=== PATIENT | female | born 1975 | race Caucasian/White ===

== ENCOUNTER → 2016-03-10 | Outpatient (CLI) | payer BC, OTHER ==
[2016-03-10 09:24] VITALS: BP 123/66; PULSE 75; RESP 20; TEMP 98.2; BMI 33.7
--- NOTE | 2016-03-10 10:08 | P.PN ---
Progress Note - Text The patient was seen in the bariatric clinic. She is doing well. Her MARY drain output is approximately 100 mL per day. Her skin incision site is healing. On exam her lesser she'll. Her abdomen soft. Her incision is clean dry intact. A staple had rotated this is removed today. The patient is status post cholecystectomy. She'll follow-up in one week for MARY drain removal. She was instructed to stop smoking again.
== END | disposition home or self-care (01) ==
LOC: BARWHC3 09:09
PROVIDERS: ATTEND Surgery
DX: Z48.815 Encounter for surgical aftercare following surgery on the digestive system (principal); Z98.84 Bariatric surgery status; F17.200 Nicotine dependence, unspecified, uncomplicated
CPT/HCPCS: 99212

== ENCOUNTER → 2016-03-16 | Outpatient (CLI) | payer BC, OTHER ==
[2016-03-16 14:30] VITALS: BP 130/83; PULSE 75; RESP 16; TEMP 97.2; BMI 33.5
--- NOTE | 2016-03-16 16:11 | P.HPBAR ---
Bariatric H&P - History & Physicial H&P Date: 03/16/16 History & Physicial: Visit/CC: Immanuel follow-up Patient initial contact: Initial weight: 191.416 kg Initial weight in pounds: 422.00 Height: 5 ft 3.5 in Initial BMI: 73.5 Last weight: Current weight: 87.09 kg Current weight in pounds: 192.00 Current BMI: 33.5 [place] body weight (based on NIH guidelines): 53.297 kg Excess body weight loss: 75.5% The patient is a 40 year-old F who presents for Bariatric Assessment. Patient presents today for panniculus fall. She is doing quite well. Her incision is well-healed. Past Medical History Past Medical History: Asthma, Diabetes Mellitus Additional Past Medical History / Comment(s): PAST HX OF HTN, DIABETES -NO PROBLEM NOW-CHECKS SELF DAILY BUT TAKES NO MEDS., VARICOSE VEINS, SLEEP APNEA- DOES NOT USE MACHINE, CHRONIC BACK PAIN, RIGHT ROTATOR CUFF TEAR WITH LIMITED R.O.M., RIGGS ON RIGHT ARM, HX OF MULTIPLE KIDNEY INFECTIONS.INTERMITENT PROBLEM SWALLOWING FOODS History of Any Multi-Drug Resistant Organisms: None Reported Past Surgical History: Bariatric Surgery, Section, Tubal Ligation Additional Past Surgical History / Comment(s): X3, GASTRIC SLEEVE ( 2011), OVARY REMOVED., URETERAL STENT.PANNICULECTOMY with 2 kurtis drains Past Psychological History: No Psychological Hx Reported, Anxiety, Panic Disorder Smoking Status: Current every day smoker Past Alcohol Use History: Occasional Past Drug Use History: None Reported Surgical - Exam Vital Signs Temp Pulse Resp BP 97.2 F L 75 16 130/83 03/16/16 14:28 03/16/16 14:28 03/16/16 14:28 03/16/16 14:28 - General well developed, no distress - Eyes PERRL - ENT normal pinna - Neck no masses - Respiratory normal expansion - Cardiovascular Rhythm: regular - Abdomen Abdomen: soft, non tender Bariatric Assessment & Plan Plan: Status post pinning colectomy. Patient chelsy removed in the office today. She'll follow-up in one month for recheck. Bariatric Checklist Checklist: Plan: Checklist: EGD: 1. Hiatal hernia: 2. H. Pylori: HgbA1c: Vitamin D: Smoking: Current every day smoker Primary care physician referral: dr miranda Psychiatry clearance: Cardiology clearance: Sleep study: Diet journal: VTE risk score: VTE risk level: Rehab needs at discharge:
== END | disposition home or self-care (01) ==
LOC: BARWHC3 13:51
PROVIDERS: ATTEND Surgery
DX: Z48.815 Encounter for surgical aftercare following surgery on the digestive system (principal); Z98.84 Bariatric surgery status; Z68.33 Body mass index [BMI] 33.0-33.9, adult; F17.200 Nicotine dependence, unspecified, uncomplicated
CPT/HCPCS: 99211

== ENCOUNTER → 2016-04-06 | Outpatient (CLI) | payer BC, OTHER ==
--- NOTE | 2016-04-06 14:44 | P.HPBAR ---
Bariatric H&P - History & Physicial H&P Date: 04/06/16 History & Physicial: Visit/CC: follow up panni visit Patient initial contact: Initial weight: 191.416 kg Initial weight in pounds: 422.00 Height: 5 ft 3.5 in Initial BMI: 73.5 Last weight: Current weight: 90.129 kg Current weight in pounds: 198.70 Current BMI: 34.6 [place] body weight (based on NIH guidelines): 53.297 kg Excess body weight loss: 73.3% The patient is a 41 year-old F who presents for Bariatric Assessment. The patient presents today for sleeve follow-up. She had a panniculectomy performed approximately 8 weeks ago. The patient states that she is also swelling in her left groin. She saw her family doctor who is concerned she may seroma. She is also recent started Chantix. She is continuing to smoke. Review of Systems Constitutional: Reports as per HPI Past Medical History Past Medical History: Asthma, Diabetes Mellitus Additional Past Medical History / Comment(s): PAST HX OF HTN, DIABETES -NO PROBLEM NOW-CHECKS SELF DAILY BUT TAKES NO MEDS., VARICOSE VEINS, SLEEP APNEA- DOES NOT USE MACHINE, CHRONIC BACK PAIN, RIGHT ROTATOR CUFF TEAR WITH LIMITED R.O.M., RIGGS ON RIGHT ARM, HX OF MULTIPLE KIDNEY INFECTIONS.INTERMITENT PROBLEM SWALLOWING FOODS History of Any Multi-Drug Resistant Organisms: None Reported Past Surgical History: Bariatric Surgery, Section, Tubal Ligation Additional Past Surgical History / Comment(s): X3, GASTRIC SLEEVE ( 2011), OVARY REMOVED., URETERAL STENT.PANNICULECTOMY with 2 kurtis drains Past Psychological History: No Psychological Hx Reported, Anxiety, Panic Disorder Smoking Status: Current every day smoker Past Alcohol Use History: Occasional Past Drug Use History: None Reported Surgical - Exam Vital Signs Temp Pulse BP 98.0 F 78 131/69 04/06/16 14:18 04/06/16 14:18 04/06/16 14:18 - General well developed, no distress - Eyes PERRL - ENT normal pinna - Neck no masses - Respiratory normal expansion - Cardiovascular Rhythm: regular - Abdomen 10 cm fluctuant mass consistent with seroma in the left groin. Abdomen: soft, non tender Bariatric Assessment & Plan Plan: Seroma of left abdominal wall/groin. Patient will undergo ultrasound-guided seroma drainage with catheter placement. She'll follow-up next week. Bariatric Checklist Checklist: Plan: Checklist: EGD: 1. Hiatal hernia: 2. H. Pylori: HgbA1c: Vitamin D: Smoking: Current every day smoker Primary care physician referral: Dr Alfaro Psychiatry clearance: Cardiology clearance: Sleep study: Diet journal: VTE risk score: VTE risk level: Rehab needs at discharge:
[2016-04-06 14:53] VITALS: BP 131/69; PULSE 78; TEMP 98; BMI 34.6
== END | disposition home or self-care (01) ==
LOC: BARWHC3 13:45
PROVIDERS: ATTEND Surgery
DX: Z48.815 Encounter for surgical aftercare following surgery on the digestive system (principal); Z98.84 Bariatric surgery status; Z68.34 Body mass index [BMI] 34.0-34.9, adult; F17.200 Nicotine dependence, unspecified, uncomplicated; K91.872 Postprocedural seroma of a digestive system organ or structure following a digestive system procedure
CPT/HCPCS: 99211

== ENCOUNTER 2016-04-07 08:15 | Day surgery (SDC) | payer BC, OTHER ==
[2016-04-07 08:33] VITALS: BP 143/84; PULSE 78; RESP 18; TEMP 98.1
--- NOTE | 2016-04-07 10:27 | US ---
EXAMINATION TYPE: US peritoneal/retroperi drain DATE OF EXAM: 04/07/2016 9:45 AM HISTORY: Seroma postop FINDINGS: Maximal barrier technique was utilized. The skin overlying a suitable path to the fluid wa s localized with ultrasound and the overlying skin prepped and draped. Lidocaine was used for local a nesthesia. A skin cris made with a scalpel. Access was gained under direct ultrasound guidance to t he fluid with a 21-gauge needle. Ultrasound was utilized using sterile technique. A 0.018 inch wire was advanced. Access site was dilated and an 8.5-[place] catheter advanced into the seroma. Hussein us serous fluid returned. Catheter fixed to the skin. Hemostasis achieved. No immediate complicati on and the patient remained in stable condition. IMPRESSION: STATUS POST ULTRASOUND GUIDED SEROMA DRAINAGE, THIS PROCEDURE WAS PERFORMED BY THE UNDERS IGNED.
== END 2016-04-07 10:45 | disposition home or self-care (01) ==
LOC: RADPROMAIN 08:15
PROVIDERS: ATTEND Surgery
DX: L76.34 Postprocedural seroma of skin and subcutaneous tissue following other procedure (principal); T79.2XXA Traumatic secondary and recurrent hemorrhage and seroma, initial encounter
CPT/HCPCS: 49406; 76942

== ENCOUNTER 2016-04-13 13:50 | Emergency (ER) | payer BC, OTHER ==
[2016-04-13] MEDS ORDERED: SODIUM CHLORIDE 0.9% 1,000 ML IV STA (15:08)
[2016-04-13] MEDS ORDERED: METOCLOPRAMIDE 5 MG/ML 2 ML VIAL IVP STA (15:08)
[2016-04-13] MEDS ORDERED: HYDROmorphone 1 MG/ML 1 ML SYRINGE IVP STA (15:08)
[2016-04-13] MEDS ORDERED: SODIUM CHLORIDE 0.9% 500 ML IV STA (15:08)
--- NOTE | 2016-04-13 15:18 | ED ---
General Adult HPI - General Chief complaint: Headache Stated complaint: post op-fever/chills/chest pain Time Seen by Provider: 04/13/16 14:51 Source: patient, family, RN notes reviewed, old records reviewed Mode of arrival: wheelchair Limitations: no limitations - History of Present Illness Initial comments: Chief complaint history of present illness a 41-year-old female here with his significant other. The patient had a headache since this morning. Patient has a history of migraines but a few recently. Patient also here because she has aches and pains to her body. She did have a flu shot this year. Another complaint is she had Fred-Atkins type drain placed one week ago to drain fluid accumulated since February 19 when she had a panniculectomy. The drainage in the bag the past 3 days approximately 10 ML's. Serosanguineous in color. The patient does report when she removed the dressing the tubing cannot approximate 5 inches. There was foul-smelling material on the bandage which had not been changed since initial application one week ago. - Related Data Home Medications Medication Instructions Recorded Confirmed Fexofenadine HCl [[place]ana Allergy] 180 mg PO DAILY 07/19/14 04/13/16 Omeprazole [PriLOSEC] 20 mg PO AC-BRKFST 07/19/14 04/13/16 Simvastatin [Zocor] 40 mg PO QAM 07/19/14 04/13/16 Venlafaxine HCl ER [Effexor XR] 150 mg PO DAILY 07/19/14 04/13/16 Albuterol Sulfate [Proair Hfa] 1 - 2 puff INHALATION RT-Q6H PRN 02/17/16 Ascorbic Acid [Vitamin C] 1,000 mg PO DAILY 02/17/16 04/13/16 Vitamin B Complex 1 cap PO DAILY 02/17/16 04/13/16 oxyCODONE-APAP 10-325MG [Percocet 1 tab PO TID PRN 03/02/16 04/13/16 10-325 mg] Varenicline [Chantix] 1 mg PO BID 04/06/16 04/13/16 ALPRAZolam [Xanax] 0.5 mg PO TID PRN 04/13/16 04/13/16 Calcium Citrate 1200mg+Vitamin D 1 tab PO DAILY 04/13/16 04/13/16 Magnesium Gluconate [Magonate] 500 mg PO DAILY 04/13/16 04/13/16 Multivit-Min/Fe Fum/FA/Vit K 1 cap PO DAILY 04/13/16 04/13/16 [Women's Multivatimin] [place]-3 Fatty Acids/Fish Oil [Fish 1 cap PO DAILY 04/13/16 04/13/16 Oil 1,000 mg Softgel] Allergies Allergy/AdvReac Type Severity Reaction Status Date / Time latex Allergy Unknown Rash/Hives Verified 04/13/16 15:24 Review of Systems ROS Statement: Those systems with pertinent positive or pertinent negative responses have been documented in the HPI. Review of systems patient has a bitemporal headache typical of migraines in the past mild photophobia nausea vomiting at home. Rotator cuff pain on the right shoulder which is causing her usual left arm left shoulder more developing 8 tension neck discomfort for several weeks. No meningismus. No shortness of breath. Mild discomfort to the pectoralis muscle on the right anterior chest wall. Reproducible with palpation. Appetite is unchanged, bowel habits normal. No change in urination pattern. All systems are reviewed past medical problems significant for migraines, asthma she smokes she is on Chantix trying to stop. Diabetes been controlled with weight loss currently diet controlled. Past history of hypertension is also stop when she lost large amount of weight over the past 5 years. Surgeries bariatric surgery 5 years ago, 3 C-sections, tubal ligation, cervical fusion, panniculectomy 7 weeks ago. She has had a Fred-Atkins type drain in the left side which are in the large amount initially and only 10 mL with a past 3 days. Again she does smoke trying to stop with Chantix drink alcohol socially. ROS Other: All systems not noted in ROS Statement are negative. Past Medical History Past Medical History: Asthma, Diabetes Mellitus Additional Past Medical History / Comment(s): PAST HX OF HTN, DIABETES -NO PROBLEM NOW-CHECKS SELF DAILY BUT TAKES NO MEDS., VARICOSE VEINS, SLEEP APNEA- DOES NOT USE MACHINE, CHRONIC BACK PAIN, RIGHT ROTATOR CUFF TEAR WITH LIMITED R.O.M., RIGGS ON RIGHT ARM, HX OF MULTIPLE KIDNEY INFECTIONS.INTERMITENT PROBLEM SWALLOWING FOODS History of Any Multi-Drug Resistant Organisms: None Reported Past Surgical History: Bariatric Surgery, Section, Tubal Ligation Additional Past Surgical History / Comment(s): X3, GASTRIC SLEEVE ( 2011), OVARY REMOVED., URETERAL STENT.PANNICULECTOMY with 2 kurtis drains Past Anesthesia/Blood Transfusion Reactions: No Reported Reaction Past Psychological History: No Psychological Hx Reported, Anxiety, Panic Disorder Smoking Status: Current every day smoker Past Alcohol Use History: Occasional Past Drug Use History: Marijuana General Exam - General Exam Comments Initial Comments: General: The patient is awake and alert, complaining of a migraine headache bitemporal. Mild photophobia nausea vomiting at home. No signs temp 98.2 pulse 96 respiratory rate 20 pulse ox 96% room air blood pressure 118/78 Eye: Pupils are equal, round and reactive to light, extra-ocular movements are intact ; there is normal conjunctiva bilaterally. No signs of icterus. Ears, nose, mouth and throat: There are moist mucous membranes and no oral lesions. Neck: The neck is supple, there is no tenderness . Cardiovascular: There is a regular rate and rhythm. No murmur, rub or gallop is appreciated. Respiratory: Lungs are clear to auscultation, respirations are non-labored, breath sounds are equal. No wheezes, stridor, rales, or rhonchi. Gastrointestinal: Soft, non-distended, tender abdomen on the cicatrix of the panniculectomy. Fred-Atkins type drain draining only had an ulcer over the past 3 days per patient.. There is no rebound or guarding present. No CVA tenderness. Bowel sounds are unremarkable. Bowel movements normal. Back: No complaint of any back pain. Musculoskeletal: Right rotator cuff history of pain. Increasing used to the left arm causing discomfort to the left arm. Neurological: Neurologically intact no focal or lateralizing findings Skin: Skin is warm and dry and no rashes or lesions are noted. Limitations: no limitations Course Vital Signs 04/13/16 04/13/16 04/13/16 13:52 15:42 16:58 Temperature 98.2 F 98.4 F 97.4 F L Pulse Rate 96 84 78 Respiratory 20 16 18 Rate Blood Pressure 118/78 128/62 128/80 O2 Sat by Pulse 96 98 98 Oximetry Medical Decision Making - Medical Decision Making Medical decision making the patient's white count is 10 hemoglobin 12 hematocrit 38, potassium 4.6, BUN 19 creatinine 0.6 with a GFR greater than 60. Glucose 93. Influenza negative. Urine since it clean no signs of infection. Doing better after the medications given and the hydration. I discussed with her general surgeon Dr. dr javier he agrees the Fred- Atkins type drain can be removed at this time as it was supposed to have been removed in the office today had she gone to the office and had the patient states she's had less than 10 ML's in the drainage bag over the past 3 days. The patient will be advised to follow-up with Dr. Faye. - Lab Data Result diagrams: 04/13/16 15:35 04/13/16 15:35 Lab Results 04/13/16 04/13/16 04/13/16 Range/Units 15:35 15:35 15:35 WBC 10.6 (3.8-10.6) k/uL RBC 4.10 (3.80-5.40) m/uL Hgb 12.6 (11.4-16.0) gm/dL Hct 38.3 (34.0-46.0) % MCV 93.4 (80.0-100.0) fL MCH 30.7 (25.0-35.0) pg MCHC 32.8 (31.0-37.0) g/dL RDW 12.5 (11.5-15.5) % Plt Count 347 (150-450) k/uL Neutrophils % 60 % Lymphocytes % 29 % Monocytes % 5 % Eosinophils % 4 % Basophils % 1 % Neutrophils # 6.4 (1.3-7.7) k/uL Lymphocytes # 3.0 (1.0-4.8) k/uL Monocytes # 0.5 (0-1.0) k/uL Eosinophils # 0.4 (0-0.7) k/uL Basophils # 0.1 (0-0.2) k/uL Sodium 140 (137-145) mmol/L Potassium 4.6 (3.5-5.1) mmol/L Chloride 106 (98-107) mmol/L Carbon Dioxide 23 (22-30) mmol/L Anion Gap 11 mmol/L BUN 19 H (7-17) mg/dL Creatinine 0.61 (0.52-1.04) mg/dL Est GFR (MDRD) Af Amer >60 (>60 ml/min/1.73 sqM) Est GFR (MDRD) Non-Af >60 (>60 ml/min/1.73 sqM) Glucose 93 (74-99) mg/dL Calcium 9.5 (8.4-10.2) mg/dL Total Bilirubin 0.4 (0.2-1.3) mg/dL AST 24 (14-36) U/L ALT 26 (9-52) U/L Alkaline Phosphatase 36 L (38-126) U/L Total Protein 7.0 (6.3-8.2) g/dL Albumin 3.9 (3.5-5.0) g/dL Urine Color Urine Appearance (Clear) Urine pH (5.0-8.0) Ur Specific [place] (1.001-1.035) Urine Protein (Negative) Urine Glucose (UA) (Negative) Urine Ketones (Negative) Urine Blood (Negative) Urine Nitrate (Negative) Urine Bilirubin (Negative) Urine Urobilinogen (<2.0) mg/dL Ur Leukocyte Esterase (Negative) Influenza Type A RNA Not Detected (Not Detectd) Influenza Type B (PCR) Not Detected (Not Detectd) 04/13/16 Range/Units 15:35 WBC (3.8-10.6) k/uL RBC (3.80-5.40) m/uL Hgb (11.4-16.0) gm/dL Hct (34.0-46.0) % MCV (80.0-100.0) fL MCH (25.0-35.0) pg MCHC (31.0-37.0) g/dL RDW (11.5-15.5) % Plt Count (150-450) k/uL Neutrophils % % Lymphocytes % % Monocytes % % Eosinophils % % Basophils % % Neutrophils # (1.3-7.7) k/uL Lymphocytes # (1.0-4.8) k/uL Monocytes # (0-1.0) k/uL Eosinophils # (0-0.7) k/uL Basophils # (0-0.2) k/uL Sodium (137-145) mmol/L Potassium (3.5-5.1) mmol/L Chloride (98-107) mmol/L Carbon Dioxide (22-30) mmol/L Anion Gap mmol/L BUN (7-17) mg/dL Creatinine (0.52-1.04) mg/dL Est GFR (MDRD) Af Amer (>60 ml/min/1.73 sqM) Est GFR (MDRD) Non-Af (>60 ml/min/1.73 sqM) Glucose (74-99) mg/dL Calcium (8.4-10.2) mg/dL Total Bilirubin (0.2-1.3) mg/dL AST (14-36) U/L ALT (9-52) U/L Alkaline Phosphatase (38-126) U/L Total Protein (6.3-8.2) g/dL Albumin (3.5-5.0) g/dL Urine Color [place] Urine Appearance Clear (Clear) Urine pH 6.0 (5.0-8.0) Ur Specific [place] 1.015 (1.001-1.035) Urine Protein Negative (Negative) Urine Glucose (UA) Negative (Negative) Urine Ketones Negative (Negative) Urine Blood Negative (Negative) Urine Nitrate Negative (Negative) Urine Bilirubin Negative (Negative) Urine Urobilinogen <2.0 (<2.0) mg/dL Ur Leukocyte Esterase Negative (Negative) Influenza Type A RNA (Not Detectd) Influenza Type B (PCR) (Not Detectd) Disposition Clinical Impression: Migraine Disposition: HOME SELF-CARE Condition: Fair Instructions: Acute Headache (ED) Time of Disposition: 17:36
[2016-04-13 15:59] LABS: Basophils # (A) 0.1 k/uL (0-0.2); Basophils % (A) 1 %; CH 30.9; CHCM 33.2; Eosinophils # (A) 0.4 k/uL (0-0.7); Eosinophils % (A) 4 %; HCT 38.3 % (34.0-46.0); HDW 2.35; HGB 12.6 gm/dL (11.4-16.0); Luc # (Auto) 0.21; Luc % (Auto) 2; Lymphocytes % (A) 29 %; MCH 30.7 pg (25.0-35.0); MCHC 32.8 g/dL (31.0-37.0); MCV 93.4 fL (80.0-100.0); Mean Platelet Volume 6.9; Monocytes # (A) 0.5 k/uL (0-1.0); Monocytes % (A) 5 %; Neutrophils # (A) 6.4 k/uL (1.3-7.7); Neutrophils % (A) 60 %; RDW 12.5 % (11.5-15.5); WBC 10.6 k/uL (3.8-10.6); WBC (Perox) 10.78
[2016-04-13 16:08] LABS: ALT 26 U/L (9-52); AST 24 U/L (14-36); Alkaline Phosphatase 36 U/L (38-126); Anion Gap 11 mmol/L; Blood Urea Nitrogen 19 mg/dL (7-17); Calcium 9.5 mg/dL (8.4-10.2); Carbon Dioxide 23 mmol/L (22-30); Chloride 106 mmol/L (98-107); Glucose 93 mg/dL (74-99); Non-African American GFR(MDRD) >60 (>60 ml/min/1.73 sqM); Potassium 4.6 mmol/L (3.5-5.1); Sodium 140 mmol/L (137-145); Total Bilirubin 0.4 mg/dL (0.2-1.3)
[2016-04-13 16:16] LABS: Appearance,Urine Clear (Clear); Bilirubin,Urine Negative (Negative); Glucose,Urine (UA) Negative (Negative); Ketones,Urine Negative (Negative); Leukocyte Esterase,Urine Negative (Negative); Nitrite,Urine Negative (Negative); Protein,Urine Negative (Negative); Specific Gravity,Urine 1.015 (1.001-1.035); UA Billing (MACRO vs. MICRO) CHEM; Urobilinogen,Urine <2.0 mg/dL (<2.0)
[2016-04-13] MEDS ORDERED: ALPRAZolam 0.5 MG TAB PO STA (16:51)
[2016-04-13 18:00] VITALS: BP 132/60; PULSE 70; RESP 13; TEMP 98.7
== END 2016-04-13 18:00 | disposition home or self-care (01) ==
LOC: EC 13:50
DX: G43.909 Migraine, unspecified, not intractable, without status migrainosus (principal); E11.9 Type 2 diabetes mellitus without complications; Z98.84 Bariatric surgery status; F41.9 Anxiety disorder, unspecified; F41.0 Panic disorder [episodic paroxysmal anxiety]; Z79.899 Other long term (current) drug therapy; Z91.040 Latex allergy status; F17.200 Nicotine dependence, unspecified, uncomplicated
CPT/HCPCS: 36415; 80053; 85025; 81003; 87070; 87086; 87205; 87502; 99284; 96374; 96375; 96361; J2765; J1170; 87077; 87186

== ENCOUNTER 2016-04-17 17:09 | Emergency (ER) | payer BC, OTHER ==
[2016-04-17] MEDS ORDERED: HYDROcodone/APAP 5-325MG 1 EACH TAB PO STA (18:09)
[2016-04-17] MEDS ORDERED: ALPRAZolam 0.5 MG TAB PO STA (18:09)
[2016-04-17 18:52] VITALS: RESP 18
[2016-04-17 19:03] LABS: ALT 27 U/L (9-52); AST 16 U/L (14-36); Alkaline Phosphatase 43 U/L (38-126); Anion Gap 11 mmol/L; Blood Urea Nitrogen 18 mg/dL (7-17); Calcium 9.1 mg/dL (8.4-10.2); Carbon Dioxide 23 mmol/L (22-30); Chloride 109 mmol/L (98-107); Glucose 131 mg/dL (74-99); Non-African American GFR(MDRD) >60 (>60 ml/min/1.73 sqM); Potassium 4.2 mmol/L (3.5-5.1); Sodium 143 mmol/L (137-145); Total Bilirubin 0.3 mg/dL (0.2-1.3); Total Protein 6.4 g/dL (6.3-8.2)
[2016-04-17 19:07] LABS: Basophils # (A) 0.1 k/uL (0-0.2); Basophils % (A) 1 %; Eosinophils # (A) 0.3 k/uL (0-0.7); Eosinophils % (A) 3 %; HCT 36.7 % (34.0-46.0); HDW 2.36; HGB 11.5 gm/dL (11.4-16.0); Luc # (Auto) 0.13; Luc % (Auto) 1; Lymphocytes # (A) 2.8 k/uL (1.0-4.8); Lymphocytes % (A) 26 %; MCH 29.5 pg (25.0-35.0); MCHC 31.3 g/dL (31.0-37.0); MCV 94.3 fL (80.0-100.0); Mean Platelet Volume 7.9; Monocytes # (A) 0.6 k/uL (0-1.0); Monocytes % (A) 6 %; Neutrophils # (A) 6.9 k/uL (1.3-7.7); Neutrophils % (A) 64 %; RBC 3.89 m/uL (3.80-5.40); RDW 12.4 % (11.5-15.5); WBC 10.9 k/uL (3.8-10.6); WBC (Perox) 10.56
[2016-04-17 20:11] VITALS: BP 122/81; PULSE 96; TEMP 97.8
[2016-04-17] MEDS ORDERED: HYDROmorphone 1 MG/ML 1 ML SYRINGE IVP STA (20:13)
--- NOTE | 2016-04-17 20:18 | ED ---
General Adult HPI - General Chief complaint: Abdominal Pain Stated complaint: abd pain Time Seen by Provider: 04/17/16 17:17 Source: patient, RN notes reviewed Mode of arrival: ambulatory Limitations: no limitations - History of Present Illness Initial comments: This patient is a 41-year-old woman who presents because she was phoned about some culture results. She states that she had been in here last week, she had had a surgical drain removed. Patient states that she received a call today that a culture performed at that time had shown some form of bacteria. The patient denies any fever or chills. She denies abdominal pain. The patient does believe that she has had a bit of increase in her abdominal girth, that she states she had last time she required the drain to be placed. The patient is now nearly 8 weeks following panniculectomy by Dr. Vanessa. -: hour(s) Radiation: non-radiation Severity scale (1-10): 0 Consistency: constant Improves with: none Worsens with: none Associated Symptoms: other (Increased abdominal girth) - Related Data Home Medications Medication Instructions Recorded Confirmed Fexofenadine HCl [Shoshana Allergy] 180 mg PO DAILY 07/19/14 04/17/16 Omeprazole [PriLOSEC] 20 mg PO AC-BRKFST 07/19/14 04/17/16 Simvastatin [Zocor] 40 mg PO QAM 07/19/14 04/17/16 Venlafaxine HCl ER [Effexor XR] 150 mg PO DAILY 07/19/14 04/17/16 Albuterol Sulfate [Proair Hfa] 1 - 2 puff INHALATION RT-Q6H PRN 02/17/16 Ascorbic Acid [Vitamin C] 1,000 mg PO DAILY 02/17/16 04/17/16 Vitamin B Complex 1 cap PO DAILY 02/17/16 04/17/16 oxyCODONE-APAP 10-325MG [Percocet 1 tab PO TID PRN 03/02/16 04/17/16 10-325 mg] ALPRAZolam [Xanax] 0.5 mg PO TID PRN 04/13/16 04/17/16 Calcium Citrate 1200mg+Vitamin D 1 tab PO DAILY 04/13/16 04/17/16 Magnesium Gluconate [Magonate] 500 mg PO DAILY 04/13/16 04/17/16 Multivit-Min/Fe Fum/FA/Vit K 1 cap PO DAILY 04/13/16 04/17/16 [Women's Multivatimin] [place]-3 Fatty Acids/Fish Oil [Fish 1 cap PO DAILY 04/13/16 04/17/16 Oil 1,000 mg Softgel] Previous Rx's Medication Instructions Recorded ALPRAZolam [Xanax] 0.5 mg PO HS PRN #6 tab 04/17/16 Allergies Allergy/AdvReac Type Severity Reaction Status Date / Time latex Allergy Unknown Rash/Hives Verified 04/17/16 17:44 animal dander Allergy Unknown Verified 04/17/16 17:44 Review of Systems ROS Statement: Those systems with pertinent positive or pertinent negative responses have been documented in the HPI. ROS Other: All systems not noted in ROS Statement are negative. Constitutional: Denies: fever, chills Respiratory: Denies: cough, dyspnea Cardiovascular: Denies: chest pain, palpitations, edema Gastrointestinal: Reports: as per HPI. Denies: abdominal pain, nausea, vomiting , diarrhea, constipation Genitourinary: Denies: dysuria, hematuria Musculoskeletal: Denies: back pain Skin: Denies: rash Neurological: Denies: headache, weakness, numbness Past Medical History Past Medical History: Asthma, Diabetes Mellitus Additional Past Medical History / Comment(s): PAST HX OF HTN, DIABETES -NO PROBLEM NOW-CHECKS SELF DAILY BUT TAKES NO MEDS., VARICOSE VEINS, SLEEP APNEA- DOES NOT USE MACHINE, CHRONIC BACK PAIN, RIGHT ROTATOR CUFF TEAR WITH LIMITED R.O.M., RIGGS ON RIGHT ARM, HX OF MULTIPLE KIDNEY INFECTIONS.INTERMITENT PROBLEM SWALLOWING FOODS History of Any Multi-Drug Resistant Organisms: None Reported Past Surgical History: Bariatric Surgery, Section, Tubal Ligation Additional Past Surgical History / Comment(s): X3, GASTRIC SLEEVE ( 2011), OVARY REMOVED., URETERAL STENT.PANNICULECTOMY with 2 kurtis drains Past Anesthesia/Blood Transfusion Reactions: No Reported Reaction Past Psychological History: No Psychological Hx Reported, Anxiety, Panic Disorder Smoking Status: Current every day smoker Past Alcohol Use History: Occasional Past Drug Use History: Marijuana General Exam Limitations: no limitations General appearance: alert, in no apparent distress, obese Head exam: Present: atraumatic, normocephalic Eye exam: Present: normal appearance. Absent: scleral icterus, conjunctival injection Respiratory exam: Present: normal lung sounds bilaterally. Absent: respiratory distress, wheezes, rales, rhonchi, stridor Cardiovascular Exam: Present: regular rate, normal rhythm, normal heart sounds. Absent: systolic murmur, diastolic murmur, rubs, gallop GI/Abdominal exam: Present: soft, normal bowel sounds. Absent: distended, tenderness, guarding, rebound, mass Extremities exam: Present: normal inspection, normal capillary refill. Absent: pedal edema, calf tenderness Back exam: Absent: CVA tenderness (R), CVA tenderness (L) Neurological exam: Present: alert Skin exam: Present: warm, dry, intact, normal color. Absent: rash Course Vital Signs 04/17/16 04/17/16 04/17/16 17:11 18:50 20:09 Temperature 98.5 F 97.8 F Pulse Rate 105 H 98 96 Respiratory 20 18 18 Rate Blood Pressure 133/65 107/51 122/81 O2 Sat by Pulse 98 98 96 Oximetry Medical Decision Making - Lab Data Result diagrams: 04/17/16 18:07 04/17/16 18:07 Lab Results 04/17/16 04/17/16 04/17/16 Range/Units 18:07 18:07 18:07 WBC 10.9 H (3.8-10.6) k/uL RBC 3.89 (3.80-5.40) m/uL Hgb 11.5 (11.4-16.0) gm/dL Hct 36.7 (34.0-46.0) % MCV 94.3 (80.0-100.0) fL MCH 29.5 (25.0-35.0) pg MCHC 31.3 (31.0-37.0) g/dL RDW 12.4 (11.5-15.5) % Plt Count 300 (150-450) k/uL Neutrophils % 64 % Lymphocytes % 26 % Monocytes % 6 % Eosinophils % 3 % Basophils % 1 % Neutrophils # 6.9 (1.3-7.7) k/uL Lymphocytes # 2.8 (1.0-4.8) k/uL Monocytes # 0.6 (0-1.0) k/uL Eosinophils # 0.3 (0-0.7) k/uL Basophils # 0.1 (0-0.2) k/uL ESR 4 (0-20) mm/hr Sodium 143 (137-145) mmol/L Potassium 4.2 (3.5-5.1) mmol/L Chloride 109 H (98-107) mmol/L Carbon Dioxide 23 (22-30) mmol/L Anion Gap 11 mmol/L BUN 18 H (7-17) mg/dL Creatinine 0.70 (0.52-1.04) mg/dL Est GFR (MDRD) Af Amer >60 (>60 ml/min/1.73 sqM) Est GFR (MDRD) Non-Af >60 (>60 ml/min/1.73 sqM) Glucose 131 H (74-99) mg/dL Plasma Lactic Acid [place] 1.6 (0.7-2.0) mmol/L Calcium 9.1 (8.4-10.2) mg/dL Total Bilirubin 0.3 (0.2-1.3) mg/dL AST 16 (14-36) U/L ALT 27 (9-52) U/L Alkaline Phosphatase 43 (38-126) U/L Total Protein 6.4 (6.3-8.2) g/dL Albumin 3.4 L (3.5-5.0) g/dL Urine Color Urine Appearance (Clear) Urine pH (5.0-8.0) Ur Specific [place] (1.001-1.035) Urine Protein (Negative) Urine Glucose (UA) (Negative) Urine Ketones (Negative) Urine Blood (Negative) Urine Nitrate (Negative) Urine Bilirubin (Negative) Urine Urobilinogen (<2.0) mg/dL Ur Leukocyte Esterase (Negative) Urine RBC (0-5) /hpf Urine WBC (0-5) /hpf Ur Squamous Epith Cells (0-4) /hpf Urine Bacteria (None) /hpf Hyaline Casts (0-2) /lpf Urine Mucus (None) /hpf 04/17/16 Range/Units 20:40 WBC (3.8-10.6) k/uL RBC (3.80-5.40) m/uL Hgb (11.4-16.0) gm/dL Hct (34.0-46.0) % MCV (80.0-100.0) fL MCH (25.0-35.0) pg MCHC (31.0-37.0) g/dL RDW (11.5-15.5) % Plt Count (150-450) k/uL Neutrophils % % Lymphocytes % % Monocytes % % Eosinophils % % Basophils % % Neutrophils # (1.3-7.7) k/uL Lymphocytes # (1.0-4.8) k/uL Monocytes # (0-1.0) k/uL Eosinophils # (0-0.7) k/uL Basophils # (0-0.2) k/uL ESR (0-20) mm/hr Sodium (137-145) mmol/L Potassium (3.5-5.1) mmol/L Chloride (98-107) mmol/L Carbon Dioxide (22-30) mmol/L Anion Gap mmol/L BUN (7-17) mg/dL Creatinine (0.52-1.04) mg/dL Est GFR (MDRD) Af Amer (>60 ml/min/1.73 sqM) Est GFR (MDRD) Non-Af (>60 ml/min/1.73 sqM) Glucose (74-99) mg/dL Plasma Lactic Acid [place] (0.7-2.0) mmol/L Calcium (8.4-10.2) mg/dL Total Bilirubin (0.2-1.3) mg/dL AST (14-36) U/L ALT (9-52) U/L Alkaline Phosphatase (38-126) U/L Total Protein (6.3-8.2) g/dL Albumin (3.5-5.0) g/dL Urine Color Light Red Urine Appearance Cloudy H (Clear) Urine pH 5.5 (5.0-8.0) Ur Specific [place] 1.023 (1.001-1.035) Urine Protein Trace H (Negative) Urine Glucose (UA) Negative (Negative) Urine Ketones Negative (Negative) Urine Blood Negative (Negative) Urine Nitrate Negative (Negative) Urine Bilirubin Negative (Negative) Urine Urobilinogen <2.0 (<2.0) mg/dL Ur Leukocyte Esterase Moderate H (Negative) Urine RBC 1 (0-5) /hpf Urine WBC 5 (0-5) /hpf Ur Squamous Epith Cells 2 (0-4) /hpf Urine Bacteria Rare H (None) /hpf Hyaline Casts 12 H (0-2) /lpf Urine Mucus Rare H (None) /hpf Disposition Clinical Impression: Abdominal pain Disposition: HOME SELF-CARE Condition: Good Instructions: Abdominal Pain (ED) Prescriptions: ALPRAZolam [Xanax] 0.5 mg PO HS PRN #6 tab PRN Reason: Anxiety Referrals: William Vanessa MD [STAFF PHYSICIAN] - 1-2 days
[2016-04-17 20:51] LABS: Appearance,Urine Cloudy (Clear); Bacteria,Urine Rare /hpf; Bilirubin,Urine Negative (Negative); Glucose,Urine (UA) Negative (Negative); Ketones,Urine Negative (Negative); Leukocyte Esterase,Urine Moderate (Negative); Mucus,Urine Rare /hpf; Nitrite,Urine Negative (Negative); PH, Urine 5.5 (5.0-8.0); Particle Count 4413; Protein,Urine Trace (Negative); RBC,Urine 1 /hpf (0-5); Specific Gravity,Urine 1.023 (1.001-1.035); Squamous Epithelial Cell,Urine 2 /hpf (0-4); UA Billing (MACRO vs. MICRO) MICRO; Urobilinogen,Urine <2.0 mg/dL (<2.0); WBC,Urine 5 /hpf (0-5)
[2016-04-18 15:18] LABS: Erythrocyte Sedimentation Rate 42 mm/hr (0-20)
== END 2016-04-17 21:05 | disposition home or self-care (01) ==
LOC: EC 17:09
DX: R10.9 Unspecified abdominal pain (principal); Z98.890 Other specified postprocedural states; F41.9 Anxiety disorder, unspecified; F41.0 Panic disorder [episodic paroxysmal anxiety]; Z87.442 Personal history of urinary calculi; Z91.040 Latex allergy status; Z79.899 Other long term (current) drug therapy
CPT/HCPCS: 36415; 80053; 85652; 83605; 85025; 81001; 87040; 99284; 96374; J1170

== ENCOUNTER → 2016-04-20 | Outpatient (CLI) | payer BC, OTHER ==
[2016-04-20 15:44] VITALS: BP 147/59; TEMP 97.8; BMI 35.2
--- NOTE | 2016-05-11 13:22 | P.HPBAR ---
Bariatric H&P - History & Physicial H&P Date: 04/20/16 History & Physicial: Visit/CC: follow up pane visit Patient initial contact: Initial weight: 191.416 kg Initial weight in pounds: 422.00 Height: 5 ft 3.5 in Initial BMI: 73.5 Last weight: Current weight: 91.671 kg Current weight in pounds: 202.10 Current BMI: 35.2 [place] body weight (based on NIH guidelines): 53.297 kg Excess body weight loss: 72.2% The patient is a 41 year-old F who presents for Bariatric Assessment. The patient has developed a recurrent seroma at her panniculectomy incision site in the lower left quadrant. She had a ultrasound had a drain placed which was removed in the emergency room. Patient states that her urine was cultured and the drain bag was cultured. Her drain bag culture shows evidence of Pseudomonas. Urine shows evidence of staph. I explained to her that these are most likely contaminants. Patient's had no sign of infection of her abdominal wall. Past Medical History Past Medical History: Asthma, Diabetes Mellitus Additional Past Medical History / Comment(s): PAST HX OF HTN, DIABETES -NO PROBLEM NOW-CHECKS SELF DAILY BUT TAKES NO MEDS., VARICOSE VEINS, SLEEP APNEA- DOES NOT USE MACHINE, CHRONIC BACK PAIN, RIGHT ROTATOR CUFF TEAR WITH LIMITED R.O.M., RIGGS ON RIGHT ARM, HX OF MULTIPLE KIDNEY INFECTIONS.INTERMITENT PROBLEM SWALLOWING FOODS History of Any Multi-Drug Resistant Organisms: None Reported Past Surgical History: Bariatric Surgery, Section, Tubal Ligation Additional Past Surgical History / Comment(s): X3, GASTRIC SLEEVE ( 2011), OVARY REMOVED., URETERAL STENT.PANNICULECTOMY with 2 kurtis drains Past Anesthesia/Blood Transfusion Reactions: No Reported Reaction Past Psychological History: No Psychological Hx Reported, Anxiety, Panic Disorder Smoking Status: Current every day smoker Past Alcohol Use History: Occasional Past Drug Use History: Marijuana Surgical - Exam Vital Signs Temp BP 97.8 F 147/59 04/20/16 15:37 04/20/16 15:37 - General well developed, no distress - Respiratory normal expansion - Cardiovascular Rhythm: regular - Abdomen Seroma and left lower quadrant. There is no sign of infection. There is no redness or cellulitis. Abdomen: soft, non tender Bariatric Assessment & Plan Plan: Stromal left lower quadrant. Patient will be scheduled for ultrasound-guided drainage of seroma. Patient will follow-up in the bandage clinic for the drain removal. Bariatric Checklist Checklist: Plan: Checklist: EGD: 1. Hiatal hernia: 2. H. Pylori: HgbA1c: Vitamin D: Smoking: Current every day smoker Primary care physician referral: Dr Alfaro Psychiatry clearance: Cardiology clearance: Sleep study: Diet journal: VTE risk score: VTE risk level: Rehab needs at discharge:
== END | disposition home or self-care (01) ==
LOC: BARWHC3 14:47
PROVIDERS: ATTEND Surgery
DX: Z48.815 Encounter for surgical aftercare following surgery on the digestive system (principal); T88.8XXD Other specified complications of surgical and medical care, not elsewhere classified, subsequent encounter; Z98.84 Bariatric surgery status
CPT/HCPCS: 99211

== ENCOUNTER 2016-05-13 08:00 | Emergency (ER) | payer BC, OTHER ==
[2016-05-13] MEDS ORDERED: ONDANSETRON 4 MG/2 ML VIAL IVP STA (08:21)
[2016-05-13] MEDS ORDERED: SODIUM CHLORIDE 0.9% 1,000 ML IV STA (08:21)
[2016-05-13] MEDS ORDERED: HYDROmorphone 1 MG/ML 1 ML SYRINGE IVP STA ×2 (08:21→11:33)
--- NOTE | 2016-05-13 08:32 | ED ---
General Adult HPI - General Chief complaint: Back Pain/Injury Stated complaint: POSS KIDNEY STONE Time Seen by Provider: 05/13/16 08:08 Source: patient, RN notes reviewed Mode of arrival: wheelchair Limitations: no limitations - History of Present Illness Initial comments: 41-year-old female presents emergency Department chief complaint right flank pain. Patient states her brother yesterday. Patient states that nothing seems to really make it feel much better or worse though she did state that she gets some relief when she puts pressure on her right low back region. Patient states she has been in the hospital since February secondary to seromas and infections related to her pannicolectomy done at [facility]. Patient states she has a Fred-Atkins drain in her right lower abdomen which has been there for weeks because of recurrent seromas. Patient states she does have an appointment yesterday to have it checked out and changed. Patient states ever since or back pains been getting worse though she states she does not feel this is related to her drain. Patient denies nausea, vomiting diarrhea constipation. Denies fever or chills. Patient denies any injuries. Patient had no chest pain or shortness breath. She did note that her urine was darker than usual and she's had kidney stones, pyelonephritis in the past. - Related Data Home Medications Medication Instructions Recorded Confirmed Fexofenadine HCl [Shoshana Allergy] 180 mg PO DAILY 07/19/14 05/13/16 Omeprazole [PriLOSEC] 20 mg PO AC-BRKFST 07/19/14 05/13/16 Simvastatin [Zocor] 40 mg PO QAM 07/19/14 05/13/16 Venlafaxine HCl ER [Effexor XR] 150 mg PO DAILY 07/19/14 05/13/16 Albuterol Sulfate [Proair Hfa] 1 - 2 puff INHALATION RT-QID PRN 02/17/16 Ascorbic Acid [Vitamin C] 1,000 mg PO DAILY 02/17/16 05/13/16 Vitamin B Complex 1 cap PO DAILY 02/17/16 05/13/16 oxyCODONE-APAP 10-325MG [Percocet 1 tab PO TID PRN 03/02/16 05/13/16 10-325 mg] ALPRAZolam [Xanax] 0.5 mg PO TID PRN 04/13/16 05/13/16 Calcium Citrate 1200mg+Vitamin D 1 tab PO DAILY 04/13/16 05/13/16 Magnesium Gluconate [Magonate] 500 mg PO DAILY 04/13/16 05/13/16 Multivit-Min/Fe Fum/FA/Vit K 1 cap PO DAILY 04/13/16 05/13/16 [Women's Multivatimin] Fish Oil/Dha/Epa [Fish Oil 1,200 1 cap PO DAILY 05/13/16 05/13/16 mg Fish Oil] Gabapentin [Neurontin] 300 mg PO HS 05/13/16 05/13/16 Naproxen/Esomeprazole Mag [[place] 1 tab PO BID 05/13/16 05/13/16 Dr 500-20 mg Tablet] Previous Rx's Medication Instructions Recorded HYDROcodone/APAP 7.5-325MG [[place] 1 tab PO Q6HR PRN #20 tab 05/13/16 7.5-325] Sulfamethox-Tmp 800-160Mg [Bactrim 1 each PO Q12HR #20 tab 05/13/16 Ds] Allergies Allergy/AdvReac Type Severity Reaction Status Date / Time latex Allergy Unknown Rash/Hives Verified 05/13/16 08:54 animal dander Allergy Unknown Verified 05/13/16 08:54 Review of Systems ROS Statement: Those systems with pertinent positive or pertinent negative responses have been documented in the HPI. ROS Other: All systems not noted in ROS Statement are negative. Past Medical History Past Medical History: Asthma, Diabetes Mellitus Additional Past Medical History / Comment(s): PAST HX OF HTN, DIABETES -NO PROBLEM NOW-CHECKS SELF DAILY BUT TAKES NO MEDS., VARICOSE VEINS, SLEEP APNEA- DOES NOT USE MACHINE, CHRONIC BACK PAIN, RIGHT ROTATOR CUFF TEAR WITH LIMITED R.O.M., RIGGS ON RIGHT ARM, HX OF MULTIPLE KIDNEY INFECTIONS.INTERMITENT PROBLEM SWALLOWING FOODS History of Any Multi-Drug Resistant Organisms: None Reported Past Surgical History: Bariatric Surgery, Section, Tubal Ligation Additional Past Surgical History / Comment(s): X3, GASTRIC SLEEVE ( 2011), OVARY REMOVED., URETERAL STENT.PANNICULECTOMY with 2 mary drains Past Anesthesia/Blood Transfusion Reactions: No Reported Reaction Past Psychological History: No Psychological Hx Reported, Anxiety, Panic Disorder Smoking Status: Current every day smoker Past Alcohol Use History: Occasional Past Drug Use History: Marijuana General Exam Limitations: no limitations General appearance: alert, in no apparent distress Respiratory exam: Present: normal lung sounds bilaterally. Absent: respiratory distress, wheezes, rales, rhonchi, stridor Cardiovascular Exam: Present: regular rate, normal rhythm, normal heart sounds. Absent: systolic murmur, diastolic murmur, rubs, gallop, clicks GI/Abdominal exam: Present: soft, tenderness (Minimal lower abdominal tenderness ), normal bowel sounds, other ( surgical scars noted, MARY drain over the right lower). Absent: distended, guarding, rebound, rigid Back exam: Present: full ROM, tenderness (Mild tenderness the right flank), CVA tenderness (R). Absent: CVA tenderness (L), muscle spasm, paraspinal tenderness , vertebral tenderness Neurological exam: Present: alert, oriented X3, CN II-XII intact Skin exam: Present: warm, dry, intact, normal color. Absent: rash Course Vital Signs 05/13/16 05/13/16 08:02 10:23 Temperature 98.6 F 97.9 F Pulse Rate 81 80 Respiratory 18 16 Rate Blood Pressure 142/69 150/68 O2 Sat by Pulse 99 98 Oximetry Medical Decision Making - Medical Decision Making 41-year-old female presented for right flank pain. There is no nephrolithiasis noted on the right side no he ureteral calculi. Patient does have urinary tract infection with no evidence of pyelonephritis. Patient will be treated for urinary tract infection. Patient does have some gallstones noted and which may be leading to her pain. Patient be given pain medication and follow-up with surgeon. Return parameters were discussed. - Lab Data Result diagrams: 05/13/16 08:40 05/13/16 08:40 Lab Results 05/13/16 05/13/16 05/13/16 Range/Units 08:30 08:40 08:40 WBC 7.9 (3.8-10.6) k/uL RBC 4.25 (3.80-5.40) m/uL Hgb 12.5 (11.4-16.0) gm/dL Hct 39.3 (34.0-46.0) % MCV 92.5 (80.0-100.0) fL MCH 29.4 (25.0-35.0) pg MCHC 31.8 (31.0-37.0) g/dL RDW 13.1 (11.5-15.5) % Plt Count 348 (150-450) k/uL Neutrophils % 52 % Lymphocytes % 38 % Monocytes % 5 % Eosinophils % 3 % Basophils % 0 % Neutrophils # 4.1 (1.3-7.7) k/uL Lymphocytes # 3.0 (1.0-4.8) k/uL Monocytes # 0.4 (0-1.0) k/uL Eosinophils # 0.3 (0-0.7) k/uL Basophils # 0.0 (0-0.2) k/uL PT (9.0-12.0) sec INR (<1.1) APTT (22.0-30.0) sec Sodium 142 (137-145) mmol/L Potassium 4.8 (3.5-5.1) mmol/L Chloride 106 (98-107) mmol/L Carbon Dioxide 25 (22-30) mmol/L Anion Gap 11 mmol/L BUN 24 H (7-17) mg/dL Creatinine 0.70 (0.52-1.04) mg/dL Est GFR (MDRD) Af Amer >60 (>60 ml/min/1.73 sqM) Est GFR (MDRD) Non-Af >60 (>60 ml/min/1.73 sqM) Glucose 97 (74-99) mg/dL Calcium 9.6 (8.4-10.2) mg/dL Total Bilirubin 0.6 (0.2-1.3) mg/dL AST 21 (14-36) U/L ALT 27 (9-52) U/L Alkaline Phosphatase 30 L (38-126) U/L Total Protein 7.5 (6.3-8.2) g/dL Albumin 4.0 (3.5-5.0) g/dL Amylase 53 (30-110) U/L Lipase 54 (23-300) U/L Urine Color Yellow Urine Appearance Cloudy H (Clear) Urine pH 6.0 (5.0-8.0) Ur Specific [place] 1.027 (1.001-1.035) Urine Protein Trace H (Negative) Urine Glucose (UA) Negative (Negative) Urine Ketones Negative (Negative) Urine Blood Negative (Negative) Urine Nitrate Positive H (Negative) Urine Bilirubin Negative (Negative) Urine Urobilinogen 2.0 (<2.0) mg/dL Ur Leukocyte Esterase Large H (Negative) Urine RBC 4 (0-5) /hpf Urine WBC 65 H (0-5) /hpf Ur Squamous Epith Cells 5 H (0-4) /hpf Urine Bacteria Many H (None) /hpf Urine Mucus Few H (None) /hpf 05/13/16 Range/Units 08:40 WBC (3.8-10.6) k/uL RBC (3.80-5.40) m/uL Hgb (11.4-16.0) gm/dL Hct (34.0-46.0) % MCV (80.0-100.0) fL MCH (25.0-35.0) pg MCHC (31.0-37.0) g/dL RDW (11.5-15.5) % Plt Count (150-450) k/uL Neutrophils % % Lymphocytes % % Monocytes % % Eosinophils % % Basophils % % Neutrophils # (1.3-7.7) k/uL Lymphocytes # (1.0-4.8) k/uL Monocytes # (0-1.0) k/uL Eosinophils # (0-0.7) k/uL Basophils # (0-0.2) k/uL PT 10.1 (9.0-12.0) sec INR 1.0 (<1.1) APTT 26.8 (22.0-30.0) sec Sodium (137-145) mmol/L Potassium (3.5-5.1) mmol/L Chloride (98-107) mmol/L Carbon Dioxide (22-30) mmol/L Anion Gap mmol/L BUN (7-17) mg/dL Creatinine (0.52-1.04) mg/dL Est GFR (MDRD) Af Amer (>60 ml/min/1.73 sqM) Est GFR (MDRD) Non-Af (>60 ml/min/1.73 sqM) Glucose (74-99) mg/dL Calcium (8.4-10.2) mg/dL Total Bilirubin (0.2-1.3) mg/dL AST (14-36) U/L ALT (9-52) U/L Alkaline Phosphatase (38-126) U/L Total Protein (6.3-8.2) g/dL Albumin (3.5-5.0) g/dL Amylase (30-110) U/L Lipase (23-300) U/L Urine Color Urine Appearance (Clear) Urine pH (5.0-8.0) Ur Specific [place] (1.001-1.035) Urine Protein (Negative) Urine Glucose (UA) (Negative) Urine Ketones (Negative) Urine Blood (Negative) Urine Nitrate (Negative) Urine Bilirubin (Negative) Urine Urobilinogen (<2.0) mg/dL Ur Leukocyte Esterase (Negative) Urine RBC (0-5) /hpf Urine WBC (0-5) /hpf Ur Squamous Epith Cells (0-4) /hpf Urine Bacteria (None) /hpf Urine Mucus (None) /hpf Disposition Clinical Impression: Urinary tract infection, Cholelithiasis, Right flank pain Disposition: HOME SELF-CARE Condition: Stable Instructions: Gallstones (ED) Additional Instructions: Please return to the Emergency Department if symptoms worsen or any other concerns. Prescriptions: HYDROcodone/APAP 7.5-325MG [[place] 7.5-325] 1 tab PO Q6HR PRN #20 tab PRN Reason: Pain Sulfamethox-Tmp 800-160Mg [Bactrim Ds] 1 each PO Q12HR #20 tab Time of Disposition: 11:35
[2016-05-13 08:55] LABS: Basophils % (A) 0 %; CH 30.2; CHCM 32.8; Eosinophils # (A) 0.3 k/uL (0-0.7); Eosinophils % (A) 3 %; HCT 39.3 % (34.0-46.0); HDW 2.44; HGB 12.5 gm/dL (11.4-16.0); Luc # (Auto) 0.16; Luc % (Auto) 2; Lymphocytes % (A) 38 %; MCH 29.4 pg (25.0-35.0); MCHC 31.8 g/dL (31.0-37.0); MCV 92.5 fL (80.0-100.0); Monocytes # (A) 0.4 k/uL (0-1.0); Monocytes % (A) 5 %; Neutrophils # (A) 4.1 k/uL (1.3-7.7); Neutrophils % (A) 52 %; RBC 4.25 m/uL (3.80-5.40); RDW 13.1 % (11.5-15.5); WBC 7.9 k/uL (3.8-10.6); WBC (Perox) 8.19
[2016-05-13 09:09] LABS: Appearance,Urine Cloudy (Clear); Bacteria,Urine Many /hpf; Bilirubin,Urine Negative (Negative); Glucose,Urine (UA) Negative (Negative); Ketones,Urine Negative (Negative); Leukocyte Esterase,Urine Large (Negative); Mucus,Urine Few /hpf; Nitrite,Urine Positive (Negative); Particle Count 29726; Protein,Urine Trace (Negative); RBC,Urine 4 /hpf (0-5); Specific Gravity,Urine 1.027 (1.001-1.035); Squamous Epithelial Cell,Urine 5 /hpf (0-4); UA Billing (MACRO vs. MICRO) MICRO; WBC,Urine 65 /hpf (0-5)
[2016-05-13 09:13] LABS: Partial Thromboplastin Time 26.8 sec (22.0-30.0); Prothrombin Time 10.1 sec (9.0-12.0)
[2016-05-13 09:14] LABS: ALT 27 U/L (9-52); AST 21 U/L (14-36); Alkaline Phosphatase 30 U/L (38-126); Amylase 53 U/L (30-110); Anion Gap 11 mmol/L; Blood Urea Nitrogen 24 mg/dL (7-17); Calcium 9.6 mg/dL (8.4-10.2); Carbon Dioxide 25 mmol/L (22-30); Chloride 106 mmol/L (98-107); Glucose 97 mg/dL (74-99); Non-African American GFR(MDRD) >60 (>60 ml/min/1.73 sqM); Potassium 4.8 mmol/L (3.5-5.1); Sodium 142 mmol/L (137-145); Total Bilirubin 0.6 mg/dL (0.2-1.3); Total Protein 7.5 g/dL (6.3-8.2)
--- NOTE | 2016-05-13 09:50 | XR ---
EXAMINATION TYPE: XR KUB DATE OF EXAM: 05/13/2016 9:14 AM COMPARISON: NONE INDICATION: Right flank pain x1 day TECHNIQUE: Single view abdomen upright view FINDINGS: Nonspecific abdomen bowel gas is present. No suspicious air-fluid levels or differential air-fluid le vels are present. No free air is present. Psoas margins are normal. No organomegaly is present. Catheter is present within the pelvis. No abnormal calcifications are evident. IMPRESSION: 1. Unremarkable Abdomen
[2016-05-13] MEDS ORDERED: KETOROLAC 30 MG/ML 1 ML VIAL IVP STA (10:00)
[2016-05-13 10:26] VITALS: RESP 16
--- NOTE | 2016-05-13 11:12 | CT ---
EXAMINATION TYPE: CT abdomen pelvis wo con DATE OF EXAM: 05/13/2016 10:44 AM COMPARISON: NONE HISTORY: Rt Flank pain CT DLP: 1031 mGycm FINDINGS: LUNG BASES: No evidence for nodule. No evidence for infiltrate. LIVER/GB: Small gallstones are identified. No space-occupying hepatic lesion. PANCREAS: No pancreatic mass identified. No inflammatory process seen. SPLEEN: No evidence for splenomegaly. No intrasplenic lesions seen. ADRENALS: No adrenal nodules identified. No evidence for thickening. KIDNEYS: No evidence for renal mass. 6 mm nonobstructing lower pole left renal calculus. No right-marta ed calculi identified at this time. 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 No hydronephro sis. BOWEL: Appendix has a normal appearance. No evidence of bowel obstruction. No inflammatory process. S igmoid diverticulosis without diverticulitis. Changes of gastric bypass procedure. Lymph nodes: No evidence for adenopathy greater than 1 cm. Abdominal aorta: Atheromatous changes seen. No evidence for aneurysm. Genital organs: No significant abnormality. Other: Postoperative changes anterior abdominal wall with surgical drain in place. No evidence for dr lynn collection. IMPRESSION: 1. NONOBSTRUCTING LEFT-SIDED NEPHROLITHIASIS. 2. SMALL GALLSTONES IDENTIFIED WITHOUT WALL THICKENING. 3. SIGMOID DIVERTICULOSIS WITHOUT DIVERTICULITIS. 4. POSTOPERATIVE CHANGES ANTERIOR ABDOMINAL WALL DISCUSSED.
[2016-05-13 12:09] VITALS: BP 124/71; PULSE 78; TEMP 98.7
== END 2016-05-13 12:30 | disposition home or self-care (01) ==
LOC: EC 08:00
DX: K80.20 Calculus of gallbladder without cholecystitis without obstruction (principal); N39.0 Urinary tract infection, site not specified; J45.909 Unspecified asthma, uncomplicated; J30.81 Allergic rhinitis due to animal (cat) (dog) hair and dander; F41.9 Anxiety disorder, unspecified; F41.0 Panic disorder [episodic paroxysmal anxiety]; F17.200 Nicotine dependence, unspecified, uncomplicated; Z79.1 Long term (current) use of non-steroidal anti-inflammatories (NSAID); Z79.899 Other long term (current) drug therapy; Z91.040 Latex allergy status
CPT/HCPCS: 99284; 96365; 96375 ×3; 96376; 96361; 36415; 80053; 82150; 83690; 85025; 85610; 85730; 81001; 87040; 87086; 87077; 87186; 74000; 74176; J2405; J0696; J1885; J1170

== ENCOUNTER 2016-05-26 05:10 | Emergency (ER) | payer BC, OTHER ==
[2016-05-26 05:19] VITALS: TEMP 97.6
[2016-05-26] MEDS ORDERED: ONDANSETRON 4 MG/2 ML VIAL IVP STA (05:41)
[2016-05-26] MEDS ORDERED: SODIUM CHLORIDE 0.9% 500 ML IV STA (05:41)
[2016-05-26] MEDS ORDERED: MORPHINE SULFATE 4 MG/ML SYRINGE IV STA (05:41)
[2016-05-26 06:10] LABS: Basophils # (A) 0.1 k/uL (0-0.2); Basophils % (A) 1 %; CH 30.3; Eosinophils % (A) 0 %; HCT 38.7 % (34.0-46.0); HDW 2.38; HGB 12.9 gm/dL (11.4-16.0); Luc % (Auto) 2; Lymphocytes # (A) 2.8 k/uL (1.0-4.8); Lymphocytes % (A) 35 %; MCH 30.7 pg (25.0-35.0); MCHC 33.3 g/dL (31.0-37.0); MCV 92.4 fL (80.0-100.0); Mean Platelet Volume 7.9; Monocytes # (A) 0.4 k/uL (0-1.0); Monocytes % (A) 4 %; Neutrophils # (A) 4.7 k/uL (1.3-7.7); Neutrophils % (A) 57 %; RBC 4.19 m/uL (3.80-5.40); RDW 13.1 % (11.5-15.5); WBC 8.1 k/uL (3.8-10.6); WBC (Perox) 8.12
[2016-05-26 06:12] LABS: Appearance,Urine Clear (Clear); Bacteria,Urine Moderate /hpf; Bilirubin,Urine Negative (Negative); Glucose,Urine (UA) Negative (Negative); Ketones,Urine Negative (Negative); Leukocyte Esterase,Urine Moderate (Negative); Mucus,Urine Rare /hpf; Nitrite,Urine Negative (Negative); PH, Urine 5.5 (5.0-8.0); Particle Count 4529; Protein,Urine Trace (Negative); RBC,Urine 2 /hpf (0-5); Specific Gravity,Urine 1.022 (1.001-1.035); Squamous Epithelial Cell,Urine 3 /hpf (0-4); UA Billing (MACRO vs. MICRO) MICRO; WBC,Urine 59 /hpf (0-5)
[2016-05-26 06:31] LABS: ALT 33 U/L (9-52); AST 27 U/L (14-36); Alkaline Phosphatase 38 U/L (38-126); Amylase 58 U/L (30-110); Anion Gap 9 mmol/L; Blood Urea Nitrogen 20 mg/dL (7-17); Calcium 9.3 mg/dL (8.4-10.2); Carbon Dioxide 26 mmol/L (22-30); Chloride 107 mmol/L (98-107); Glucose 98 mg/dL (74-99); Non-African American GFR(MDRD) >60 (>60 ml/min/1.73 sqM); Potassium 3.9 mmol/L (3.5-5.1); Sodium 142 mmol/L (137-145); Total Bilirubin 0.3 mg/dL (0.2-1.3); Total Protein 7.8 g/dL (6.3-8.2)
[2016-05-26] MEDS ORDERED: HYDROmorphone 1 MG/ML 1 ML SYRINGE IVP STA (07:15)
--- NOTE | 2016-05-26 07:58 | US ---
EXAMINATION TYPE: US abdomen limited DATE OF EXAM: 05/26/2016 7:21 AM COMPARISON: Correlation CT 05/13/2016 CLINICAL HISTORY: 41-year-old female with pain, attention RUQ. Abdominal pain, known gallstones seen on CT TECHNIQUE: Multiple sonographic images of the right upper quadrant are obtained. FINDINGS: Liver Length: 17.7 cm Gallbladder Wall: 0.3 cm CBD: 0.2 cm Right Kidney: 12.8 x 5.3 x 4.6 cm Pancreas: Suboptimal visualization of the pancreatic tail secondary to shadowing from bowel gas. Vis ualized portions show no gross abnormality. Liver: Upper limits of normal for size, otherwise width normal homogeneous echotexture and no focal lesion seen. Gallbladder: There is layering gravel. No abnormal gallbladder distention, wall thickening, or perich olecystic fluid. Evidence for sonographic Conley's sign: No CBD: Within normal limits Right Kidney: No hydronephrosis. There is a 1.2 cm cortical cyst at the lower pole. IMPRESSION: 1. Borderline hepatomegaly. 2. Layering gravel within the gallbladder. No ancillary findings of acute cholecystitis. 3. No biliary ductal dilatation.
--- NOTE | 2016-05-26 08:07 | ED ---
Abdominal Pain HPI - General Source: patient Mode of arrival: ambulatory Limitations: no limitations - History of Present Illness MD Complaint: abdominal pain, flank pain Onset/Timin -: hour(s) Location: RUQ, R flank Radiation: none Severity: severe Quality: aching Consistency: constant Improves With: nothing Worsens With: nothing Context: other (After eating popcorn) Associated Symptoms: nausea, vomiting <Norman Martinez - Last Filed: 05/26/16 08:07> <Abilio Padilla - Last Filed: 05/26/16 08:41> - General Chief Complaint: Abdominal Pain Stated Complaint: abd pain, poss gallstones Time Seen by Provider: 05/26/16 05:17 - History of Present Illness Initial Comments: This patient is a 41-year-old woman with history of previous bariatric surgery. She states that she developed some right upper quadrant abdominal pain and right flank pain between 9 and 10 PM last night. The patient does note that she had eaten some popcorn prior to the development of the pain. She describes the pain as constant, aching, worse when she presses on her side. She has not noted any relieving factors. she is only rating the pain is severe. She is also been having some nausea and a couple of episodes of vomiting. The patient denies any change in bowel movement or urination. (Norman Martinez) - Related Data Home Medications Medication Instructions Recorded Confirmed Fexofenadine HCl [Shoshana Allergy] 180 mg PO DAILY 07/19/14 05/26/16 Omeprazole [PriLOSEC] 20 mg PO AC-BRKFST 07/19/14 05/26/16 Simvastatin [Zocor] 40 mg PO QAM 07/19/14 05/26/16 Venlafaxine HCl ER [Effexor XR] 150 mg PO DAILY 07/19/14 05/26/16 Albuterol Sulfate [Proair Hfa] 1 - 2 puff INHALATION RT-QID PRN 02/17/16 Ascorbic Acid [Vitamin C] 1,000 mg PO DAILY 02/17/16 05/26/16 Vitamin B Complex 1 cap PO DAILY 02/17/16 05/26/16 oxyCODONE-APAP 10-325MG [Percocet 1 tab PO TID PRN 03/02/16 05/26/16 10-325 mg] ALPRAZolam [Xanax] 0.5 mg PO TID PRN 04/13/16 05/26/16 Calcium Citrate 1200mg+Vitamin D 1 tab PO DAILY 04/13/16 05/26/16 Magnesium Gluconate [Magonate] 500 mg PO DAILY 04/13/16 05/26/16 Multivit-Min/Fe Fum/FA/Vit K 1 cap PO DAILY 04/13/16 05/26/16 [Women's Multivatimin] Fish Oil/Dha/Epa [Fish Oil 1,200 1 cap PO DAILY 05/13/16 05/26/16 mg Fish Oil] Gabapentin [Neurontin] 300 mg PO HS 05/13/16 05/26/16 Previous Rx's Medication Instructions Recorded Levofloxacin [Levaquin] 750 mg PO DAILY #10 tab 05/26/16 Allergies Allergy/AdvReac Type Severity Reaction Status Date / Time latex Allergy Unknown Rash/Hives Verified 05/26/16 08:00 animal dander Allergy Unknown Verified 05/26/16 08:00 Review of Systems ROS Other: All systems not noted in ROS Statement are negative. Constitutional: Denies: fever, chills Respiratory: Denies: cough, dyspnea, wheezes, hemoptysis Cardiovascular: Denies: chest pain, syncope Gastrointestinal: Reports: abdominal pain, nausea, vomiting. Denies: diarrhea, constipation, hematemesis, melena, hematochezia Genitourinary: Denies: dysuria, hematuria Musculoskeletal: Denies: back pain Skin: Denies: rash Neurological: Denies: headache, weakness, numbness <Norman Martinez - Last Filed: 05/26/16 08:07> ROS Other: All systems not noted in ROS Statement are negative. <Abilio Padilla - Last Filed: 05/26/16 08:41> ROS Statement: Those systems with pertinent positive or pertinent negative responses have been documented in the HPI. Past Medical History Past Medical History: Asthma, Diabetes Mellitus Additional Past Medical History / Comment(s): PAST HX OF HTN, DIABETES -NO PROBLEM NOW-CHECKS SELF DAILY BUT TAKES NO MEDS., VARICOSE VEINS, SLEEP APNEA- DOES NOT USE MACHINE, CHRONIC BACK PAIN, RIGHT ROTATOR CUFF TEAR WITH LIMITED R.O.M., RIGGS ON RIGHT ARM, HX OF MULTIPLE KIDNEY INFECTIONS.INTERMITENT PROBLEM SWALLOWING FOODS History of Any Multi-Drug Resistant Organisms: None Reported Past Surgical History: Bariatric Surgery, Section, Tubal Ligation Additional Past Surgical History / Comment(s): X3, GASTRIC SLEEVE ( 2011), OVARY REMOVED., URETERAL STENT.PANNICULECTOMY with 2 kurtis drains Past Anesthesia/Blood Transfusion Reactions: No Reported Reaction Past Psychological History: No Psychological Hx Reported, Anxiety, Panic Disorder Smoking Status: Current every day smoker Past Alcohol Use History: Occasional Past Drug Use History: Marijuana <MichelleNorman - Last Filed: 05/26/16 08:07> General Exam Limitations: no limitations General appearance: alert, in no apparent distress, obese Head exam: Present: atraumatic, normocephalic Eye exam: Present: normal appearance. Absent: scleral icterus, conjunctival injection ENT exam: Present: normal oropharynx Respiratory exam: Present: normal lung sounds bilaterally. Absent: respiratory distress, wheezes, rales, rhonchi, stridor Cardiovascular Exam: Present: regular rate, normal rhythm, normal heart sounds. Absent: systolic murmur, diastolic murmur, rubs, gallop GI/Abdominal exam: Present: soft, tenderness (There is mild right upper quadrant tenderness without rebound or guarding.), normal bowel sounds, other ( The patient's surgical scars are well-healed.). Absent: distended, guarding, rebound, rigid, mass, pulsatile mass, hernia Extremities exam: Present: normal inspection, normal capillary refill. Absent: pedal edema, calf tenderness Back exam: Present: normal inspection. Absent: CVA tenderness (R), CVA tenderness (L) Neurological exam: Present: alert Skin exam: Present: warm, dry, intact, normal color. Absent: rash <MichelleNorman - Last Filed: 05/26/16 08:07> Medical Decision Making - Lab Data Result diagrams: 05/26/16 05:54 05/26/16 05:54 <MichelleOnrman - Last Filed: 05/26/16 08:07> - Lab Data Result diagrams: 05/26/16 05:54 05/26/16 05:54 <Abilio Padilla - Last Filed: 05/26/16 08:41> - Medical Decision Making I went in to reevaluate the patient I palpate her belly there was no specific area of tenderness. Patient states she was feeling better but not completely relieved of pain. Patient's urine did show an infection. (Abilio Padilla) - Lab Data Lab Results 05/26/16 05/26/16 05/26/16 Range/Units 05:54 05:54 05:54 WBC 8.1 (3.8-10.6) k/uL RBC 4.19 (3.80-5.40) m/uL Hgb 12.9 (11.4-16.0) gm/dL Hct 38.7 (34.0-46.0) % MCV 92.4 (80.0-100.0) fL MCH 30.7 (25.0-35.0) pg MCHC 33.3 (31.0-37.0) g/dL RDW 13.1 (11.5-15.5) % Plt Count 301 (150-450) k/uL Neutrophils % 57 % Lymphocytes % 35 % Monocytes % 4 % Eosinophils % 0 % Basophils % 1 % Neutrophils # 4.7 (1.3-7.7) k/uL Lymphocytes # 2.8 (1.0-4.8) k/uL Monocytes # 0.4 (0-1.0) k/uL Eosinophils # 0.0 (0-0.7) k/uL Basophils # 0.1 (0-0.2) k/uL Sodium 142 (137-145) mmol/L Potassium 3.9 (3.5-5.1) mmol/L Chloride 107 (98-107) mmol/L Carbon Dioxide 26 (22-30) mmol/L Anion Gap 9 mmol/L BUN 20 H (7-17) mg/dL Creatinine 0.60 (0.52-1.04) mg/dL Est GFR (MDRD) Af Amer >60 (>60 ml/min/1.73 sqM) Est GFR (MDRD) Non-Af >60 (>60 ml/min/1.73 sqM) Glucose 98 (74-99) mg/dL Calcium 9.3 (8.4-10.2) mg/dL Total Bilirubin 0.3 (0.2-1.3) mg/dL AST 27 (14-36) U/L ALT 33 (9-52) U/L Alkaline Phosphatase 38 (38-126) U/L Total Protein 7.8 (6.3-8.2) g/dL Albumin 4.3 (3.5-5.0) g/dL Amylase 58 (30-110) U/L Lipase 75 (23-300) U/L Urine Color Urine Appearance (Clear) Urine pH (5.0-8.0) Ur Specific [place] (1.001-1.035) Urine Protein (Negative) Urine Glucose (UA) (Negative) Urine Ketones (Negative) Urine Blood (Negative) Urine Nitrite (Negative) Urine Bilirubin (Negative) Urine Urobilinogen (<2.0) mg/dL Ur Leukocyte Esterase (Negative) Urine RBC (0-5) /hpf Urine WBC (0-5) /hpf Ur Squamous Epith Cells (0-4) /hpf Urine Bacteria (None) /hpf Urine Mucus (None) /hpf Urine HCG, Qual Not Detected (Not Detectd) 05/26/16 Range/Units 05:54 WBC (3.8-10.6) k/uL RBC (3.80-5.40) m/uL Hgb (11.4-16.0) gm/dL Hct (34.0-46.0) % MCV (80.0-100.0) fL MCH (25.0-35.0) pg MCHC (31.0-37.0) g/dL RDW (11.5-15.5) % Plt Count (150-450) k/uL Neutrophils % % Lymphocytes % % Monocytes % % Eosinophils % % Basophils % % Neutrophils # (1.3-7.7) k/uL Lymphocytes # (1.0-4.8) k/uL Monocytes # (0-1.0) k/uL Eosinophils # (0-0.7) k/uL Basophils # (0-0.2) k/uL Sodium (137-145) mmol/L Potassium (3.5-5.1) mmol/L Chloride (98-107) mmol/L Carbon Dioxide (22-30) mmol/L Anion Gap mmol/L BUN (7-17) mg/dL Creatinine (0.52-1.04) mg/dL Est GFR (MDRD) Af Amer (>60 ml/min/1.73 sqM) Est GFR (MDRD) Non-Af (>60 ml/min/1.73 sqM) Glucose (74-99) mg/dL Calcium (8.4-10.2) mg/dL Total Bilirubin (0.2-1.3) mg/dL AST (14-36) U/L ALT (9-52) U/L Alkaline Phosphatase (38-126) U/L Total Protein (6.3-8.2) g/dL Albumin (3.5-5.0) g/dL Amylase (30-110) U/L Lipase (23-300) U/L Urine Color Yellow Urine Appearance Clear (Clear) Urine pH 5.5 (5.0-8.0) Ur Specific [place] 1.022 (1.001-1.035) Urine Protein Trace H (Negative) Urine Glucose (UA) Negative (Negative) Urine Ketones Negative (Negative) Urine Blood Negative (Negative) Urine Nitrite Negative (Negative) Urine Bilirubin Negative (Negative) Urine Urobilinogen 3.0 (<2.0) mg/dL Ur Leukocyte Esterase Moderate H (Negative) Urine RBC 2 (0-5) /hpf Urine WBC 59 H (0-5) /hpf Ur Squamous Epith Cells 3 (0-4) /hpf Urine Bacteria Moderate H (None) /hpf Urine Mucus Rare H (None) /hpf Urine HCG, Qual (Not Detectd) Disposition <Norman Martinez - Last Filed: 05/26/16 08:07> Time of Disposition: 08:41 <Abilio Padilla - Last Filed: 05/26/16 08:41> Clinical Impression: Urinary tract infection, Abdominal pain Disposition: HOME SELF-CARE Instructions: Abdominal Pain (ED), Urinary Tract Infection in Women (ED) Prescriptions: Levofloxacin [Levaquin] 750 mg PO DAILY #10 tab Referrals: None,Stated [Primary Care Provider] - 1-2 days William Vanessa MD [STAFF PHYSICIAN] - 1-2 days
[2016-05-26 08:35] VITALS: BP 115/57; PULSE 71; RESP 18
== END 2016-05-26 08:55 | disposition home or self-care (01) ==
LOC: EC 05:10
DX: N39.0 Urinary tract infection, site not specified (principal); R10.11 Right upper quadrant pain; R11.2 Nausea with vomiting, unspecified; E11.9 Type 2 diabetes mellitus without complications; J45.909 Unspecified asthma, uncomplicated; I10 Essential (primary) hypertension; F17.200 Nicotine dependence, unspecified, uncomplicated; Z79.899 Other long term (current) drug therapy; Z91.040 Latex allergy status; Z91.09 Other allergy status, other than to drugs and biological substances
CPT/HCPCS: 36415; 80053; 82150; 83690; 85025; 81001; 81025; 76705; 99284; 96374; 96375 ×2; 96361 ×3; J2270; J2405; J1170

== ENCOUNTER 2016-08-16 16:21 | Emergency (ER) | payer BC, OTHER ==
[2016-08-16 16:28] VITALS: RESP 18
[2016-08-16] MEDS ORDERED: SODIUM CHLORIDE 0.9% 1,000 ML IV STA (17:00)
[2016-08-16 17:24] LABS: Basophils % (A) 1 %; CH 30.7; CHCM 32.5; Eosinophils # (A) 0.2 k/uL (0-0.7); Eosinophils % (A) 3 %; HCT 38.7 % (34.0-46.0); HDW 2.49; HGB 12.6 gm/dL (11.4-16.0); Luc # (Auto) 0.08; Luc % (Auto) 1; Lymphocytes # (A) 1.9 k/uL (1.0-4.8); Lymphocytes % (A) 27 %; MCH 30.7 pg (25.0-35.0); MCHC 32.4 g/dL (31.0-37.0); MCV 94.8 fL (80.0-100.0); Mean Platelet Volume 7.6; Monocytes # (A) 0.2 k/uL (0-1.0); Monocytes % (A) 3 %; Neutrophils # (A) 4.6 k/uL (1.3-7.7); Neutrophils % (A) 65 %; RBC 4.08 m/uL (3.80-5.40); RDW 13.6 % (11.5-15.5); WBC (Perox) 7.36
[2016-08-16 17:25] LABS: Appearance,Urine Clear (Clear); Bilirubin,Urine Negative (Negative); Glucose,Urine (UA) Negative (Negative); Ketones,Urine Negative (Negative); Leukocyte Esterase,Urine Negative (Negative); Nitrite,Urine Negative (Negative); Protein,Urine Negative (Negative); Specific Gravity,Urine 1.022 (1.001-1.035); UA Billing (MACRO vs. MICRO) CHEM
--- NOTE | 2016-08-16 17:27 | ED ---
Abdominal Pain HPI - General Chief Complaint: Abdominal Pain Stated Complaint: Abd Pain Time Seen by Provider: 08/16/16 16:59 Source: patient, EMS, RN notes reviewed Mode of arrival: EMS Limitations: no limitations - History of Present Illness Initial Comments: 41-year-old female presents emergency from chief complaint left flank pain. Patient states that she has also last few days. States is progressively got worse and the worst of her pain was today. She states that the pain seemed, low cell has moved up to her left upper flank region. She states that she has a history kidney stones and this feels very similar. Patient did notice that she had some darker urine than usual. Denies any bowel movements that she's been nauseated. No dysuria patient no diarrhea. She had a prior bariatric surgery, plastic surgery, tubal ligation and sections. - Related Data Home Medications Medication Instructions Recorded Confirmed Fexofenadine HCl [Shoshana Allergy] 180 mg PO DAILY 07/19/14 08/16/16 Omeprazole [PriLOSEC] 20 mg PO AC-BRKFST 07/19/14 08/16/16 Simvastatin [Zocor] 40 mg PO QAM 07/19/14 08/16/16 Venlafaxine HCl ER [Effexor XR] 150 mg PO DAILY 07/19/14 08/16/16 Albuterol Sulfate [Proair Hfa] 2 puff INHALATION RT-QID PRN 02/17/16 08/16/16 Ascorbic Acid [Vitamin C] 1,000 mg PO DAILY 02/17/16 08/16/16 Vitamin B Complex 1 cap PO DAILY 02/17/16 08/16/16 Calcium Citrate 1200mg+Vitamin D 1 tab PO DAILY 04/13/16 08/16/16 Magnesium Gluconate [Magonate] 500 mg PO DAILY 04/13/16 08/16/16 Multivit-Min/Iron/Folic Acid/K 1 cap PO DAILY 04/13/16 08/16/16 [Women's Multivatimin] Fish Oil/Dha/Epa [Fish Oil 1,200 1 cap PO DAILY 05/13/16 08/16/16 mg Fish Oil] Fluticasone Nasal [place] [Flonase 2 spr EA NOSTRIL DAILY PRN 08/16/16 08/16/16 Nasal [place]] Potassium 99 mg PO DAILY 08/16/16 08/16/16 Previous Rx's Medication Instructions Recorded Cyclobenzaprine [Flexeril] 10 mg PO TID PRN #15 tab 08/16/16 Hydrocodone/Acetaminophen [Clyde 1 tab PO Q6HR PRN #20 tab 08/16/16 5-325] Allergies Allergy/AdvReac Type Severity Reaction Status Date / Time latex Allergy Unknown Rash/Hives Verified 08/16/16 17:00 animal dander Allergy Unknown Verified 08/16/16 17:00 Review of Systems ROS Statement: Those systems with pertinent positive or pertinent negative responses have been documented in the HPI. ROS Other: All systems not noted in ROS Statement are negative. Past Medical History Past Medical History: Asthma, Diabetes Mellitus Additional Past Medical History / Comment(s): PAST HX OF HTN, DIABETES -NO PROBLEM NOW-CHECKS SELF DAILY BUT TAKES NO MEDS., VARICOSE VEINS, SLEEP APNEA- DOES NOT USE MACHINE, CHRONIC BACK PAIN, RIGHT ROTATOR CUFF TEAR WITH LIMITED R.O.M., RIGGS ON RIGHT ARM, HX OF MULTIPLE KIDNEY INFECTIONS.INTERMITENT PROBLEM SWALLOWING FOODS History of Any Multi-Drug Resistant Organisms: None Reported Past Surgical History: Bariatric Surgery, Section, Tubal Ligation Additional Past Surgical History / Comment(s): X3, GASTRIC SLEEVE ( 2011), OVARY REMOVED., URETERAL STENT.PANNICULECTOMY with 2 kurtis drains Past Anesthesia/Blood Transfusion Reactions: No Reported Reaction Past Psychological History: Anxiety, Depression, Panic Disorder Smoking Status: Current every day smoker Past Alcohol Use History: Occasional Past Drug Use History: Marijuana General Exam Limitations: no limitations General appearance: alert, in no apparent distress Respiratory exam: Present: normal lung sounds bilaterally. Absent: respiratory distress, wheezes, rales, rhonchi, stridor Cardiovascular Exam: Present: regular rate, normal rhythm, normal heart sounds. Absent: systolic murmur, diastolic murmur, rubs, gallop, clicks GI/Abdominal exam: Present: soft, tenderness (Mild suprapubic), normal bowel sounds. Absent: distended, guarding, rebound, rigid Back exam: Present: CVA tenderness (L) (Minimal). Absent: CVA tenderness (R) Neurological exam: Present: alert, oriented X3, CN II-XII intact Skin exam: Present: warm, dry, intact, normal color. Absent: rash Course Vital Signs 08/16/16 16:22 Temperature 96.5 F L Pulse Rate 79 Respiratory 18 Rate Blood Pressure 148/60 O2 Sat by Pulse 99 Oximetry Medical Decision Making - Medical Decision Making 41-year-old female presents emergency department for left flank pain. Patient' s labwork, urine and x-ray all within normals. Patient states she is history kidney stone states that she believes is what causes her pain. Patient also has admitted to increase lifting. Her pain is worse with movement. Painful second muscle skeletal in nature at this time. - Lab Data Result diagrams: 08/16/16 17:10 08/16/16 17:55 Lab Results 08/16/16 08/16/16 08/16/16 Range/Units 17:10 17:10 17:55 WBC 7.0 (3.8-10.6) k/uL RBC 4.08 (3.80-5.40) m/uL Hgb 12.6 (11.4-16.0) gm/dL Hct 38.7 (34.0-46.0) % MCV 94.8 (80.0-100.0) fL MCH 30.7 (25.0-35.0) pg MCHC 32.4 (31.0-37.0) g/dL RDW 13.6 (11.5-15.5) % Plt Count 238 (150-450) k/uL Neutrophils % 65 % Lymphocytes % 27 % Monocytes % 3 % Eosinophils % 3 % Basophils % 1 % Neutrophils # 4.6 (1.3-7.7) k/uL Lymphocytes # 1.9 (1.0-4.8) k/uL Monocytes # 0.2 (0-1.0) k/uL Eosinophils # 0.2 (0-0.7) k/uL Basophils # 0.0 (0-0.2) k/uL Sodium 145 (137-145) mmol/L Potassium 4.3 (3.5-5.1) mmol/L Chloride 114 H (98-107) mmol/L Carbon Dioxide 24 (22-30) mmol/L Anion Gap 7 mmol/L BUN 17 (7-17) mg/dL Creatinine 0.62 (0.52-1.04) mg/dL Est GFR (MDRD) Af Amer >60 (>60 ml/min/1.73 sqM) Est GFR (MDRD) Non-Af >60 (>60 ml/min/1.73 sqM) Glucose 83 (74-99) mg/dL Calcium 9.4 (8.4-10.2) mg/dL Total Bilirubin 0.7 (0.2-1.3) mg/dL AST 28 (14-36) U/L ALT 31 (9-52) U/L Alkaline Phosphatase 26 L (38-126) U/L Total Protein 7.4 (6.3-8.2) g/dL Albumin 4.2 (3.5-5.0) g/dL Amylase 53 (30-110) U/L Lipase 45 (23-300) U/L Urine Color Dark Yellow Urine Appearance Clear (Clear) Urine pH 6.0 (5.0-8.0) Ur Specific [place] 1.022 (1.001-1.035) Urine Protein Negative (Negative) Urine Glucose (UA) Negative (Negative) Urine Ketones Negative (Negative) Urine Blood Negative (Negative) Urine Nitrite Negative (Negative) Urine Bilirubin Negative (Negative) Urine Urobilinogen 2.0 (<2.0) mg/dL Ur Leukocyte Esterase Negative (Negative) Disposition Clinical Impression: Left flank pain, Back pain Disposition: HOME SELF-CARE Condition: Stable Instructions: Back Pain (ED), Flank Pain (ED) Additional Instructions: Please return to the Emergency Department if symptoms worsen or any other concerns. Prescriptions: Cyclobenzaprine [Flexeril] 10 mg PO TID PRN #15 tab PRN Reason: Muscle Spasm Hydrocodone/Acetaminophen [Clyde 5-325] 1 tab PO Q6HR PRN #20 tab PRN Reason: Pain Referrals: None,Stated [Primary Care Provider] - 1-2 days Time of Disposition: 18:39
--- NOTE | 2016-08-16 17:46 | XR ---
EXAMINATION TYPE: XR KUB DATE OF EXAM: 08/16/2016 COMPARISON: 05/13/2016 HISTORY: Abdominal pain TECHNIQUE: 2 views FINDINGS: There is no sign of intestinal obstruction or pneumoperitoneum. Fecal pattern is normal. [place] ng bases are clear. There are no pathologic calcifications over the kidneys. IMPRESSION: Nonacute abdomen. No change.
[2016-08-16] MEDS ORDERED: KETOROLAC 30 MG/ML 1 ML VIAL IVP STA (18:08)
[2016-08-16 18:14] LABS: ALT 31 U/L (9-52); AST 28 U/L (14-36); Alkaline Phosphatase 26 U/L (38-126); Amylase 53 U/L (30-110); Anion Gap 7 mmol/L; Blood Urea Nitrogen 17 mg/dL (7-17); Calcium 9.4 mg/dL (8.4-10.2); Carbon Dioxide 24 mmol/L (22-30); Chloride 114 mmol/L (98-107); Glucose 83 mg/dL (74-99); Non-African American GFR(MDRD) >60 (>60 ml/min/1.73 sqM); Potassium 4.3 mmol/L (3.5-5.1); Sodium 145 mmol/L (137-145); Total Bilirubin 0.7 mg/dL (0.2-1.3); Total Protein 7.4 g/dL (6.3-8.2)
[2016-08-16 18:50] VITALS: BP 103/55; PULSE 84; TEMP 97.5
== END 2016-08-16 18:50 | disposition home or self-care (01) ==
LOC: EC 16:21
DX: R10.9 Unspecified abdominal pain (principal); M54.9 Dorsalgia, unspecified; R11.0 Nausea; I10 Essential (primary) hypertension; F41.0 Panic disorder [episodic paroxysmal anxiety]; F32.9 Major depressive disorder, single episode, unspecified; F17.200 Nicotine dependence, unspecified, uncomplicated; Z79.899 Other long term (current) drug therapy; Z91.040 Latex allergy status; Z91.048 Other nonmedicinal substance allergy status; Z87.442 Personal history of urinary calculi; Z98.84 Bariatric surgery status
CPT/HCPCS: 36415; 80053; 82150; 83690; 85025; 81003; 74000; 99284; 96374; 96361; J1885

== ENCOUNTER → 2016-10-27 | Outpatient (CLI) | payer OTHER ==
--- NOTE | 2016-10-27 16:38 | CT ---
EXAMINATION TYPE: CT abdomen pelvis wo con DATE OF EXAM: 10/27/2016 COMPARISON: NONE INDICATION: Left sided flank pain, hematuria DLP: 1050 mGycm, Automated exposure control for dose reduction was used. CONTRAST: None TECHNIQUE: Axial images were obtained from above the diaphragm to the pubic rami in the axial plane a t 5 mm thick sections. Reconstructed images are reviewed on the computer in the coronal plane. FINDINGS: Limited CT sections are obtained the lung bases. The lung bases are clear. Small hiatal hernia is p resent. CT ABDOMEN: Postsurgical changes are within the stomach. Liver: Normal Spleen: Normal Pancreas: Normal Adrenal glands: The adrenal glands are normal. Gallbladder: Normal Kidneys: No masses are evident. No hydronephrosis is present. No cysts are present. There are 2 sm all calcifications in the left kidney is larger measuring 0.7 cm smaller posterior is no hydronephros is right. Aorta: Vascular calcification is within the aorta. Inferior vena cava: Normal. CT PELVIS: Loops of bowel within the abdomen and pelvis are normal. Study is performed without oral contrast limiting evaluation. Scattered periventricular sigmoid colon. Appendix: Normal as visualized. Urinary bladder: Normal. Genitourinary structures: Uterus and adnexal regions are clear. Osseous structures: No suspicious lytic or sclerotic lesions. IMPRESSIONS: 1. Nonobstructing left renal stones. 2. Sigmoid diverticulosis without acute diverticulitis.
== END | disposition home or self-care (01) ==
LOC: RADCTMAIN 14:55
PROVIDERS: ATTEND Family Medicine
DX: N20.0 Calculus of kidney (principal); K57.30 Diverticulosis of large intestine without perforation or abscess without bleeding; R30.0 Dysuria
CPT/HCPCS: 74176

== ENCOUNTER → 2016-10-28 | Outpatient (CLI) | payer OTHER ==
--- NOTE | 2016-10-28 11:16 | USB ---
EXAMINATION TYPE: US breast limited LT DATE OF EXAM: 10/28/2016 COMPARISON: Mammogram performed the same day. CLINICAL HISTORY: R92.8 abn mamm. Palpable abnormality. Targeted ultrasound was performed of the left breast in the quadrant of the palpable abnormality from the 5:00 to the 9:00 positions including the retroareolar position. No sonographic or cystic masses seen. No suspicious sonographic finding. IMPRESSION: BI-RADS 1- No sonographic evidence of malignancy. Annual screening mammography is recomm ended. Clinical management is recommended for the palpable abnormality.
--- NOTE | 2016-10-29 07:18 | MM ---
Reason for exam: clinical finding. History: Family history of breast cancer in paternal grandmother at age 40. Indicated problem(s): lump or thickening in the left breast. Physical Findings: Nurse did not find any significant physical abnormalities on exam. MG 3D Diag Mammo W/Cad MARQUES Bilateral CC and MLO view(s) were taken. The breast tissue is heterogeneously dense. This may lower the sensitivity of mammography. These results were verbally communicated with the patient and result sheet given to the patient on 10/28/16. ASSESSMENT: Incomplete: need additional imaging evaluation, BI-RAD 0 RECOMMENDATION: Ultrasound of the left breast. (palpable quadrant) Manage patient on a clinical basis.
== END | disposition home or self-care (01) ==
LOC: RADMAMWWP 09:56
PROVIDERS: ATTEND Family Medicine
DX: R92.8 Other abnormal and inconclusive findings on diagnostic imaging of breast (principal); N63 Unspecified lump in breast
CPT/HCPCS: 76642; G0204; G0279

== ENCOUNTER → 2016-12-15 | Outpatient (CLI) | payer OTHER ==
--- NOTE | 2016-12-15 20:29 | MR ---
EXAMINATION TYPE: MR cervical spine wo/w con DATE OF EXAM: 12/15/2016 5:55 PM COMPARISON: NONE HISTORY: SPINAL INSTABILITIES CERVICOTHORACIC, PAIN, HX OF CSP SURGERY CONTRAST: The patient was injected with 10 mL intravenous Gadavist gadolinium contrast. Multiplanar MultiSpin echo imaging of the cervical spine was performed. C2-C3: No evidence for degenerative disc disease. No disc bulge/herniation or protrusion. No Canal stenosis. Foramina are patent bilaterally. C3-C4: No evidence for degenerative disc disease. No disc bulge/herniation or protrusion. No Canal stenosis. Foramina are patent bilaterally. C4-C5: No evidence for degenerative disc disease. No disc bulge/herniation or protrusion. No Canal stenosis. Foramina are patent bilaterally. C5-C6: Postoperative changes of ACDF. Anterior fixation plate in place. Intervertebral body spacer. M ild hypertrophic change seen posteriorly with mild effacement ventral thecal sac. No evidence for rec urrent disc herniation or central stenosis. Degenerative changes uncovertebral joints with right fora zak encroachment. C6-C7: Moderate disc desiccation. Extruded left paracentral disc herniation. Disc material is seen po sterior to the superior endplate of C7. There is ventral CORD contact. Mild increased signal within t he cervical spinal cord at this level may reflect compressive myelopathy. Mild bilateral foraminal en croachment. C7-T1: No evidence for degenerative disc disease. No disc bulge/herniation or protrusion. No Canal stenosis. Foramina are patent bilaterally. No cervical spine fracture. There is normal alignment. Cervical spinal cord is of normal signal. C raniovertebral junction relationships are within normal limits. No pathologic enhancement. IMPRESSION: 1. Extruded disc herniation at C6-7 paracentral and to the left. 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 2. Postoperative changes at C5-6 as discussed. Posterior hypertrophic change effaces the ventral thec al sac without central stenosis or cord contact. See above.
== END ==
LOC: RADMRIMAIN 17:14
PROVIDERS: ATTEND Physician Assistant
DX: M50.223 Other cervical disc displacement at C6-C7 level (principal)
CPT/HCPCS: 72156; A9581

== ENCOUNTER 2016-12-19 10:24 | Emergency (ER) | payer OTHER ==
--- NOTE | 2016-12-19 11:42 | ED ---
General Adult HPI - General Chief complaint: Allergic Reaction Stated complaint: Allergic Reaction Time Seen by Provider: 12/19/16 10:29 Source: patient, EMS, RN notes reviewed Mode of arrival: EMS Limitations: no limitations - History of Present Illness Initial comments: Chief complaint history of present illness a 41-year-old female who was bit by a bee on her right hand. She was driving to the emergency room after giving herself her EpiPen. But didn't feel well with issues of difficulty breathing. EMS was called. EMS reports they administered epinephrine, Solu-Medrol and Benadryl. Patient reports she is feeling better. is being observed. - Related Data Home Medications Medication Instructions Recorded Confirmed Fexofenadine HCl [Shoshana Allergy] 180 mg PO DAILY 07/19/14 08/16/16 Omeprazole [PriLOSEC] 20 mg PO AC-BRKFST 07/19/14 08/16/16 Simvastatin [Zocor] 40 mg PO QAM 07/19/14 08/16/16 Venlafaxine HCl ER [Effexor XR] 150 mg PO DAILY 07/19/14 08/16/16 Albuterol Sulfate [Proair Hfa] 2 puff INHALATION RT-QID PRN 02/17/16 08/16/16 Ascorbic Acid [Vitamin C] 1,000 mg PO DAILY 02/17/16 08/16/16 Vitamin B Complex 1 cap PO DAILY 02/17/16 08/16/16 Calcium Citrate 1200mg+Vitamin D 1 tab PO DAILY 04/13/16 08/16/16 Magnesium Gluconate [Magonate] 500 mg PO DAILY 04/13/16 08/16/16 Multivit-Min/Iron/Folic Acid/K 1 cap PO DAILY 04/13/16 08/16/16 [Women's Multivatimin] Fish Oil/Dha/Epa [Fish Oil 1,200 1 cap PO DAILY 05/13/16 08/16/16 mg Fish Oil] Fluticasone Nasal Sax[place] [Flonase 2 spr EA NOSTRIL DAILY PRN 08/16/16 08/16/16 Nasal Saxe] Potassium 99 mg PO DAILY 08/16/16 08/16/16 Previous Rx's Medication Instructions Recorded Cyclobenzaprine [Flexeril] 10 mg PO TID PRN #15 tab 08/16/16 Hydrocodone/Acetaminophen [[place] 1 tab PO Q6HR PRN #20 tab 08/16/16 5-325] EPINEPHrine [Epipen 2-Nikhil] 0.3 mg IJ ONCE PRN #1 auto.injct 12/19/16 EPINEPHrine [Epipen 2-Nikhil] 0.3 mg IJ ONCE PRN #1 auto.injct 12/19/16 predniSONE 20 mg PO DAILY #3 tab 12/19/16 Allergies Allergy/AdvReac Type Severity Reaction Status Date / Time latex Allergy Unknown Rash/Hives Verified 12/19/16 10:39 animal dander Allergy Unknown Verified 12/19/16 10:39 bee venom protein (honey bee) Allergy Swelling Verified 12/19/16 10:39 Review of Systems ROS Statement: Those systems with pertinent positive or pertinent negative responses have been documented in the HPI. Review of systems no headache or visual acuity changes denies any wheezing or shortness of breath. She has discomfort and swelling locally where she was bit by a bee on the ulnar aspect of her right hand. Ice packs and then applied. No nausea no vomiting no neuro deficits. All systems are reviewed. Past medical problems asthma, the patient was heavier she had diabetes but after the surgery she no longer has diabetes. Also history of hypertension. Patient's surgeries include bariatric surgery asleep. She had followed by tubal ligation. The patient's surgeries also include fusion of C5 and C6. Patient has family history of colon cancer. Patient was reminded that she to needs colonoscopies this will be set up with her family doctor. Patient voices understanding. Patient has ALLERGIES to latex, animal dander and bees. She does smoke strongly encouraged to stop. Denies alcohol use. ROS Other: All systems not noted in ROS Statement are negative. Past Medical History Past Medical History: Asthma, Diabetes Mellitus Additional Past Medical History / Comment(s): PAST HX OF HTN, DIABETES -NO PROBLEM NOW-CHECKS SELF DAILY BUT TAKES NO MEDS., VARICOSE VEINS, SLEEP APNEA- DOES NOT USE MACHINE, CHRONIC BACK PAIN, RIGHT ROTATOR CUFF TEAR WITH LIMITED R.O.M., RIGGS ON RIGHT ARM, HX OF MULTIPLE KIDNEY INFECTIONS.INTERMITENT PROBLEM SWALLOWING FOODS History of Any Multi-Drug Resistant Organisms: None Reported Past Surgical History: Bariatric Surgery, Section, Tubal Ligation Additional Past Surgical History / Comment(s): X3, GASTRIC SLEEVE ( 2011), OVARY REMOVED., URETERAL STENT.PANNICULECTOMY with 2 kurtis drains Past Anesthesia/Blood Transfusion Reactions: No Reported Reaction Past Psychological History: Anxiety, Depression, Panic Disorder Smoking Status: Current every day smoker Past Alcohol Use History: Occasional Past Drug Use History: Marijuana General Exam - General Exam Comments Initial Comments: General: The patient is awake and alert, patient has a bee sting right hand. And was suffering ALLERGIC reaction when she called EMS after giving herself an appendectomy shot. Vital signs ROM throughout emergency room 97.9 temperature, pulse 76 respiratory rate 20 pulse ox 99% room air blood pressure 163/79. Eye: Pupils are equal, round and reactive to light, extra-ocular movements are intact ; there is normal conjunctiva bilaterally. No signs of icterus. Ears, nose, mouth and throat: There are moist mucous membranes and no oral lesions. Neck: The neck is supple, chronic neck pain from previous neck surgery and a CT 7 disc rupture. Cardiovascular: There is a regular rate and rhythm. No murmur, rub or gallop is appreciated. Respiratory: Lungs are clear to auscultation, respirations are non-labored, breath sounds are equal. No wheezes, stridor, rales, or rhonchi. Gastrointestinal: Soft, non-distended, non-tender abdomen without masses or organomegaly noted. There is no rebound or guarding present. No CVA tenderness. Bowel sounds are unremarkable. Back: There is no tenderness to palpation in the midline. There is no obvious deformity. No rashes noted. Musculoskeletal: Normal ROM, no tenderness, There is no pedal edema. There is no calf tenderness or swelling. Sensation intact. Pulses equal bilaterally 2+. Neurological: No neuro deficits. Skin: Localized swelling where she received a bee sting right hand otherwise no hives. Eyes applied this area. Limitations: no limitations Course Vital Signs 12/19/16 10:34 Temperature 97.9 F Pulse Rate 76 Respiratory 20 Rate Blood Pressure 163/79 O2 Sat by Pulse 99 Oximetry Medical Decision Making - Medical Decision Making The patient's been observed in the emergency room. Reports she is feeling much better. Walked herself to the bathroom urinating without difficulty. No difficulty breathing no hives. Patient is tired because of the IV Benadryl. The plant this size for the patient to be discharged home a new prescription for epi pens has been written. She was told this up immediately. Also to continue with Benadryl 25 mg 3 times daily for the next 2 days. Also prednisone 20 mg daily for the next 2 days. Patient advised return emergency room if she has any changes or difficulty breathing and again strongly encouraged to stop smoking. Disposition Clinical Impression: Systemic reaction to hymenoptera Disposition: HOME SELF-CARE Condition: Fair Instructions: Anaphylaxis (ED) Additional Instructions: Get your new EpiPen refilled immediately. Continue with ice on the area of the bee sting. Continue with Benadryl 25 mg 3 times daily for the next 2 days. Continue with prednisone 20 mg for the next 2 days. Return emergency room if having difficulty. Stop smoking. Prescriptions: EPINEPHrine [Epipen 2-Nikhil] 0.3 mg IJ ONCE PRN #1 auto.injct PRN Reason: Use as directed EPINEPHrine [Epipen 2-Nikhil] 0.3 mg IJ ONCE PRN #1 auto.injct PRN Reason: As directed predniSONE 20 mg PO DAILY #3 tab Referrals: Ludwin Silveira DO [Primary Care Provider] - 1-2 days Time of Disposition: 11:42
[2016-12-19 11:49] VITALS: BP 140/72; PULSE 86; RESP 17; TEMP 97.8
== END 2016-12-19 11:53 | disposition home or self-care (01) ==
LOC: EC 10:24
DX: T63.441A Toxic effect of venom of bees, accidental (unintentional), initial encounter (principal); I10 Essential (primary) hypertension; F17.200 Nicotine dependence, unspecified, uncomplicated; Z91.030 Bee allergy status; Z91.040 Latex allergy status; Z91.09 Other allergy status, other than to drugs and biological substances; Z79.899 Other long term (current) drug therapy
CPT/HCPCS: 99284

== ENCOUNTER → 2017-05-04 | Outpatient (CLI) | payer OTHER ==
--- NOTE | 2017-05-04 22:00 | MR ---
EXAMINATION TYPE: MR shoulder LT wo con DATE OF EXAM: 05/04/2017 COMPARISON: NONE HISTORY: Constant Left shoulder pain gotten worse since 2008 TECHNIQUE: Multiplanar, multisequence imaging of the left shoulder is performed without contrast. FINDINGS: Rotator Cuff: Intact. No obvious perforation is evident. No fluid in the subacromial bursa or subdelt oid bursa is evident. Suspicious signal transversing the rotator cuff is not identified. Acromioclavicular Joint: Some hypertrophy. Significant hours impingement is not evident. Glenohumeral Joint: Intact Labrum: The labrum appears grossly intact given limitation of non-arthrogram study. Biceps Tendon: The long head of the biceps tendon appears to lie anterior to the tuberosity and not w ithin the bicipital groove. There is moderate fluid adjacent. Correlate for dislocated biceps tendon. Bone marrow signal: No focal abnormal marrow signal is appreciated. Other: Minimal joint effusion could be considered. IMPRESSION: 1. There is a suggestion of subluxation of the long head biceps tendon anterior to the bicipital groo ve, dislocated from its normal location. Correlate with location of the patient's pain. 2. Very minimal joint effusion may be present. 3. No suspicious rotator cuff tear or perforation identified
== END | disposition home or self-care (01) ==
LOC: RADMRIMAIN 19:18
PROVIDERS: ATTEND Family Medicine
DX: M25.512 Pain in left shoulder (principal)

== ENCOUNTER → 2017-06-07 | Outpatient (CLI) | payer OTHER ==
--- NOTE | 2017-06-07 14:33 | XR ---
EXAMINATION TYPE: XR chest 2V DATE OF EXAM: 06/07/2017 COMPARISON: None HISTORY: 42-year-old female preoperative assessment, smoker TECHNIQUE: Frontal and lateral views FINDINGS: Large body habitus causing underpenetration especially of the lung bases. ACDF hardware. Heart normal size. Aorta and pulmonary vasculature within normal limits. Strandy atelectasis in the lower lungs. No consolidation or pleural effusion. Moderate endplate spondylosis mid to lower thoracic spine. IMPRESSION: No acute cardiopulmonary process.
== END | disposition home or self-care (01) ==
LOC: RADXRYALE 14:09
PROVIDERS: ATTEND Physician Assistant Medical
DX: Z01.811 Encounter for preprocedural respiratory examination (principal); F17.200 Nicotine dependence, unspecified, uncomplicated
CPT/HCPCS: 71046

== ENCOUNTER 2017-06-30 18:13 | Emergency (ER) | payer OTHER ==
[2017-06-30 18:34] VITALS: TEMP 98.9
[2017-06-30] MEDS ORDERED: SODIUM CHLORIDE 0.9% 500 ML IV ONE (20:02)
[2017-06-30] MEDS ORDERED: KETOROLAC 30 MG/ML 1 ML VIAL IVP STA (20:02)
--- NOTE | 2017-06-30 20:10 | ED ---
Skin/Abscess/FB HPI - General Chief complaint: Skin/Abscess/Foreign Body Stated complaint: post op open incision and swelling Time Seen by Provider: 06/30/17 19:44 Source: patient Mode of arrival: ambulatory Limitations: no limitations - History of Present Illness Initial comments: 42-year-old female patient presents to the emergency department today for evaluation of increased right shoulder pain and drainage from her incision sites after a rotator cuff repair. Patient states that she underwent surgery approximate one week ago with Dr. Dunaway at [facility]. Patient states that she had a large amount of swelling to the shoulder and this morning started to have drainage from 2 incisions. She states that she squeezed out a large amount of what appeared to be pus. Patient denies any fever or chills. States that her home pain medications are not helping her. States that she is taking Meldrim and Percocet. Patient denies any recent rash, shortness breath, chest pain, abdominal pain, nausea, vomiting, diarrhea, constipation, back pain, numbness, tingling, dizziness, weakness, hematuria, dysuria, urinary urgency, urinary frequency, headache, visual changes, or any other complaints. - Related Data Home Medications Medication Instructions Recorded Confirmed Omeprazole [PriLOSEC] 20 mg PO AC-BRKFST 07/19/14 06/30/17 Simvastatin [Zocor] 40 mg PO QAM 07/19/14 06/30/17 Albuterol Sulfate [Proair Hfa] 2 puff INHALATION RT-QID PRN 02/17/16 06/30/17 Ascorbic Acid [Vitamin C] 1,000 mg PO DAILY 02/17/16 06/30/17 Vitamin B Complex 1 cap PO DAILY 02/17/16 06/30/17 Calcium Citrate 1200mg+Vitamin D 1 tab PO DAILY 04/13/16 06/30/17 Magnesium Gluconate [Magonate] 500 mg PO DAILY 04/13/16 06/30/17 Multivit-Min/Iron/Folic Acid/K 1 cap PO DAILY 04/13/16 06/30/17 [Women's Multivatimin] Fish Oil/Dha/Epa [Fish Oil 1,200 1 cap PO DAILY 05/13/16 06/30/17 mg Fish Oil] Fluticasone Nasal [place] [Flonase 2 spr EA NOSTRIL DAILY PRN 08/16/16 06/30/17 Nasal [place]] Potassium 99 mg PO DAILY 08/16/16 06/30/17 Celecoxib [CeleBREX] 200 mg PO BID PRN 06/30/17 06/30/17 EPINEPHrine [Epipen 2-Nikhil] 0.3 mg IJ ONCE PRN 06/30/17 06/30/17 Gabapentin 800 mg PO BID 06/30/17 06/30/17 Loratadine [Claritin] 10 mg PO DAILY 06/30/17 06/30/17 Methocarbamol [Robaxin] 1,000 mg PO Q6H PRN 06/30/17 06/30/17 Venlafaxine HCl [Effexor XR] 225 mg PO DAILY 06/30/17 06/30/17 oxyCODONE-APAP 10-325MG [Percocet 1 tab PO QID PRN 06/30/17 06/30/17 10-325 mg] Allergies Allergy/AdvReac Type Severity Reaction Status Date / Time latex Allergy Unknown Rash/Hives Verified 06/30/17 20:27 animal dander Allergy Unknown Verified 06/30/17 20:27 bee venom protein (honey bee) Allergy Swelling Verified 06/30/17 20:27 Review of Systems ROS Statement: Those systems with pertinent positive or pertinent negative responses have been documented in the HPI. ROS Other: All systems not noted in ROS Statement are negative. Past Medical History Past Medical History: Asthma, Diabetes Mellitus Additional Past Medical History / Comment(s): PAST HX OF HTN, DIABETES -NO PROBLEM NOW-CHECKS SELF DAILY BUT TAKES NO MEDS., VARICOSE VEINS, SLEEP APNEA- DOES NOT USE MACHINE, CHRONIC BACK PAIN, RIGHT ROTATOR CUFF TEAR WITH LIMITED R.O.M., RIGGS ON RIGHT ARM, HX OF MULTIPLE KIDNEY INFECTIONS.INTERMITENT PROBLEM SWALLOWING FOODS History of Any Multi-Drug Resistant Organisms: None Reported Past Surgical History: Bariatric Surgery, Section, Orthopedic Surgery, Tubal Ligation Additional Past Surgical History / Comment(s): X3, GASTRIC SLEEVE ( 2011), OVARY REMOVED., URETERAL STENT.PANNICULECTOMY with 2 kurtis drains rt shoulder Past Anesthesia/Blood Transfusion Reactions: No Reported Reaction Past Psychological History: Anxiety, Depression, Panic Disorder Smoking Status: Current every day smoker Past Alcohol Use History: Occasional Past Drug Use History: Marijuana General Exam Limitations: no limitations General appearance: alert, in no apparent distress, other (This is a well- developed, obese adult female patient in no acute distress. Vital signs upon presentation are temperature 98.9F, pulse 88, respirations 20, blood pressure 161/99, pulse ox 97% on room air.) Eye exam: Present: normal appearance, PERRL, EOMI. Absent: scleral icterus, conjunctival injection, periorbital swelling ENT exam: Present: normal exam, normal oropharynx, mucous membranes moist Respiratory exam: Present: normal lung sounds bilaterally. Absent: respiratory distress, wheezes, rales, rhonchi, stridor Cardiovascular Exam: Present: regular rate, normal rhythm, normal heart sounds. Absent: systolic murmur, diastolic murmur, rubs, gallop, clicks Extremities exam: Present: full ROM, normal capillary refill, other (Patient has 2 open incisions to the right anterior shoulder. There is no surrounding erythema. Temperature is uniform. There is drainage of serosanguineous fluid.) . Absent: normal inspection, tenderness, pedal edema, joint swelling, calf tenderness Neurological exam: Present: oriented X3, CN II-XII intact. Absent: alert ( Drowsy) Psychiatric exam: Present: normal affect, normal mood Skin exam: Present: warm, dry, intact, normal color. Absent: rash Course Vital Signs 06/30/17 06/30/17 18:31 21:40 Temperature 98.9 F Pulse Rate 88 85 Respiratory 20 16 Rate Blood Pressure 161/99 158/99 O2 Sat by Pulse 97 98 Oximetry Medical Decision Making - Medical Decision Making 42-year-old female patient presents to the emergency department today for evaluation of increased right shoulder pain and drainage from her incision sites. Physical examination does reveal multiple arthroscopic incision sites to the right shoulder. 2 of these incisions are open and draining serosanguineous fluid. Patient does have limited range of motion of the right shoulder due to increased pain with movement. Labs reviewed and a white blood cell count was within normal range. Patient is afebrile. Temperature to the right shoulder joint is uniform. I did discuss to the patient a possibility of an early infection however does not seem to be so at this time. We will culture the fluid and have her follow-up with her operations support specialist. Patient does have an appointment with Dr. Dunaway on Wednesday. She is urged to keep this appointment. Return parameters discussed in detail. She verbalizes understanding and agrees with this plan. - Lab Data Result diagrams: 06/30/17 20:12 06/30/17 20:12 Lab Results 06/30/17 06/30/17 Range/Units 20:12 20:12 WBC 8.5 (3.8-10.6) k/uL RBC 4.09 (3.80-5.40) m/uL Hgb 12.8 (11.4-16.0) gm/dL Hct 37.5 (34.0-46.0) % MCV 91.6 (80.0-100.0) fL MCH 31.3 (25.0-35.0) pg MCHC 34.1 (31.0-37.0) g/dL RDW 12.4 (11.5-15.5) % Plt Count 310 (150-450) k/uL Neutrophils % 58 % Lymphocytes % 32 % Monocytes % 4 % Eosinophils % 3 % Basophils % 1 % Neutrophils # 4.9 (1.3-7.7) k/uL Lymphocytes # 2.8 (1.0-4.8) k/uL Monocytes # 0.4 (0-1.0) k/uL Eosinophils # 0.3 (0-0.7) k/uL Basophils # 0.0 (0-0.2) k/uL Sodium 140 (137-145) mmol/L Potassium 4.0 (3.5-5.1) mmol/L Chloride 103 (98-107) mmol/L Carbon Dioxide 24 (22-30) mmol/L Anion Gap 13 mmol/L BUN 23 H (7-17) mg/dL Creatinine 0.70 (0.52-1.04) mg/dL Est GFR (CKD-EPI)AfAm >90 (>60 ml/min/1.73 sqM) Est GFR (CKD-EPI)NonAf >90 (>60 ml/min/1.73 sqM) Glucose 112 H (74-99) mg/dL Calcium 9.3 (8.4-10.2) mg/dL Total Bilirubin 0.2 (0.2-1.3) mg/dL AST 18 (14-36) U/L ALT 11 (9-52) U/L Alkaline Phosphatase 31 L (38-126) U/L Total Protein 6.7 (6.3-8.2) g/dL Albumin 4.0 (3.5-5.0) g/dL Disposition Clinical Impression: Pain, postoperative, acute, Increased wound drainage Disposition: HOME SELF-CARE Condition: Good Instructions: Acute Wound Care (ED), Shoulder Pain (ED) Additional Instructions: Continue home medication as directed. Follow up with orthopedic physician as soon as possible. Return here immediately for any new, worsening, or concerning symptoms. Is patient prescribed a controlled substance at d/c from ED?: No Referrals: None,Stated [Primary Care Provider] - 1-2 days Time of Disposition: 21:17
[2017-06-30 20:22] LABS: Basophils % (A) 1 %; Eosinophils # (A) 0.3 k/uL (0-0.7); Eosinophils % (A) 3 %; HCT 37.5 % (34.0-46.0); HGB 12.8 gm/dL (11.4-16.0); Lymphocytes # (A) 2.8 k/uL (1.0-4.8); Lymphocytes % (A) 32 %; MCH 31.3 pg (25.0-35.0); MCHC 34.1 g/dL (31.0-37.0); MCV 91.6 fL (80.0-100.0); Mean Platelet Volume 7.1; Monocytes # (A) 0.4 k/uL (0-1.0); Monocytes % (A) 4 %; Neutrophils # (A) 4.9 k/uL (1.3-7.7); Neutrophils % (A) 58 %; Platelet Count 310 k/uL (150-450); RBC 4.09 m/uL (3.80-5.40); RDW 12.4 % (11.5-15.5); WBC 8.5 k/uL (3.8-10.6)
[2017-06-30 20:40] LABS: ALT 11 U/L (9-52); AST 18 U/L (14-36); Alkaline Phosphatase 31 U/L (38-126); Anion Gap 13 mmol/L; Blood Urea Nitrogen 23 mg/dL (7-17); Calcium 9.3 mg/dL (8.4-10.2); Carbon Dioxide 24 mmol/L (22-30); Chloride 103 mmol/L (98-107); Glucose 112 mg/dL (74-99); Sodium 140 mmol/L (137-145); Total Bilirubin 0.2 mg/dL (0.2-1.3); Total Protein 6.7 g/dL (6.3-8.2)
[2017-06-30 21:40] VITALS: BP 158/99; PULSE 85; RESP 16
== END 2017-06-30 21:40 | disposition home or self-care (01) ==
LOC: EC 18:13
DX: L76.82 Other postprocedural complications of skin and subcutaneous tissue (principal); G89.18 Other acute postprocedural pain; M25.511 Pain in right shoulder; I10 Essential (primary) hypertension; F32.9 Major depressive disorder, single episode, unspecified; F41.0 Panic disorder [episodic paroxysmal anxiety]; F17.200 Nicotine dependence, unspecified, uncomplicated; Z91.030 Bee allergy status; Z91.040 Latex allergy status; Z91.09 Other allergy status, other than to drugs and biological substances; Z79.899 Other long term (current) drug therapy
CPT/HCPCS: 99283; 96374; 96361; 36415; 80053; 85025; 87070; 87205; J1885

== ENCOUNTER 2017-11-30 19:36 | Emergency (ER) | payer BC, OTHER ==
[2017-11-30] MEDS ORDERED: FAMOTIDINE 20 MG/2 ML VIAL IV STA (19:42)
--- NOTE | 2017-11-30 19:46 | ED ---
Allergic Reaction HPI - General Stated complaint: Bee sting Time Seen by Provider: 11/30/17 19:36 Source: patient, EMS, RN notes reviewed Mode of arrival: EMS - History of Present Illness Initial Comments: This is a 42-year-old female history of bee sting ALLERGIES who was stung in the right hand the webspace between the thumb and the index finger by a bee just prior to admission. She gave herself an EpiPen shot in her right thigh she started feeling shaky and jittery EMS was called she was given additional medication IV and IM including Benadryl 25 mg IV as well as 25 mg IM and also 125 a slight Medrol. Patient states she has some tingling about her mouth no shortness breath fevers chills nausea vomiting sweats. Prior to this she was feeling well. She denies any difficulty swallowing or shortness of breath at this time she has had tingling to her right hand MD Complaint: allergic reaction - Related Data Home Medications Medication Instructions Recorded Confirmed Omeprazole [PriLOSEC] 20 mg PO AC-BRKFST 07/19/14 11/30/17 Simvastatin [Zocor] 40 mg PO DAILY 07/19/14 11/30/17 Albuterol Sulfate [Proair Hfa] 2 puff INHALATION RT-QID PRN 02/17/16 11/30/17 Ascorbic Acid [Vitamin C] 1,000 mg PO DAILY 02/17/16 11/30/17 Vitamin B Complex 1 cap PO DAILY 02/17/16 11/30/17 Calcium Citrate 1200mg+Vitamin D 1 tab PO DAILY 04/13/16 11/30/17 Magnesium Gluconate [Magonate] 500 mg PO DAILY 04/13/16 11/30/17 Multivit-Min/Iron/Folic Acid/K 1 cap PO DAILY 04/13/16 11/30/17 [Women's Multivatimin] Fish Oil/Dha/Epa [Fish Oil 1,200 1 cap PO DAILY 05/13/16 11/30/17 mg Fish Oil] EPINEPHrine [Epipen 2-Nikhil] 0.3 mg IM ONCE PRN 06/30/17 11/30/17 Loratadine [Claritin] 10 mg PO DAILY 06/30/17 11/30/17 Venlafaxine HCl [Effexor XR] 225 mg PO DAILY 06/30/17 11/30/17 Cider Vinegar [Apple Cider Vinegar] 900 mg PO DAILY 11/30/17 11/30/17 Ibuprofen [Motrin] 600 mg PO Q8HR PRN 11/30/17 11/30/17 Previous Rx's Medication Instructions Recorded EPINEPHrine [Epipen 2-Nikhil] 0.3 mg IJ ONCE #2 auto.injct 11/30/17 Allergies Allergy/AdvReac Type Severity Reaction Status Date / Time latex Allergy Unknown Rash/Hives Verified 11/30/17 19:56 animal dander Allergy Unknown Verified 11/30/17 19:56 bee venom protein (honey bee) Allergy Swelling Verified 11/30/17 19:56 Review of Systems ROS Statement: Those systems with pertinent positive or pertinent negative responses have been documented in the HPI. ROS Other: All systems not noted in ROS Statement are negative. Past Medical History Past Medical History: Asthma, Diabetes Mellitus Additional Past Medical History / Comment(s): PAST HX OF HTN, DIABETES -NO PROBLEM NOW-CHECKS SELF DAILY BUT TAKES NO MEDS., VARICOSE VEINS, SLEEP APNEA- DOES NOT USE MACHINE, CHRONIC BACK PAIN, RIGHT ROTATOR CUFF TEAR WITH LIMITED R.O.M., RIGGS ON RIGHT ARM, HX OF MULTIPLE KIDNEY INFECTIONS.INTERMITENT PROBLEM SWALLOWING FOODS History of Any Multi-Drug Resistant Organisms: None Reported Past Surgical History: Bariatric Surgery, Section, Orthopedic Surgery, Tubal Ligation Additional Past Surgical History / Comment(s): X3, GASTRIC SLEEVE ( 2011), OVARY REMOVED., URETERAL STENT.PANNICULECTOMY with 2 kurtis drains rt shoulder Past Anesthesia/Blood Transfusion Reactions: No Reported Reaction Past Psychological History: Anxiety, Depression, Panic Disorder Smoking Status: Current every day smoker Past Alcohol Use History: Occasional Past Drug Use History: Marijuana General Exam - General Exam Comments Initial Comments: This is a well-developed well-nourished awake alert oriented 3 female General appearance: alert, anxious Head exam: Present: atraumatic, normocephalic, normal inspection Eye exam: Present: normal appearance, PERRL, EOMI. Absent: scleral icterus, conjunctival injection, periorbital swelling ENT exam: Present: normal exam, mucous membranes moist Neck exam: Present: normal inspection, other (No stridor JVD or bruits). Absent : tenderness, meningismus, lymphadenopathy Respiratory exam: Present: normal lung sounds bilaterally. Absent: respiratory distress, wheezes, rales, rhonchi, stridor Cardiovascular Exam: Present: regular rate, normal rhythm, normal heart sounds. Absent: systolic murmur, diastolic murmur, rubs, gallop, clicks GI/Abdominal exam: Present: soft, normal bowel sounds. Absent: distended, tenderness, guarding, rebound, rigid Extremities exam: Present: full ROM, normal capillary refill, other ( Examination the right hand shows no evidence of any open wound at this time the sting site appears be clear no foreign body seen.). Absent: tenderness, pedal edema, joint swelling, calf tenderness Back exam: Present: normal inspection Neurological exam: Present: alert, oriented X3, CN II-XII intact Psychiatric exam: Present: normal affect, normal mood Skin exam: Present: warm, dry, intact, normal color. Absent: rash Course Vital Signs 11/30/17 19:46 Temperature 98.7 F Pulse Rate 79 Respiratory 18 Rate Blood Pressure 147/91 O2 Sat by Pulse 99 Oximetry Medical Decision Making - Medical Decision Making Reevaluation patient reveals that she feels much improved she has no symptoms at this time her hand feels better. She has no more EpiPen has a home she'll be given a prescription for a 2 pack. I did advise her to take the ring off of her index finger which she did. She will be discharged reevaluation reveals no stridor JVD or bruits lungs are clear with good aeration. Disposition Clinical Impression: Allergic reaction, Bee sting reaction Disposition: HOME SELF-CARE Condition: Good Instructions: Insect Bite or Sting (ED) Additional Instructions: [id number] Benadryl and Pepcid to be used as needed Benadryl 25 mg every 6 hours and Pepcid 20 mg every 12 hours, elevate right hand, ice 24-48 hours to the appropriate area for up to 10-15 minutes at a time Prescriptions: EPINEPHrine [Epipen 2-Nikhil] 0.3 mg IJ ONCE #2 auto.injct Is patient prescribed a controlled substance at d/c from ED?: No Referrals: Flaca Aguilar DO [Primary Care Provider] - 1-2 days
[2017-11-30 20:44] VITALS: BP 145/80; PULSE 83; RESP 17; TEMP 98.2
== END 2017-11-30 20:35 | disposition home or self-care (01) ==
LOC: EC 19:36
DX: T63.441A Toxic effect of venom of bees, accidental (unintentional), initial encounter (principal); J45.909 Unspecified asthma, uncomplicated; F41.0 Panic disorder [episodic paroxysmal anxiety]; F32.9 Major depressive disorder, single episode, unspecified; F17.200 Nicotine dependence, unspecified, uncomplicated; Z79.899 Other long term (current) drug therapy; Z91.040 Latex allergy status; Z91.030 Bee allergy status; Z91.09 Other allergy status, other than to drugs and biological substances
CPT/HCPCS: 96374; 99283

== ENCOUNTER 2017-12-26 03:53 | Observation (INO) | payer OTHER ==
--- NOTE | 2017-12-26 04:01 | ED ---
Abdominal Pain HPI - General Chief Complaint: Abdominal Pain Stated Complaint: Back pain Time Seen by Provider: 12/26/17 04:00 Source: patient Mode of arrival: wheelchair Limitations: no limitations - History of Present Illness Initial Comments: Reema is a obese 42-year-old female who presents the emergency department today for evaluation of right upper quadrant abdominal pain radiating to her back and her right shoulder. Patient reports pain began 2 days ago and has been persistent since that time. Pain is constant stabbing in nature. Pain radiates from the right upper quadrant to epigastrium into the right shoulder. Pain is worse with eating or palpation. Patient reports that over the past day she's eaten only crackers because anything else makes her pain worse. Patient reports the pain has become so severe she has had some nausea and one episode of nonbloody nonbilious vomiting in route to the hospital. Patient does report a history of kidney stones, however this is only ever been on the left side. Patient denies any hematuria flank pain or plain radiating into her groin. - Related Data Home Medications Medication Instructions Recorded Confirmed RX: Omeprazole [PriLOSEC] 20 mg PO AC-BRKFST 07/19/14 12/26/17 RX: Simvastatin [Zocor] 40 mg PO DAILY 07/19/14 12/26/17 RX: Albuterol Sulfate [Proair Hfa] 2 puff INHALATION RT-QID PRN 02/17/16 RX: Ascorbic Acid [Vitamin C] 1,000 mg PO DAILY 02/17/16 12/26/17 RX: Vitamin B Complex 1 cap PO DAILY 02/17/16 12/26/17 Calcium Citrate 1200mg+Vitamin D 1 tab PO DAILY 04/13/16 12/26/17 Magnesium Gluconate [Magonate] 500 mg PO DAILY 04/13/16 12/26/17 Multivit-Min/Iron/Folic Acid/K 1 cap PO DAILY 04/13/16 12/26/17 [Women's Multivatimin] Fish Oil/Dha/Epa [Fish Oil 1,200 1 cap PO DAILY 05/13/16 12/26/17 mg Fish Oil] EPINEPHrine [Epipen 2-Nikhil] 0.3 mg IM ONCE PRN 06/30/17 12/26/17 Loratadine [Claritin] 10 mg PO DAILY 06/30/17 12/26/17 Venlafaxine HCl [Effexor XR] 225 mg PO DAILY 06/30/17 12/26/17 Cider Vinegar [Apple Cider Vinegar] 900 mg PO DAILY 11/30/17 12/26/17 Ibuprofen [Motrin] 600 mg PO Q8HR PRN 11/30/17 12/26/17 Previous Rx's Medication Instructions Recorded EPINEPHrine [Epipen 2-Nikhil] 0.3 mg IJ ONCE #2 auto.injct 11/30/17 Allergies Allergy/AdvReac Type Severity Reaction Status Date / Time latex Allergy Unknown Rash/Hives Verified 11/30/17 19:56 animal dander Allergy Unknown Verified 11/30/17 19:56 bee venom protein (honey bee) Allergy Swelling Verified 11/30/17 19:56 Review of Systems ROS Statement: Those systems with pertinent positive or pertinent negative responses have been documented in the HPI. ROS Other: All systems not noted in ROS Statement are negative. Past Medical History Past Medical History: Asthma, Diabetes Mellitus Additional Past Medical History / Comment(s): PAST HX OF HTN, DIABETES -NO PROBLEM NOW-CHECKS SELF DAILY BUT TAKES NO MEDS., VARICOSE VEINS, SLEEP APNEA- DOES NOT USE MACHINE, CHRONIC BACK PAIN, RIGHT ROTATOR CUFF TEAR WITH LIMITED R.O.M., RIGGS ON RIGHT ARM, HX OF MULTIPLE KIDNEY INFECTIONS.INTERMITENT PROBLEM SWALLOWING FOODS History of Any Multi-Drug Resistant Organisms: None Reported Past Surgical History: Bariatric Surgery, Section, Orthopedic Surgery, Tubal Ligation Additional Past Surgical History / Comment(s): X3, GASTRIC SLEEVE ( 2011), OVARY REMOVED., URETERAL STENT.PANNICULECTOMY with 2 kurtis drains rt shoulder Past Anesthesia/Blood Transfusion Reactions: No Reported Reaction Past Psychological History: Anxiety, Depression, Panic Disorder Smoking Status: Current every day smoker Past Alcohol Use History: Occasional Past Drug Use History: Marijuana General Exam - General Exam Comments Initial Comments: Physical Exam GENERAL: Patient is well-developed and well-nourished. Patient lying on gurney, appears uncomfortable, Patient moderate distress HENT: Normocephalic, Atraumatic. EYES: PERRL, EOMI No scleral icterus PULMONARY: Unlabored respirations. No audible rales rhonchi or wheezing was noted. CARDIOVASCULAR: There is a regular rate and rhythm without any murmurs gallops or rubs. ABDOMEN: Soft, tenderness in the right upper quadrant and epigastrium Normal active bowel sounds SKIN: Skin is clear with no lesions or rashes and otherwise unremarkable. : Deferred NEUROLOGIC: Patient is alert and oriented x3. Moving all extremities spontaneously MUSCULOSKELETAL: Decreased range of motion right shoulder secondary to previous surgery PSYCHIATRIC: Normal psychiatric evaluation. Limitations: no limitations Limitations: no limitations Course Vital Signs 12/26/17 03:56 Temperature 97.9 F Pulse Rate 75 Respiratory 20 Rate Blood Pressure 151/91 O2 Sat by Pulse 98 Oximetry Medical Decision Making - Medical Decision Making Patient was seen and evaluated, history is obtained from the patient Labs and imaging were ordered Zofran and morphine and IV fluids ordered Labs with no significant abnormalities X-ray with no acute findings, considering the patient's surgical history who will obtain a computed tomography scan Computed tomography scan with evidence of an ileus Patient was reevaluated and computed tomography scan results were discussed. Patient is still writhing in pain. I discussed with the patient options for discharge home with supportive care versus admission to the hospital. Patient is not comfortable being discharged home in the discomfort she is experiencing. I will give the patient additional dose of pain medication and plan to place the patient in observation for further evaluation. - Lab Data Result diagrams: 12/26/17 03:20 12/26/17 03:20 Lab Results 12/26/17 12/26/17 12/26/17 Range/Units 03:20 03:20 05:42 WBC 9.1 (3.8-10.6) k/uL RBC 4.04 (3.80-5.40) m/uL Hgb 12.5 (11.4-16.0) gm/dL Hct 37.8 (34.0-46.0) % MCV 93.7 (80.0-100.0) fL MCH 30.9 (25.0-35.0) pg MCHC 33.0 (31.0-37.0) g/dL RDW 13.2 (11.5-15.5) % Plt Count 308 (150-450) k/uL Neutrophils % 63 % Lymphocytes % 29 % Monocytes % 4 % Eosinophils % 2 % Basophils % 0 % Neutrophils # 5.8 (1.3-7.7) k/uL Lymphocytes # 2.6 (1.0-4.8) k/uL Monocytes # 0.4 (0-1.0) k/uL Eosinophils # 0.2 (0-0.7) k/uL Basophils # 0.0 (0-0.2) k/uL Sodium 139 (137-145) mmol/L Potassium 4.3 (3.5-5.1) mmol/L Chloride 109 H (98-107) mmol/L Carbon Dioxide 26 (22-30) mmol/L Anion Gap 4 mmol/L BUN 13 (7-17) mg/dL Creatinine 0.65 (0.52-1.04) mg/dL Est GFR (CKD-EPI)AfAm >90 (>60 ml/min/1.73 sqM) Est GFR (CKD-EPI)NonAf >90 (>60 ml/min/1.73 sqM) Glucose 97 (74-99) mg/dL Calcium 9.5 (8.4-10.2) mg/dL Total Bilirubin 0.3 (0.2-1.3) mg/dL AST 17 (14-36) U/L ALT 26 (9-52) U/L Alkaline Phosphatase 25 L (38-126) U/L Total Protein 7.0 (6.3-8.2) g/dL Albumin 3.9 (3.5-5.0) g/dL Amylase 38 (30-110) U/L Lipase 36 (23-300) U/L Urine Color Urine Appearance (Clear) Urine pH (5.0-8.0) Ur Specific [place] (1.001-1.035) Urine Protein (Negative) Urine Glucose (UA) (Negative) Urine Ketones (Negative) Urine Blood (Negative) Urine Nitrite (Negative) Urine Bilirubin (Negative) Urine Urobilinogen (<2.0) mg/dL Ur Leukocyte Esterase (Negative) Urine HCG, Qual Not Detected (Not Detectd) 12/26/17 Range/Units 05:42 WBC (3.8-10.6) k/uL RBC (3.80-5.40) m/uL Hgb (11.4-16.0) gm/dL Hct (34.0-46.0) % MCV (80.0-100.0) fL MCH (25.0-35.0) pg MCHC (31.0-37.0) g/dL RDW (11.5-15.5) % Plt Count (150-450) k/uL Neutrophils % % Lymphocytes % % Monocytes % % Eosinophils % % Basophils % % Neutrophils # (1.3-7.7) k/uL Lymphocytes # (1.0-4.8) k/uL Monocytes # (0-1.0) k/uL Eosinophils # (0-0.7) k/uL Basophils # (0-0.2) k/uL Sodium (137-145) mmol/L Potassium (3.5-5.1) mmol/L Chloride (98-107) mmol/L Carbon Dioxide (22-30) mmol/L Anion Gap mmol/L BUN (7-17) mg/dL Creatinine (0.52-1.04) mg/dL Est GFR (CKD-EPI)AfAm (>60 ml/min/1.73 sqM) Est GFR (CKD-EPI)NonAf (>60 ml/min/1.73 sqM) Glucose (74-99) mg/dL Calcium (8.4-10.2) mg/dL Total Bilirubin (0.2-1.3) mg/dL AST (14-36) U/L ALT (9-52) U/L Alkaline Phosphatase (38-126) U/L Total Protein (6.3-8.2) g/dL Albumin (3.5-5.0) g/dL Amylase (30-110) U/L Lipase (23-300) U/L Urine Color Yellow Urine Appearance Clear (Clear) Urine pH 6.0 (5.0-8.0) Ur Specific [place] 1.036 H (1.001-1.035) Urine Protein Negative (Negative) Urine Glucose (UA) Negative (Negative) Urine Ketones Negative (Negative) Urine Blood Negative (Negative) Urine Nitrite Negative (Negative) Urine Bilirubin Negative (Negative) Urine Urobilinogen <2.0 (<2.0) mg/dL Ur Leukocyte Esterase Negative (Negative) Urine HCG, Qual (Not Detectd) Disposition Clinical Impression: Abdominal pain Disposition: ADMITTED IP TO THIS [facility] Instructions: Abdominal Pain (ED) Is patient prescribed a controlled substance at d/c from ED?: No Referrals: Flaca Aguilar DO [Primary Care Provider] - 1-2 days
[2017-12-26 04:37] LABS: Basophils % (A) 0 %; Eosinophils # (A) 0.2 k/uL (0-0.7); Eosinophils % (A) 2 %; HCT 37.8 % (34.0-46.0); HGB 12.5 gm/dL (11.4-16.0); Lymphocytes # (A) 2.6 k/uL (1.0-4.8); Lymphocytes % (A) 29 %; MCH 30.9 pg (25.0-35.0); MCV 93.7 fL (80.0-100.0); Mean Platelet Volume 7.2; Monocytes # (A) 0.4 k/uL (0-1.0); Monocytes % (A) 4 %; Neutrophils # (A) 5.8 k/uL (1.3-7.7); Neutrophils % (A) 63 %; Platelet Count 308 k/uL (150-450); RBC 4.04 m/uL (3.80-5.40); RDW 13.2 % (11.5-15.5); WBC 9.1 k/uL (3.8-10.6)
[2017-12-26] MEDS ORDERED: MORPHINE SULFATE 4 MG/ML SYRINGE IVP STA ×2 (04:38→06:19)
[2017-12-26] MEDS ORDERED: ONDANSETRON 4 MG/2 ML VIAL IVP STA (04:38)
[2017-12-26] MEDS ORDERED: SODIUM CHLORIDE 0.9% 1,000 ML IV ONE (04:38)
[2017-12-26 04:42] LABS: ALT 26 U/L (9-52); AST 17 U/L (14-36); Albumin 3.9 g/dL (3.5-5.0); Alkaline Phosphatase 25 U/L (38-126); Amylase 38 U/L (30-110); Anion Gap 4 mmol/L; Blood Urea Nitrogen 13 mg/dL (7-17); Calcium 9.5 mg/dL (8.4-10.2); Carbon Dioxide 26 mmol/L (22-30); Chloride 109 mmol/L (98-107); Glucose 97 mg/dL (74-99); Lipase 36 U/L (23-300); Potassium 4.3 mmol/L (3.5-5.1); Sodium 139 mmol/L (137-145); Total Bilirubin 0.3 mg/dL (0.2-1.3)
--- NOTE | 2017-12-26 05:11 | XR ---
EXAMINATION TYPE: XR KUB DATE OF EXAM: 12/26/2017 COMPARISON: 08/16/2016 HISTORY: Abdominal pain TECHNIQUE: 2 views upright FINDINGS: There is no sign of intestinal obstruction or pneumoperitoneum. Fecal pattern is normal. [place] ng bases are clear. There are no pathologic calcifications over the kidneys. IMPRESSION: Nonacute abdomen. No change.
--- NOTE | 2017-12-26 05:36 | CT ---
EXAMINATION TYPE: CT abdomen pelvis w con DATE OF EXAM: 12/26/2017 COMPARISON: 10/27/2016 HISTORY: Prior on synapse, RUQ pain, history of gastric sleeve CT DLP: 1397.60 mGycm Automated exposure control for dose reduction was used. TECHNIQUE: Helical acquisition of images was performed from the lung bases through the pelvis. CONTRAST: Performed without Oral Contrast and with IV Contrast, patient injected with 100 mL of Isovue 300. FINDINGS: Lung bases are clear. There is no pleural effusion. Heart size is normal. There is no pericardial eff usion. There is small hiatal hernia. There is bariatric surgery on the stomach. There are small densi ties in the dependent gallbladder that could be small gallstones. The bile ducts are not dilated. Perri er appears normal. Spleen appears normal. There is no pancreatic mass. There is no adrenal mass. There is mild bilateral perinephric stranding. There is no hydronephrosis. Ureters are not dilated. There is no retroperitoneal adenopathy. There is no mesenteric adenopathy or edema. Bladder distends smoothly. Uterus is anteverted. I see no pelvic mass. There is no free fluid in the pelvis. The appendix appears normal. There is mildly dilated terminal ileum without wall thic kening. This measures 2.5 cm. There are a few fluid-filled loops of small bowel in the mid abdomen. F ecal pattern overall is fairly normal. There are some diverticula in the descending colon and sigmoid colon. I see no sign of diverticulitis. There is no inguinal hernia. There are spondylotic changes i n the thoracic and lumbar spine. I see no compression fracture. The bony pelvis appears intact. IMPRESSION: PERINEPHRIC EDEMA COULD RELATE TO PREVIOUS EPISODE OF OBSTRUCTION. NO OBSTRUCTION SEEN ON TODAY'S EXA M. THERE IS CLEARING OF CALCULUS IN THE LEFT KIDNEY COMPARED TO OLD EXAM. SMALL BOWEL FLUID IS SUGGESTIVE OF MILD ILEUS. NO EVIDENCE OF A MECHANICAL OBSTRUCTION. SIGMOID DIVER TICULOSIS WITHOUT DIVERTICULITIS. NORMAL APPENDIX. THERE ARE PROBABLY SMALL GALLSTONES.
[2017-12-26 05:58] LABS: Appearance,Urine Clear (Clear); Bilirubin,Urine Negative (Negative); Blood,Urine Negative (Negative); Color,Urine Yellow; Glucose,Urine (UA) Negative (Negative); Ketones,Urine Negative (Negative); Leukocyte Esterase,Urine Negative (Negative); Nitrite,Urine Negative (Negative); Protein,Urine Negative (Negative); Specific Gravity,Urine 1.036 (1.001-1.035); Urobilinogen,Urine <2.0 mg/dL (<2.0)
[2017-12-26] MEDS ORDERED: ONDANSETRON 4 MG/2 ML VIAL IVP PRN (06:23)
[2017-12-26] MEDS ORDERED: NALOXONE 0.4 MG/ML 1 ML VIAL IV PRN (06:23)
[2017-12-26] MEDS ORDERED: ALBUTEROL NEBULIZED 2.5 MG/3 ML INHALATION PRN (06:24)
[2017-12-26] MEDS ORDERED: SODIUM CHLORIDE 0.9% 1,000 ML IV SCH (06:30)
[2017-12-26] MEDS ORDERED: PANTOPRAZOLE 40 MG TABLET PO SCH (07:30)
[2017-12-26 08:13] VITALS: BMI 39.9
[2017-12-26] MEDS ORDERED: KETOROLAC 30 MG/ML 1 ML VIAL IVP SCH (09:00)
[2017-12-26] MEDS ORDERED: VENLAFAXINE HCL ER 75 MG CAP PO SCH (09:00)
[2017-12-26 12:22] VITALS: BP 154/81; PULSE 76; RESP 16; TEMP 97.4
--- NOTE | 2017-12-26 17:08 | P.HPIM ---
History of Present Illness Patient left AMA before I can evaluate the patient Past Medical History Past Medical History: Asthma Additional Past Medical History / Comment(s): PAST HX OF HTN, DIABETES -NO PROBLEM NOW-CHECKS SELF DAILY BUT TAKES NO MEDS., VARICOSE VEINS, SLEEP APNEA- DOES NOT USE MACHINE, CHRONIC BACK PAIN, RIGHT ROTATOR CUFF TEAR WITH LIMITED R.O.M., RIGGS ON RIGHT ARM, HX OF MULTIPLE KIDNEY INFECTIONS.INTERMITENT PROBLEM SWALLOWING FOODS History of Any Multi-Drug Resistant Organisms: None Reported Past Surgical History: Bariatric Surgery, Section, Orthopedic Surgery, Tubal Ligation Additional Past Surgical History / Comment(s): X3, GASTRIC SLEEVE ( 2011), OVARY REMOVED., URETERAL STENT.PANNICULECTOMY with 2 kurtis drains rt shoulder Past Anesthesia/Blood Transfusion Reactions: No Reported Reaction Smoking Status: Current every day smoker Medications and Allergies Home Medications Medication Instructions Recorded Confirmed Type Omeprazole [PriLOSEC] 20 mg PO AC-BRKFST 07/19/14 12/26/17 History Simvastatin [Zocor] 40 mg PO DAILY 07/19/14 12/26/17 History Albuterol Sulfate [Proair Hfa] 2 puff INHALATION RT-QID PRN 02/17/16 12/26/17 History Ascorbic Acid [Vitamin C] 1,000 mg PO DAILY 02/17/16 12/26/17 History Vitamin B Complex 1 cap PO DAILY 02/17/16 12/26/17 History Calcium Citrate 1200mg+Vitamin D 1 tab PO DAILY 04/13/16 12/26/17 History Magnesium Gluconate [Magonate] 500 mg PO DAILY 04/13/16 12/26/17 History Multivit-Min/Iron/Folic Acid/K 1 cap PO DAILY 04/13/16 12/26/17 History [Women's Multivatimin] EPINEPHrine [Epipen 2-Nikhil] 0.3 mg IM ONCE PRN 06/30/17 12/26/17 History Loratadine [Claritin] 10 mg PO DAILY 06/30/17 12/26/17 History Venlafaxine HCl [Effexor XR] 225 mg PO DAILY 06/30/17 12/26/17 History Cider Vinegar [Apple Cider Vinegar] 900 mg PO DAILY 11/30/17 12/26/17 History Ibuprofen [Motrin] 600 mg PO Q8HR PRN 11/30/17 12/26/17 History Allergies Allergy/AdvReac Type Severity Reaction Status Date / Time latex Allergy Unknown Rash/Hives Verified 12/26/17 07:41 animal dander Allergy Unknown Verified 12/26/17 07:41 bee venom protein (honey bee) Allergy Swelling Verified 12/26/17 07:41 Physical Exam Vitals: Vital Signs Temp Pulse Pulse Resp BP BP Pulse Ox 12/26/17 12:00 97.4 F L 76 16 154/81 99 12/26/17 08:00 97.9 F 70 20 127/89 97 12/26/17 07:39 97.7 F 68 16 145/80 99 12/26/17 03:56 97.9 F 75 20 151/91 98 Intake and Output 12/26/17 12/26/17 12/26/17 06:59 14:59 22:59 Other: Voiding Method Toilet Weight 102.058 kg 98.9 kg Results CBC & Chem 7: 12/26/17 03:20 12/26/17 03:20 Labs: Abnormal Lab Results - Last 24 Hours (Table) 12/26/17 12/26/17 Range/Units 03:20 05:42 Chloride 109 H (98-107) mmol/L Alkaline Phosphatase 25 L (38-126) U/L Ur Specific [place] 1.036 H (1.001-1.035) Thrombosis Risk Factor Assmnt - Choose All That Apply Each Factor Represents 1 point: Medical pt on bed rest, Obesity (BMI >25), Varicose veins Each Risk Factor Represents 2 Points: Patient confined to bed Thrombosis Risk Factor Assessment Total Risk Factor Score: 5 Thrombosis Risk Factor Assessment Level: High Risk
--- NOTE | 2017-12-26 17:09 | P.DS ---
Providers Date of admission: 12/26/17 06:23 Attending physician: Carol Wilkinson Primary care physician: Flaca Jeff [facility] Course: Left AGAINST MEDICAL ADVICE Plan - Discharge Summary Discharge Rx Participant: No New Discharge Prescriptions: No Action Omeprazole [PriLOSEC] 20 mg PO AC-BRKFST Simvastatin [Zocor] 40 mg PO DAILY Albuterol Sulfate [Proair Hfa] 2 puff INHALATION RT-QID PRN PRN Reason: Shortness Of Breath Vitamin B Complex 1 cap PO DAILY Ascorbic Acid [Vitamin C] 1,000 mg PO DAILY Multivit-Min/Iron/Folic Acid/K [Women's Multivatimin] 1 cap PO DAILY Calcium Citrate 1200mg+Vitamin D 1 tab PO DAILY Magnesium Gluconate [Magonate] 500 mg PO DAILY Loratadine [Claritin] 10 mg PO DAILY EPINEPHrine [Epipen 2-Nikhil] 0.3 mg IM ONCE PRN PRN Reason: Anaphylaxis Venlafaxine HCl [Effexor XR] 225 mg PO DAILY Ibuprofen [Motrin] 600 mg PO Q8HR PRN PRN Reason: Pain Cider Vinegar [Apple Cider Vinegar] 900 mg PO DAILY Discharge Medication List Omeprazole [PriLOSEC] 20 mg PO AC-BRKFST 07/19/14 [History] Simvastatin [Zocor] 40 mg PO DAILY 07/19/14 [History] Albuterol Sulfate [Proair Hfa] 2 puff INHALATION RT-QID PRN 02/17/16 [History] Ascorbic Acid [Vitamin C] 1,000 mg PO DAILY 02/17/16 [History] Vitamin B Complex 1 cap PO DAILY 02/17/16 [History] Calcium Citrate 1200mg+Vitamin D 1 tab PO DAILY 04/13/16 [History] Magnesium Gluconate [Magonate] 500 mg PO DAILY 04/13/16 [History] Multivit-Min/Iron/Folic Acid/K [Women's Multivatimin] 1 cap PO DAILY 04/13/16 [ History] EPINEPHrine [Epipen 2-Nikhil] 0.3 mg IM ONCE PRN 06/30/17 [History] Loratadine [Claritin] 10 mg PO DAILY 06/30/17 [History] Venlafaxine HCl [Effexor XR] 225 mg PO DAILY 06/30/17 [History] Cider Vinegar [Apple Cider Vinegar] 900 mg PO DAILY 11/30/17 [History] Ibuprofen [Motrin] 600 mg PO Q8HR PRN 11/30/17 [History] Follow up Appointment(s)/Referral(s): Flaca Aguilar DO [Primary Care Provider] - 1-2 days Patient Instructions/Handouts: Abdominal Pain (ED) Discharge Disposition: Left Against Medical Advice
== END 2017-12-26 13:05 | disposition left against medical advice (07) ==
LOC: EC 03:53 → 3NMEDONC 06:23
PROVIDERS: ADMIT Hospitalist; ATTEND Hospitalist
DX: R10.11 Right upper quadrant pain (principal); K56.7 Ileus, unspecified; J45.909 Unspecified asthma, uncomplicated; I83.90 Asymptomatic varicose veins of unspecified lower extremity; G47.30 Sleep apnea, unspecified; F41.0 Panic disorder [episodic paroxysmal anxiety]; K57.30 Diverticulosis of large intestine without perforation or abscess without bleeding; F41.9 Anxiety disorder, unspecified; F32.9 Major depressive disorder, single episode, unspecified; F17.200 Nicotine dependence, unspecified, uncomplicated; Z79.899 Other long term (current) drug therapy; Z91.030 Bee allergy status; Z91.040 Latex allergy status; Z91.048 Other nonmedicinal substance allergy status; Z86.39 Personal history of other endocrine, nutritional and metabolic disease; Z86.79 Personal history of other diseases of the circulatory system; Z87.442 Personal history of urinary calculi; Z87.440 Personal history of urinary (tract) infections; Z98.84 Bariatric surgery status; Z98.51 Tubal ligation status; Z90.721 Acquired absence of ovaries, unilateral; E66.9 Obesity, unspecified; Z68.39 Body mass index [BMI] 39.0-39.9, adult; Z74.01 Bed confinement status; Z53.21 Procedure and treatment not carried out due to patient leaving prior to being seen by health care provider
CPT/HCPCS: 96375 ×2; 96376; 96361; 96374; 99285; 36415; 80053; 82150; 83690; 85025; 81003; 81025; 74018; 74177; G0378; J2270; J2405; J1885; Q9967

== ENCOUNTER 2024-07-01 08:23 | Inpatient (IN) | payer MEDICARE, OTHER ==
--- NOTE | 2024-07-01 09:46 | ED ---
SOB HPI - General Chief Complaint: Shortness of Breath Stated Complaint: SOB Time Seen by Provider: 07/01/24 08:26 Source: patient, EMS Mode of arrival: EMS Limitations: no limitations - History of Present Illness Initial Comments: 49-year-old female presents to the emergency department as a transfer from [facility]. She has a history of asthma. States that she had abrupt onset of shortness of breath just prior to going into [facility]. Admits to a nonproductive cough which has been present for the past several months. Evaluated through her primary care doctor and has received intermittent injections of Solu-Medrol. States that she cannot tolerate oral steroids. Patient has no active therapies at this time. She also reports to right sided pleuritic pain, nasal congestion, sore throat and posttussive emesis. She denies any history of coronary disease. No other alleviating, precipitating or modifying factors - Related Data Home Medications Medication Instructions Recorded Confirmed Ascorbic Acid [Vitamin C] 1,000 mg PO DAILY 02/17/16 07/01/24 Calcium Citrate 1200mg+Vitamin D 1 tab PO DAILY 04/13/16 07/01/24 EPINEPHrine [Epipen 2-Nikhil] 0.3 mg IM ONCE PRN 06/30/17 07/01/24 Loratadine [Claritin] 10 mg PO DAILY 06/30/17 07/01/24 Albuterol Nebulized [Ventolin 2.5 mg INHALATION RT-TID PRN 07/01/24 07/01/24 Nebulized] Albuterol Sulfate [Albuterol 2 puff INHALATION RT-QID PRN 07/01/24 07/01/24 Sulfate Hfa] Ezetimibe [Zetia] 10 mg PO HS 07/01/24 07/01/24 FLUoxetine HCL [PROzac] 40 mg PO DAILY 07/01/24 07/01/24 Famotidine [Pepcid] 20 mg PO HS 07/01/24 07/01/24 Fluticasone Nasal [place] [Flonase 1 spray EA NOSTRIL DAILY 07/01/24 07/01/24 Nasal [place]] Fluticasone/Umeclidin/Vilanter 1 puff INHALATION RT-DAILY 07/01/24 07/01/24 [Trelegy Ellipta 200-62.5-25] Gabapentin [Neurontin] 800 mg PO BID 07/01/24 07/01/24 Gabapentin [Neurontin] 800 mg PO DAILY PRN 07/01/24 07/01/24 Montelukast [Singulair] 10 mg PO HS 07/01/24 07/01/24 Omeprazole [PriLOSEC] 40 mg PO BID 07/01/24 07/01/24 QUEtiapine [SEROquel] 100 mg PO HS 07/01/24 07/01/24 Triamterene-Hctz 37.5-25Mg 1 cap PO DAILY 07/01/24 07/01/24 [Dyazide 37.5-25 Capsule] Venlafaxine HCl [Effexor XR] 150 mg PO DAILY 07/01/24 07/01/24 Venlafaxine HCl [Effexor] 75 mg PO DAILY 07/01/24 07/01/24 Vitamin C/Biotin [Hair, Skin and 1 tab PO DAILY 07/01/24 07/01/24 Nails Chew] oxyCODONE-APAP 10-325MG [Percocet 1 tab PO TID 07/01/24 07/01/24 10-325 mg] tiZANidine [Zanaflex] 8 mg PO TID 07/01/24 07/01/24 Previous Rx's Medication Instructions Recorded Fluconazole [Diflucan] 200 mg PO DAILY #10 tablet 07/07/24 Allergies Allergy/AdvReac Type Severity Reaction Status Date / Time latex Allergy Unknown Rash/Hives Verified 07/01/24 10:42 animal dander Allergy Unknown Verified 07/01/24 10:42 bee venom protein (honey bee) Allergy Swelling Verified 07/01/24 10:42 Review of Systems ROS Statement: Those systems with pertinent positive or pertinent negative responses have been documented in the HPI. ROS Other: All systems not noted in ROS Statement are negative. Past Medical History Past Medical History: Asthma Additional Past Medical History / Comment(s): PAST HX OF HTN, DIABETES -NO PROBLEM NOW-CHECKS SELF DAILY BUT TAKES NO MEDS., VARICOSE VEINS, SLEEP APNEA- DOES NOT USE MACHINE, CHRONIC BACK PAIN, RIGHT ROTATOR CUFF TEAR WITH LIMITED R.O.M., RIGGS ON RIGHT ARM, HX OF MULTIPLE KIDNEY INFECTIONS.INTERMITENT PROBLEM SWALLOWING FOODS History of Any Multi-Drug Resistant Organisms: None Reported Past Surgical History: Bariatric Surgery, Section, Orthopedic Surgery, Tubal Ligation Additional Past Surgical History / Comment(s): X3, GASTRIC SLEEVE (2012), OVARY REMOVED., URETERAL STENT.PANNICULECTOMY with 2 kurtis drains rt shoulder Past Anesthesia/Blood Transfusion Reactions: No Reported Reaction Past Psychological History: Anxiety, Depression, Panic Disorder Past Alcohol Use History: Occasional Past Drug Use History: Marijuana General Exam Limitations: no limitations General appearance: alert, in no apparent distress Head exam: Present: atraumatic, normocephalic, normal inspection Eye exam: Present: normal appearance, PERRL, EOMI. Absent: scleral icterus, conjunctival injection, periorbital swelling ENT exam: Present: normal exam, mucous membranes moist Neck exam: Present: normal inspection. Absent: tenderness, meningismus, lymphadenopathy Respiratory exam: Present: wheezes, decreased breath sounds. Absent: respiratory distress, rales, rhonchi, stridor Cardiovascular Exam: Present: normal rhythm, tachycardia, normal heart sounds. Absent: systolic murmur, diastolic murmur, rubs, gallop, clicks GI/Abdominal exam: Present: soft, normal bowel sounds. Absent: distended, tenderness, guarding, rebound, rigid Extremities exam: Present: normal inspection, full ROM, normal capillary refill. Absent: tenderness, pedal edema, joint swelling, calf tenderness Back exam: Present: normal inspection Neurological exam: Present: alert, oriented X3, CN II-XII intact Psychiatric exam: Present: normal affect, normal mood Skin exam: Present: warm, dry, intact, normal color. Absent: rash Course Vital Signs 07/01/24 07/01/24 07/01/24 08:31 08:33 08:34 Temperature Pulse Rate 112 H Respiratory Rate Blood Pressure O2 Sat by Pulse 99 Oximetry Fraction of 50 50 Inspired Oxygen (FIO2) 07/01/24 07/01/24 07/01/24 08:38 09:21 10:39 Temperature 98.4 F Pulse Rate 90 94 Respiratory 22 20 Rate Blood Pressure 112/94 91/61 O2 Sat by Pulse 99 95 Oximetry Fraction of Inspired Oxygen (FIO2) 07/01/24 07/01/24 11:15 11:26 Temperature Pulse Rate 93 95 Respiratory Rate Blood Pressure O2 Sat by Pulse 95 Oximetry Fraction of Inspired Oxygen (FIO2) Medical Decision Making - Medical Decision Making Was pt. sent in by a medical professional or institution (ИРИНА Cook, SUBSTANCE ABUSE PREVENTION COORDINATOR, urgent care, hospital, or [facility]cc...) When possible be specific @ -Patient was sent in from [facility] Did you speak to anyone other than the patient for history (EMS, parent, family, police, friend...)? What history was obtained from this source @ -I spoke with the transferring physician from [facility]. They do provide that they want to transfer the patient due to BiPAP and shortness of breath Did you review nursing and triage notes (agree or disagree)? Why? @ -I reviewed and agree with nursing and triage notes Were old charts reviewed (outside hosp., previous admission, EMS record, old EKG, old radiological studies, urgent care reports/EKG's, mcc records)? Report findings @ -I reviewed the chart from [facility]. Laboratory studies were comp leted. Patient slightly hypokalemic at 3.2. White count 17. Mag of 1.6. D- dimer was 1.05. Troponin was negative. BNP of 30. Lactate of 1.8. Viral swab was negative. ABG demonstrated a pH of 7.4. Differential Diagnosis (chest pain, altered mental status, abdominal pain women, abdominal pain men, vaginal bleeding, weakness, fever, dyspnea, syncope, headache, dizziness, GI bleed, back pain, seizure, CVA, palpatations, mental health, musculoskeletal)? @ -Differential Dyspnea: Coronary syndrome, arrhythmia, tamponade, asthma, COPD, pulmonary embolism, pneumonia, pneumothorax, pulmonary effusion, anaphylaxis, diabetic ketoacidosis, flailed chest, pulmonary contusion, diaphragmatic rupture, anemia, neuromuscular, this is not meant to be an all-inclusive list. EKG interpreted by me (3pts min.). @ -Not done X-rays interpreted by me (1pt min.). @ -None done CT interpreted by me (1pt min.). @ -None done U/S interpreted by me (1pt. min.). @ -None done What testing was considered but not performed or refused? (CT, X-rays, U/S, labs)? Why? @ -Laboratory studies and chest x-ray were considered however patient already had this testing done at [facility] What meds were considered but not given or refused? Why? @ -None Did you discuss the management of the patient with other professionals (professionals i.e. , PA, SUBSTANCE ABUSE PREVENTION COORDINATOR, lab, RT, psych nurse, healthcare social worker, broomcorn press feeder, te acher, chief quality officer, major case detective)? Give summary @ -Spoke with Dr. Vides for admission Was smoking cessation discussed for >3mins.? @ -No Was critical care preformed (if so, how long)? @ -35 minutes for management of BiPAP respiratory failure Were there social determinants of health that impacted care today? How? (Homelessness, low income, unemployed, alcoholism, drug addiction, transportat ion, low edu. Level, literacy, decrease access to med. care, fdc, rehab)? @ -No Was there de-escalation of care discussed even if they declined (Discuss DNR or withdrawal of care, Hospice)? DNR status @ -No What co-morbidities impacted this encounter? (DM, HTN, Smoking, COPD, CAD, Cancer, CVA, ARF, Chemo, Hep., AIDS, mental health diagnosis, sleep apnea, morbid obesity)? @ -Asthma Was patient admitted / discharged? Hospital course, mention meds given and route, prescriptions, significant lab abnormalities, going to OR and other pertinent info. @ -Upon arrival patient was seen and evaluated in room 1. She does arrive on a BiPAP with settings of 10/5. This was placed on the patient because she was hypoxic with an oxygen saturation of 83% at [facility]. She was provided with a DuoNeb treatment, 125 Solu-Medrol and 2 g of magnesium at their facility. She additionally got 4 mg of morphine and 4 mg of Zofran for her pleuritic chest pain and nausea. Chest x-ray demonstrated diffuse groundglass opacities suggesting pulmonary edema. She also received [address] angiography was performed which demonstrated no evidence of pulmonary embolism with bilateral infiltrates. Patient was given a dose of Zosyn and vancomycin after blood cultures were obtained. Lactic acid not elevated and therefore IV fluids were not administered. They did try to take the patient off of BiPAP however she remained dyspneic on 6 L. Patient transferred to our facility for higher level of care. I did review the patient's packet, spoke with Dr. Vides and admitted the patient. I did order tomorrow's antibiotics. Undiagnosed new problem with uncertain prognosis? @ -No Drug Therapy requiring intensive monitoring for toxicity (Heparin, Nitro, Insulin, Cardizem)? @ -No Were any procedures done? @ -No Diagnosis/symptom? @ -Acute BiPAP dependent respiratory failure, acute exacerbation of asthma, community-acquired pneumonia Acute, or Chronic, or Acute on Chronic? @ -Acute Uncomplicated (without systemic symptoms) or Complicated (systemic symptoms)? @ -Complicated Side effects of treatment? @ -No Exacerbation, Progression, or Severe Exacerbation? @ -Yes Poses a threat to life or bodily function? How? (Chest pain, USA, NV, pneumonia, PE, COPD, DKA, ARF, appy, cholecystitis, CVA, Diverticulitis, Homicidal, Suicidal, threat to staff... and all critical care pts) @ -Yes as patient did require BiPAP - Lab Data Result diagrams: 07/07/24 06:11 07/10/24 06:05 Disposition Clinical Impression: BiPAP (biphasic positive airway pressure) dependence, Hypoxia, Pneumonia Disposition: ADMITTED IP TO THIS [facility] Condition: Stable Is patient prescribed a controlled substance at d/c from ED?: No Time of Disposition: 09:52 Decision to Admit Reason: Admit from EC Decision Date: 07/01/24 Decision Time: 09:52
[2024-07-01] MEDS ORDERED: NALOXONE 0.4 MG/ML 1 ML VIAL IV PRN (09:52)
[2024-07-01] MEDS ORDERED: PNEUMONIA PROTOCOL UTILIZED 1 EACH MISC PO PRN (09:54)
[2024-07-01] MEDS: AZITHROMYCIN 500 MG in SODIUM CHLORIDE 0.9% 250 ML IVPB STA (10:21)
[2024-07-01] MEDS: IPRATROPIUM-ALBUTEROL 3 ML NEB INHALATION SCH (11:15)
[2024-07-01] MEDS: GABAPENTIN 400 MG CAP PO PRN (15:10)
[2024-07-01] MEDS: methylPREDNISolone SOD SUCCI 40 MG/ML 1 ML VIAL IV SCH (15:10)
[2024-07-01] MEDS: oxyCODONE-APAP 10-325MG 1 EACH TAB PO PRN (15:10)
[2024-07-01] MEDS: PANTOPRAZOLE 40 MG TABLET PO SCH (15:35)
[2024-07-01] MEDS: tiZANidine 4 MG TAB PO SCH (16:03)
--- NOTE | 2024-07-01 16:44 | P.HPIM ---
History of Present Illness H&P Date: 07/01/24 49 year old F with PMH of Asthma, GERD, HLD, HTN, Anxiety and Depression presents to [facility] as a transfer from [place]. Patient reports shortness of breath with cough productive of yellow-green sputum ongoing for the past day. Patient reports battling recurrent PNA since January. She also reports to right sided pleuritic pain, and posttussive emesis. Smoker for the past 34 years, quit 1.5 years ago. In the ED she underwent extensive evaluation. She was placed on BiPAP for about an hour and was able to be transitioned to nasal cannula. Vital signs now BP 166/80, HR 102, RR 20, T 97.6F, 96% on 2L NC. Lab analysis significant for WBC 17.12, Hg 9.9. K 3.2. Mag 1.6. Trop < 0.1. BNP 30.2. D-Dimer 1.05. COVID, RSV, Flu neg. Lactic 1.8. ABG pH 7.41. EKG sinus tachycardia. CTA chest bilateral infiltrates and dilated esophagus. She is admitted for asthma exacerbation with Pulmonary on consult. General: no distress, appears at stated age Derm: warm, dry Head: atraumatic, normocephalic, symmetric Mouth: no lip lesion, mucus membranes moist Cardiovascular: S1 S2 tachy. No murmur. Lungs: Decreased BS bilaterally, no accessory muscle use Ext: no gross muscle atrophy, no edema, no contractures Neuro: No focal neurologic deficits. Psych: Alert and oriented. Based on my assessment of this patient, this patient meets a high complexity level of care. Acute hypoxic respiratory failure secondary to asthma exacerbation + PNA: Concerns for aspiration given severe GERD. DuoNeb QID scheduled and PRN for SOB/wheezing. Symbicort 2 INH BID. SoluMedrol 40 mg IV TID. Singulair 10 mg PO QHS. Spiriva 2 INH QD. Empirically started on antibiotics Rocephin 2g IV QD + Azithromycin 500 mg PO QD. Obtain pro-ken and Echocardiogram. Telemetry monitoring. Supplemental O2 to maintain O2 sat > 92%. Pulmonary consult. Sepsis likely related to PNA: Obtain Sputum Cx, Legionella Ag. Obtain Pro-ken. Follow BCx. Telemetry monitoring. HypoK + HypoMg: Replace via protocol. Repeat BMP, Mag in the AM. Elevated D-Dimer: CTA neg for PE. Dyslipidemia: Zetia 10 mg PO QHS. Depression and Anxiety: Prozac 40 mg PO QD. Seroquel 100 mg PO QHS. Effexor 225 mg PO QD. GERD: Protonix 40 mg PO BID. Hypertension: Triamterene-HCTZ 37.5-25 mg PO QD. CODE STATUS: FULL CODE DVT Prophylaxis: Lovenox SQ GI Prophylaxis: Protonix PO Designated medical POA if patient is not able to make medical decisions for themselves: George, Enoc I have reviewed the following bath design sales consultant notes: ED note. I have reviewed the results of the following tests: As above. I have ordered the following tests: As above. I have discussed the care of this patient with the following independent historian: I have independently interpreted the following test below: EKG. I have discussed the management of this patient with the following physician: Past Medical History Past Medical History: Asthma Additional Past Medical History / Comment(s): PAST HX OF HTN, DIABETES -NO PROBLEM NOW-CHECKS SELF DAILY BUT TAKES NO MEDS., VARICOSE VEINS, SLEEP APNEA- DOES NOT USE MACHINE, CHRONIC BACK PAIN, RIGHT ROTATOR CUFF TEAR WITH LIMITED R.O.M., RIGGS ON RIGHT ARM, HX OF MULTIPLE KIDNEY INFECTIONS.INTERMITENT PROBLEM SWALLOWING FOODS History of Any Multi-Drug Resistant Organisms: None Reported Past Surgical History: Bariatric Surgery, Section, Cholecystectomy, Orthopedic Surgery, Tubal Ligation Additional Past Surgical History / Comment(s): X3, GASTRIC SLEEVE (2011), OVARY REMOVED., URETERAL STENT.PANNICULECTOMY with 2 kurtis drains rt shoulder Past Anesthesia/Blood Transfusion Reactions: No Reported Reaction Past Psychological History: Anxiety, Depression, Panic Disorder Smoking Status: Former smoker Past Alcohol Use History: None Reported Past Drug Use History: Marijuana Medications and Allergies Home Medications Medication Instructions Recorded Confirmed Type Ascorbic Acid [Vitamin C] 1,000 mg PO DAILY 02/17/16 07/01/24 History Calcium Citrate 1200mg+Vitamin D 1 tab PO DAILY 04/13/16 07/01/24 History EPINEPHrine [Epipen 2-Nikhil] 0.3 mg IM ONCE PRN 06/30/17 07/01/24 History Loratadine [Claritin] 10 mg PO DAILY 06/30/17 07/01/24 History Albuterol Nebulized [Ventolin 2.5 mg INHALATION RT-TID PRN 07/01/24 07/01/24 History Nebulized] Albuterol Sulfate [Albuterol 2 puff INHALATION RT-QID PRN 07/01/24 07/01/24 History Sulfate Hfa] Ezetimibe [Zetia] 10 mg PO HS 07/01/24 07/01/24 History FLUoxetine HCL [PROzac] 40 mg PO DAILY 07/01/24 07/01/24 History Famotidine [Pepcid] 20 mg PO HS 07/01/24 07/01/24 History Fluticasone Nasal [place] [Flonase 1 spray EA NOSTRIL DAILY 07/01/24 07/01/24 History Nasal [place]] Fluticasone/Umeclidin/Vilanter 1 puff INHALATION RT-DAILY 07/01/24 07/01/24 History [Trelegy Ellipta 200-62.5-25] Gabapentin [Neurontin] 800 mg PO BID 07/01/24 07/01/24 History Gabapentin [Neurontin] 800 mg PO DAILY PRN 07/01/24 07/01/24 History Montelukast [Singulair] 10 mg PO HS 07/01/24 07/01/24 History Omeprazole [PriLOSEC] 40 mg PO BID 07/01/24 07/01/24 History QUEtiapine [SEROquel] 100 mg PO HS 07/01/24 07/01/24 History Triamterene-Hctz 37.5-25Mg 1 cap PO DAILY 07/01/24 07/01/24 History [Dyazide 37.5-25 Capsule] Venlafaxine HCl [Effexor XR] 150 mg PO DAILY 07/01/24 07/01/24 History Venlafaxine HCl [Effexor] 75 mg PO DAILY 07/01/24 07/01/24 History Vitamin C/Biotin [Hair, Skin and 1 tab PO DAILY 07/01/24 07/01/24 History Nails Chew] oxyCODONE-APAP 10-325MG [Percocet 1 tab PO TID 07/01/24 07/01/24 History 10-325 mg] tiZANidine [Zanaflex] 8 mg PO TID 07/01/24 07/01/24 History Allergies Allergy/AdvReac Type Severity Reaction Status Date / Time latex Allergy Unknown Rash/Hives Verified 07/01/24 10:42 animal dander Allergy Unknown Verified 07/01/24 10:42 bee venom protein (honey bee) Allergy Swelling Verified 07/01/24 10:42 Physical Exam Vitals: Vital Signs Temp Pulse Pulse Resp BP BP Pulse Ox 07/01/24 12:10 97.6 F 102 H 20 166/80 96 07/01/24 11:26 95 07/01/24 11:15 93 95 07/01/24 10:39 94 20 91/61 95 07/01/24 09:21 90 22 112/94 99 07/01/24 08:38 98.4 F 07/01/24 08:34 07/01/24 08:33 07/01/24 08:31 112 H 99 FiO2 07/01/24 12:10 07/01/24 11:26 07/01/24 11:15 07/01/24 10:39 07/01/24 09:21 07/01/24 08:38 07/01/24 08:34 50 07/01/24 08:33 50 07/01/24 08:31 Intake and Output 07/01/24 07/01/24 07/01/24 06:59 14:59 22:59 Output Total 1000 Balance -1000 Output: Urine 1000 Other: Voiding Method External Catheter Weight 101.605 kg Thrombosis Risk Factor Assmnt - Choose All That Apply Each Factor Represents 1 point: Abnormal pulmonary function (COPD), Age 41-60 years, Obesity (BMI >25) Thrombosis Risk Factor Assessment Total Risk Factor Score: 3 Thrombosis Risk Factor Assessment Level: Moderate Risk
[2024-07-01] MEDS: MONTELUKAST 10 MG TAB PO SCH (20:38)
[2024-07-01] MEDS: GABAPENTIN 400 MG CAP PO SCH (20:38)
[2024-07-01] MEDS: KETOROLAC 15 MG/ML 1 ML VIAL IVP PRN (20:38)
[2024-07-01] MEDS: EZETIMIBE 10 MG TAB PO SCH (20:38)
[2024-07-01] MEDS: MORPHINE SULFATE 4 MG/ML SYRINGE IVP PRN (20:39)
[2024-07-01] MEDS: QUEtiapine 100 MG TAB PO SCH (20:40)
[2024-07-01] MEDS ORDERED: PANTOPRAZOLE 40 MG TABLET PO SCH (21:00)
[2024-07-01] MEDS: BENZOCAINE/MENTHOL LOZENG 1 EACH LOZENGE MUCOUS MEM PRN (23:12)
[2024-07-02 06:59] LABS: Basophils # (A) 0.06 10*3/uL (0.00-0.10); Basophils % (A) 0.3 %; HCT 35.1 % (37.2-46.3); Lymphocytes # (A) 1.44 10*3/uL (0.90-5.00); Lymphocytes % (A) 6.9 %; MCH 27.8 pg (27.0-32.0); MCHC 31.3 g/dL (32.0-37.0); MCV 88.6 fL (80.0-97.0); Mean Platelet Volume 9.7 fL (9.5-12.2); Monocytes # (A) 0.71 10*3/uL (0.20-1.00); Monocytes % (A) 3.4 %; Neutrophils % (A) 88.7 %; Platelet Count 547 10*3/uL (140-440); RBC 3.96 10*6/uL (4.10-5.20); RDW 15.2 % (11.5-14.5); WBC 20.95 10*3/uL (4.50-10.00)
[2024-07-02 07:18] LABS: African American GFR (CKD) >90 (>60 ml/min/1.73 sqM); Anion Gap 14 mmol/L; Blood Urea Nitrogen 29 mg/dL (7-17); Calcium 10.1 mg/dL (8.4-10.2); Carbon Dioxide 27 mmol/L (22-30); Chloride 100 mmol/L (98-107); Glucose 146 mg/dL (74-99); Non-African American GFR(CKD) >90 (>60 ml/min/1.73 sqM); Potassium 3.5 mmol/L (3.5-5.1); Sodium 141 mmol/L (137-145)
--- NOTE | 2024-07-02 07:18 | XR ---
EXAMINATION TYPE: XR chest 1V portable DATE OF EXAM: 07/02/2024 5:59 AM COMPARISON: Chest radiographs from 07/01/2024, CTA chest 07/01/2024 TECHNIQUE: XR chest 1V portable Portable AP radiograph of the chest. CLINICAL INDICATION:Female, 49 years old with history of PNA; FINDINGS: Lungs/Pleura: There is no evidence of pleural effusion, focal consolidation, or pneumothorax. Diffus e interstitial prominence. Pulmonary vascularity: Unremarkable. Heart/mediastinum: Cardiomediastinal silhouette is unremarkable. Musculoskeletal: No acute osseous pathology. IMPRESSION: Diffuse interstitial prominence which is improved from prior radiograph. Correlate for atypical pneum onia versus interstitial pulmonary edema. [facility], , 07/02/2024 7:16 AM
[2024-07-02] MEDS: ENOXAPARIN 40 MG/0.4 ML SYRINGE SQ SCH (07:54)
[2024-07-02] MEDS: VENLAFAXINE HCL ER 150 MG CAP PO SCH (07:55)
[2024-07-02] MEDS: LORATADINE 10 MG TAB PO SCH (07:55)
[2024-07-02] MEDS: VENLAFAXINE HCL 75 MG TAB PO SCH (07:55)
[2024-07-02] MEDS: AZITHROMYCIN 500 MG TAB PO SCH (07:55)
[2024-07-02] MEDS: FLUoxetine HCL 20 MG CAP PO SCH (07:56)
[2024-07-02] MEDS: TRIAMTERENE-HCTZ 37.5-25MG 1 EACH CAP PO SCH (07:56)
[2024-07-02] MEDS: IPRATROPIUM-ALBUTEROL 3 ML NEB INHALATION SCH (08:15)
[2024-07-02] MEDS: SYMBICORT 160-4.5 MCG INHALER INHALATION SCH (08:15)
[2024-07-02] MEDS: TIOTROPIUM 2.5 MCG INHALER INHALATION SCH (08:16)
[2024-07-02] MEDS: FUROSEMIDE 10 MG/ML 4 ML VIAL IV STA (08:49)
--- NOTE | 2024-07-02 11:16 | P.PN ---
Subjective Progress Note Date: 07/02/24 49 year old F with PMH of Asthma, GERD, HLD, HTN, Anxiety and Depression presents to [facility] as a transfer from [place]. Patient reports shortness of breath with cough productive of yellow-green sputum ongoing for the past day. Patient reports battling recurrent PNA since January. She also reports to right sided pleuritic pain, and posttussive emesis. Smoker for the past 34 years, quit 1.5 years ago. In the ED she underwent extensive evaluation. She was placed on BiPAP for about an hour and was able to be transitioned to nasal cannula. Vital signs now BP 166/80, HR 102, RR 20, T 97.6F, 96% on 2L NC. Lab analysis significant for WBC 17.12, Hg 9.9. K 3.2. Mag 1.6. Trop < 0.1. BNP 30.2. D-Dimer 1.05. COVID, RSV, Flu neg. Lactic 1.8. ABG pH 7.41. EKG sinus tachycardia. CTA chest bilateral infiltrates and dilated esophagus. She is admitted for asthma exacerbation with Pulmonary on consult. Started on bronchodilators and SoluMedrol. 07/02 Patient was seen and examined. Breathing 60% improved. She reports difficulty swallowing. Previous gastric bypass with Dr. Vanessa. Recently underwent MBS and EGD in [place] back in October, not sure of results, never followed up. Reports history of pulmonary abscess. 93% on 3L NC. CBC and CMP significant for WBC 20.95, RBC 3.96, Hg 11, Hct 35.1, Plt 547, BUN 29, glu 146. Legionella Ag neg. CXR shows persistent bilateral infiltrates. General: no distress, appears at stated age Derm: warm, dry Head: atraumatic, normocephalic, symmetric Mouth: no lip lesion, mucus membranes moist Cardiovascular: S1 S2 tachy. No murmur. Lungs: Decreased BS bilaterally, no accessory muscle use Ext: no gross muscle atrophy, no edema, no contractures Neuro: No focal neurologic deficits. Psych: Alert and oriented. Based on my assessment of this patient, this patient meets a high complexity level of care. Acute hypoxic respiratory failure secondary to asthma exacerbation + PNA: Concerns for aspiration given severe GERD. DuoNeb QID scheduled and PRN for SOB/wheezing. Symbicort 2 INH BID. SoluMedrol 40 mg IV TID. Singulair 10 mg PO QHS. Spiriva 2 INH QD. Switch Rocephin + Azithromycin to Zosyn 3.75 g IV TID. Pro-ken and Echocardiogram pending. Telemetry monitoring. Supplemental O2 to maintain O2 sat > 92%. Pulmonary consult. Sepsis likely related to PNA: Management as above. Follow Sputum Cx, Pro-ken, BCx. Telemetry monitoring. Dysphagia: ST consulted to evaluate swallow. Aspiration precautions. Elevated HOB. Normocytic anemia with Thrombocytosis: Likely iron def. anemia. No signs of active bleeding. Monitor. Elevated D-Dimer: CTA neg for PE. Dyslipidemia: Zetia 10 mg PO QHS. Depression and Anxiety: Prozac 40 mg PO QD. Seroquel 100 mg PO QHS. Effexor 225 mg PO QD. GERD: Protonix 40 mg PO BID. Hypertension: Triamterene-HCTZ 37.5-25 mg PO QD. Resolved: HypoMg, HypoK CODE STATUS: FULL CODE DVT Prophylaxis: Lovenox SQ GI Prophylaxis: Protonix PO Designated medical POA if patient is not able to make medical decisions for themselves: Enoc Vazquez I have reviewed the following men's custom hair piece consultant notes: I have reviewed the results of the following tests: CBC, CMP, Legionella. I have ordered the following tests: Pro-ken, Sputum Cx, Echo pending. I have discussed the care of this patient with the following independent historian: I have independently interpreted the following test below: CXR I have discussed the management of this patient with the following physician: Objective - Vital Signs Vital signs: Vital Signs Temp 97.5 F L 07/02/24 03:21 Pulse 92 07/02/24 08:17 Resp 16 07/02/24 03:21 BP 124/67 07/02/24 03:21 Pulse Ox 93 L 07/02/24 03:21 FiO2 50 07/01/24 08:34 Intake & Output 07/01/24 07/02/24 07/02/24 18:59 06:59 18:59 Intake Total 540 200 Output Total 1000 Balance -460 200 Weight 101.605 kg 104 kg Intake: Oral 540 200 Output: Urine 1000 Other: Voiding Method External Catheter Toilet External Catheter - Labs CBC & Chem 7: 07/02/24 06:32 07/02/24 06:32 Labs: Abnormal Lab Results - Last 24 Hours (Table) 07/02/24 07/02/24 Range/Units 06:32 06:32 WBC 20.95 H (4.50-10.00) 10*3/uL RBC 3.96 L (4.10-5.20) 10*6/uL Hgb 11.0 L (12.0-15.0) g/dL Hct 35.1 L (37.2-46.3) % MCHC 31.3 L (32.0-37.0) g/dL Plt Count 547 H (140-440) 10*3/uL Immature Gran # 0.14 H (0.00-0.04) 10*3/uL Neutrophils # 18.60 H (1.80-7.70) 10*3/uL Eosinophils # 0.00 L (0.04-0.35) 10*3/uL BUN 29 H (7-17) mg/dL Glucose 146 H (74-99) mg/dL
[2024-07-02] MEDS: PIPERACILLIN-TAZOBACTAM 3.375 GM in SODIUM CHLORIDE 0.9% 100 ML IVPB SCH (15:39)
--- NOTE | 2024-07-02 19:12 | P.CNPUL ---
History of Present Illness Consult date: 07/02/24 Reason for consult: dyspnea History of present illness: On 07/02/2024, the patient is being seen in consult regarding shortness of breath. The patient reports that she has been having shortness of breath since January 2024. She has been told to have pneumonias on several occasions by various health practitioners and the patient was treated accordingly. The patient came into the emergency department at [facility] yesterday complaining of coughing with sputum production a few days duration. Based on that, the patient was given a chest x-ray and the chest x-ray was consistent with cardiomegaly and pulmonary edema. Following that, the patient was given a CAT scan of the chest that was reported to be possible pulmonary infiltrates. Based on that, the patient got transferred to [facility] for further evaluation. The patient is currently on 2 L of oxygen by nasal cannula. Blood work was reviewed and the patient has a white cell count of 20 with a hemoglobin of 11 and a platelet count of 547. BUN is 29 with a creatinine of 0.66 and a sodium levels at 141. Procalcitonin level is at 0.22. Calcium level is at 10.1 and the Legionella urine antigen was negative. The patient was started on IV Zosyn. Hemodynamically stable. Oxygenation is also stable and the patient remains on 2 to 3 L/min nasal cannula. No fever documented here in the hospital. According to records from [facility], the viral screen was negative. Her lactic acid level was at 1.8. D-dimer was at 1.05. proBNP level was 30.2. Tro ponins were negative. Her CTA of the chest showed bilateral infiltrates with groundglass pulmonary opacities. Patient denies having any history of congestion heart failure. She has undergone previous gastric sleeve for morbid obesity and the patient has lost more than 200 pounds. She has hypertension hyperlipidemia and degenerative arthritis. She has obstructive sleep apnea and she has not utilized CPAP therapy. She is morbidly obese with a body mass index of 40. Review of Systems Constitutional: Reports fatigue, Reports weight loss Eyes: denies as per HPI, denies blurred vision, denies bulging eye, denies decreased vision, denies diplopia, denies discharge, denies dry eye, denies irritation, denies itching, denies pain, denies photophobia, denies loss of peripheral vision, denies loss of vision, denies tunnel vision/blind spots Ears: deny: decreased hearing, ear discharge, earache, tinnitus Ears, nose, mouth and throat: Reports as per HPI Breasts: absent: as per HPI, change in shape, gynecomastia, masses, nipple discharge, pain, skin changes, swelling Cardiovascular: Reports decreased exercise tolerance, Reports dyspnea on exertion, Reports shortness of breath Respiratory: Reports cough Gastrointestinal: Reports as per HPI Genitourinary: Reports as per HPI Menstruation: Reports as per HPI Musculoskeletal: Reports as per HPI Musculoskeletal: absent: ankle pain, ankle stiffness, ankle swelling, as per HPI, elbow pain, elbow stiffness, elbow swelling, foot pain, foot stiffness, foot swelling, hand pain, hand stiffness, hand swelling, hip pain, hip stiffne ss, hip swelling, knee pain, knee stiffness, knee swelling, shoulder pain, shoulder stiffness, shoulder swelling, wrist pain, wrist stiffness, wrist swelling Integumentary: Reports as per HPI Neurological: Reports as per HPI Psychiatric: Reports as per HPI Endocrine: Reports as per HPI Hematologic/Lymphatic: Reports as per HPI Past Medical History Past Medical History: Asthma Additional Past Medical History / Comment(s): PAST HX OF HTN, DIABETES , NO PROBLEM NOW-CHECKS SELF DAILY BUT TAKES NO MEDS., VARICOSE VEINS, SLEEP APNEA- DOES NOT USE MACHINE, CHRONIC BACK PAIN, RIGHT ROTATOR CUFF TEAR WITH LIMITED R.O.M., RIGGS ON RIGHT ARM, HX OF MULTIPLE KIDNEY INFECTIONS.INTERMITENT PROBLEM SWALLOWING FOODS History of Any Multi-Drug Resistant Organisms: None Reported Past Surgical History: Bariatric Surgery, Section, Cholecystectomy, Orthopedic Surgery, Tubal Ligation Additional Past Surgical History / Comment(s): X3, GASTRIC SLEEVE (2011), OVARY REMOVED., URETERAL STENT.PANNICULECTOMY with 2 kurtis drains rt jonna neely Past Anesthesia/Blood Transfusion Reactions: No Reported Reaction Past Psychological History: Anxiety, Depression, Panic Disorder Smoking Status: Former smoker Past Alcohol Use History: None Reported Past Drug Use History: Marijuana Medications and Allergies Home Medications Medication Instructions Recorded Confirmed Type Ascorbic Acid [Vitamin C] 1,000 mg PO DAILY 02/17/16 07/01/24 History Calcium Citrate 1200mg+Vitamin D 1 tab PO DAILY 04/13/16 07/01/24 History EPINEPHrine [Epipen 2-Nikhil] 0.3 mg IM ONCE PRN 06/30/17 07/01/24 History Loratadine [Claritin] 10 mg PO DAILY 06/30/17 07/01/24 History Albuterol Nebulized [Ventolin 2.5 mg INHALATION RT-TID PRN 07/01/24 07/01/24 History Nebulized] Albuterol Sulfate [Albuterol 2 puff INHALATION RT-QID PRN 07/01/24 07/01/24 History Sulfate Hfa] Ezetimibe [Zetia] 10 mg PO HS 07/01/24 07/01/24 History FLUoxetine HCL [PROzac] 40 mg PO DAILY 07/01/24 07/01/24 History Famotidine [Pepcid] 20 mg PO HS 07/01/24 07/01/24 History Fluticasone Nasal [place] [Flonase 1 spray EA NOSTRIL DAILY 07/01/24 07/01/24 History Nasal [place]] Fluticasone/Umeclidin/Vilanter 1 puff INHALATION RT-DAILY 07/01/24 07/01/24 History [Trelegy Ellipta 200-62.5-25] Gabapentin [Neurontin] 800 mg PO BID 07/01/24 07/01/24 History Gabapentin [Neurontin] 800 mg PO DAILY PRN 07/01/24 07/01/24 History Montelukast [Singulair] 10 mg PO HS 07/01/24 07/01/24 History Omeprazole [PriLOSEC] 40 mg PO BID 07/01/24 07/01/24 History QUEtiapine [SEROquel] 100 mg PO HS 07/01/24 07/01/24 History Triamterene-Hctz 37.5-25Mg 1 cap PO DAILY 07/01/24 07/01/24 History [Dyazide 37.5-25 Capsule] Venlafaxine HCl [Effexor XR] 150 mg PO DAILY 07/01/24 07/01/24 History Venlafaxine HCl [Effexor] 75 mg PO DAILY 07/01/24 07/01/24 History Vitamin C/Biotin [Hair, Skin and 1 tab PO DAILY 07/01/24 07/01/24 History Nails Chew] oxyCODONE-APAP 10-325MG [Percocet 1 tab PO TID 07/01/24 07/01/24 History 10-325 mg] tiZANidine [Zanaflex] 8 mg PO TID 07/01/24 07/01/24 History Allergies Allergy/AdvReac Type Severity Reaction Status Date / Time latex Allergy Unknown Rash/Hives Verified 07/01/24 10:42 animal dander Allergy Unknown Verified 07/01/24 10:42 bee venom protein (honey bee) Allergy Swelling Verified 07/01/24 10:42 Physical Exam Vitals: Vital Signs Temp Pulse Pulse Resp BP BP Pulse Ox 07/02/24 08:29 94 07/02/24 08:17 92 07/02/24 03:21 97.5 F L 80 16 124/67 93 L 07/01/24 23:09 97.5 F L 75 18 106/69 94 L 07/01/24 21:27 92 07/01/24 21:17 91 07/01/24 19:42 98.4 F 84 18 112/70 97 07/01/24 16:00 98 F 90 18 131/94 96 07/01/24 12:10 97.6 F 102 H 20 166/80 96 07/01/24 11:26 95 07/01/24 11:15 93 95 07/01/24 10:39 94 20 91/61 95 07/01/24 09:21 90 22 112/94 99 Intake and Output 07/01/24 07/02/24 07/02/24 22:59 06:59 14:59 Intake Total 540 200 Balance 540 200 Intake: Oral 540 200 Other: Voiding Method Toilet External Catheter Weight 104 kg The patient appeared well nourished and normally developed. Vital signs as documented. Comfortable on 2 L of oxygen by nasal cannula. Morbidly obese with a BMI of 40.6 Head exam is unremarkable. No scleral icterus or corneal arcus noted. Neck is without jugular venous distension, thyromegaly, or carotid bruits. Carotid upstrokes are brisk bilaterally. Lungs are clear to auscultation and percussion. Diminished breath sounds along with crackles bilaterally Cardiac exam reveals the PMI to be normally sized and situated. Rhythm is regular. First and second heart sounds normal. No murmurs, rubs or gallops. Abdominal exam reveals normal bowel sounds, no masses, no organomegaly and no aortic enlargement. Extremities are nonedematous and both femoral and pedal pulses are normal. Examination of the skin revealed no evidence of significant rashes, suspicious appearing nevi or other concerning lesions. Neurologically, the patient is awake and alert and the patient does not have any focal neurological deficit. Cranial nerves are essentially intact. Results - Laboratory Findings CBC and BMP: 07/02/24 06:32 07/02/24 06:32 Abnormal lab findings: Abnormal Labs 07/02/24 07/02/24 06:32 06:32 WBC 20.95 H RBC 3.96 L Hgb 11.0 L Hct 35.1 L MCHC 31.3 L Plt Count 547 H Immature Gran # 0.14 H Neutrophils # 18.60 H Eosinophils # 0.00 L BUN 29 H Glucose 146 H - Diagnostic Findings Chest x-ray: image reviewed Assessment and Plan Plan: acute hypoxic respiratory failure, currently on 2 L of oxygen by nasal cannula. Noted the patient's symptoms are subacute/chronic and the patient has been short of breath since January 2024. She does have interstitial groundglass bilateral pulmonary infiltrates. Rule out infection. Rule out ILD. Rule out CHF. Would like to review the CAT scan images for further understanding of the exact causes for her respiratory failure. No reported aspiration. No immunosuppression. The patient seems to be immunocompetent and non-smoker. Obesity, BMI 40 ELLYN , no using the CPAP Gastric sleeve for obesity 2011 and she has lost 200 pounds Leukocutosis Degenerative arthritis Acid reflux Hypertension Hyperlipidemia Plan Will review the CAT scan of the chest. If unable to review the CAT scan images from her left hospital, will order another CAT scan of the chest. Continue IV Zosyn Check LAMIN and rheumatoid factor Check sed rate Check proBNP Check echocardiogram Will continue to follow
[2024-07-02] MEDS: LORazepam 1 MG/0.5 ML VIAL IV PRN (19:48)
[2024-07-03] MEDS ORDERED: cefTRIAXone 2 GM in DEXTROSE 5% IN WATER 50 ML IVPB SCH (09:00)
--- NOTE | 2024-07-03 12:46 | P.GSCN ---
History of Present Illness Consult date: 07/03/24 History of present illness: CHIEF COMPLAINT: Shortness of breath HISTORY OF PRESENT ILLNESS: This is a 49-year-old female presented to the hospital as a transfer from [facility] due to worsening shortness of breath and nonproductive cough. She is followed by pulmonary service and medicine service. Surgical service has been consulted in regards to dysphagia. Patient reports that she has been having difficulty swallowing for several years since her sleeve in 2011. She reports though recently the difficulty with swallowing has gotten worse. Especially with solid foods such as chicken. She reports that even if it is finely shredded she feels that it is sticking. She reports vomiting almost daily due to the food sticking in her throat. She does report abdominal pain in the left lower abdomen. She reports dealing with constipation. Her surgical history does include sleeve gastrectomy, 3 C- sections, a panniculectomy and a tubal ligation. PAST MEDICAL HISTORY: Asthma, hypertension, diabetes sleep apnea, chronic back pain, anxiety and depression PAST SURGICAL HISTORY: Sleeve gastrectomy 2011, x 3 tubal ligation, panniculectomy MEDICATIONS: See below ALLERGIES: See below SOCIAL HISTORY: No illicit drug use. REVIEW OF SYSTEMS: CONSTITUTIONAL: Denies fever or chills. HEENT: Denies blurred vision, vision changes, or eye pain. Denies hemoptysis CARDIOVASCULAR: Denies chest pain or pressure. RESPIRATORY: No shortness of breath. GASTROINTESTINAL: See HPI for pertinent findings HEMATOLOGIC: Denies bleeding disorders. GENITOURINARY: Denies any blood in urine or increased urinary frequency. SKIN: Denies pruitis. Denies rash. PHYSICAL EXAM: VITAL SIGNS: Reviewed GENERAL: Well-developed in no acute distress. HEENT: No sclera icterus. Extraocular movements grossly intact. Moist buccal mucosa. Head is atraumatic, normocephalic. No nasal drainage. ABDOMEN: Soft. Obese. Nondistended. Mild tenderness palpation left lower quadrant NEUROLOGIC: Alert and oriented. Cranial nerves II through XII grossly intact. LABORATORY DATA: WBC 20.95 Hgb 11.0 platelets 547 Sodium 141 potassium 3.5 creatinine 0.66 IMAGING: ASSESSMENT: 1. Dysphagia 2. History of sleeve gastrectomy PLAN: - Upper GI for evaluation of dysphagia ordered - Patient seen by speech therapy they recommended regular diet with thin liquids and recommended an [facility] study Physician Data Transcriber note has been reviewed by physician. Signing provider agrees with the documented findings, assessment, and plan of care. Past Medical History Past Medical History: Asthma Additional Past Medical History / Comment(s): PAST HX OF HTN, DIABETES , NO PROBLEM NOW-CHECKS SELF DAILY BUT TAKES NO MEDS., VARICOSE VEINS, SLEEP APNEA- DOES NOT USE MACHINE, CHRONIC BACK PAIN, RIGHT ROTATOR CUFF TEAR WITH LIMITED R.O.M., RIGGS ON RIGHT ARM, HX OF MULTIPLE KIDNEY INFECTIONS.INTERMITENT PROBLEM SWALLOWING FOODS History of Any Multi-Drug Resistant Organisms: None Reported Past Surgical History: Bariatric Surgery, Section, Cholecystectomy, Orthopedic Surgery, Tubal Ligation Additional Past Surgical History / Comment(s): X3, GASTRIC SLEEVE (2011), OVARY REMOVED., URETERAL STENT.PANNICULECTOMY with 2 kurtis drains rt shoulder Past Anesthesia/Blood Transfusion Reactions: No Reported Reaction Past Psychological History: Anxiety, Depression, Panic Disorder Smoking Status: Former smoker Past Alcohol Use History: None Reported Past Drug Use History: Marijuana Medications and Allergies Home Medications Medication Instructions Recorded Confirmed Type Ascorbic Acid [Vitamin C] 1,000 mg PO DAILY 02/17/16 07/01/24 History Calcium Citrate 1200mg+Vitamin D 1 tab PO DAILY 04/13/16 07/01/24 History EPINEPHrine [Epipen 2-Nikhil] 0.3 mg IM ONCE PRN 06/30/17 07/01/24 History Loratadine [Claritin] 10 mg PO DAILY 06/30/17 07/01/24 History Albuterol Nebulized [Ventolin 2.5 mg INHALATION RT-TID PRN 07/01/24 07/01/24 History Nebulized] Albuterol Sulfate [Albuterol 2 puff INHALATION RT-QID PRN 07/01/24 07/01/24 History Sulfate Hfa] Ezetimibe [Zetia] 10 mg PO HS 07/01/24 07/01/24 History FLUoxetine HCL [PROzac] 40 mg PO DAILY 07/01/24 07/01/24 History Famotidine [Pepcid] 20 mg PO HS 07/01/24 07/01/24 History Fluticasone Nasal [place] [Flonase 1 spray EA NOSTRIL DAILY 07/01/24 07/01/24 History Nasal [place]] Fluticasone/Umeclidin/Vilanter 1 puff INHALATION RT-DAILY 07/01/24 07/01/24 History [Trelegy Ellipta 200-62.5-25] Gabapentin [Neurontin] 800 mg PO BID 07/01/24 07/01/24 History Gabapentin [Neurontin] 800 mg PO DAILY PRN 07/01/24 07/01/24 History Montelukast [Singulair] 10 mg PO HS 07/01/24 07/01/24 History Omeprazole [PriLOSEC] 40 mg PO BID 07/01/24 07/01/24 History QUEtiapine [SEROquel] 100 mg PO HS 07/01/24 07/01/24 History Triamterene-Hctz 37.5-25Mg 1 cap PO DAILY 07/01/24 07/01/24 History [Dyazide 37.5-25 Capsule] Venlafaxine HCl [Effexor XR] 150 mg PO DAILY 07/01/24 07/01/24 History Venlafaxine HCl [Effexor] 75 mg PO DAILY 07/01/24 07/01/24 History Vitamin C/Biotin [Hair, Skin and 1 tab PO DAILY 07/01/24 07/01/24 History Nails Chew] oxyCODONE-APAP 10-325MG [Percocet 1 tab PO TID 07/01/24 07/01/24 History 10-325 mg] tiZANidine [Zanaflex] 8 mg PO TID 07/01/24 07/01/24 History Allergies Allergy/AdvReac Type Severity Reaction Status Date / Time latex Allergy Unknown Rash/Hives Verified 07/01/24 10:42 animal dander Allergy Unknown Verified 07/01/24 10:42 bee venom protein (honey bee) Allergy Swelling Verified 07/01/24 10:42 Surgical - Exam Vital Signs Pulse Pulse Ox 112 H 99 07/01/24 08:31 07/01/24 08:31 Results - Labs 07/02/24 06:32 07/02/24 06:32
--- NOTE | 2024-07-03 15:22 | P.PN ---
Subjective Progress Note Date: 06/26/24 Principal diagnosis: Chest acute hypoxic respiratory failure possible interstitial lung disease, rule out congestive heart failure On 07/02/2024, the patient is being seen in consult regarding shortness of breath. The patient reports that she has been having shortness of breath since January 2024. She has been told to have pneumonias on several occasions by various health practitioners and the patient was treated accordingly. The patient came into the emergency department at [facility] yesterday complaining of coughing with sputum production a few days duration. Based on that, the patient was given a chest x-ray and the chest x-ray was consistent with cardiomegaly and pulmonary edema. Following that, the patient was given a CAT scan of the chest that was reported to be possible pulmonary infiltrates. Based on that, the patient got transferred to [facility] for further evaluation. The patient is currently on 2 L of oxygen by nasal cannula. Blood work was reviewed and the patient has a white cell count of 20 with a hemoglobin of 11 and a platelet count of 547. BUN is 29 with a creatinine of 0.66 and a sodium levels at 141. Procalcitonin level is at 0.22. Calcium level is at 10.1 and the Legionella urine antigen was negative. The patient was started on IV Zosyn. Hemodynamically stable. Oxygenation is also stable and the patient re harlan on 2 to 3 L/min nasal cannula. No fever documented here in the hospital. According to records from [facility], the viral screen was negative. Her lactic acid level was at 1.8. D-dimer was at 1.05. proBNP level was 30.2. Troponins were negative. Her CTA of the chest showed bilateral infiltrates with groundglass pulmonary opacities. Patient denies having any history of congestio n heart failure. She has undergone previous gastric sleeve for morbid obesity and the patient has lost more than 200 pounds. She has hypertension hyperlipidemia and degenerative arthritis. She has obstructive sleep apnea and she has not utilized CPAP therapy. She is morbidly obese with a body mass index of 40. Patient was seen today on 07/03/2024, feels a bit better, has intermittent cough, O2 sat is 96% on 2 L, remains on empiric antibiotics and diuretics, definite improvement according to the patient which speaks in favor of pulmonary edema rather than interstitial lung disease assuming the patient is truly improving since her admission. Could not visualize the CT of the chest which was done at [place], may have to consider another CT of the chest in our institution. WBC count is 20.9 hemoglobin 11 electrolytes are normal renal profile is normal procalcitonin level is normal BNP level is a bit elevated at 1730 Legionella antigen is negative rheumatoid screen is negative LAMIN is negative Objective - Vital Signs Vital signs: Vital Signs Temp 98.3 F 07/03/24 07:44 Pulse 85 07/03/24 13:23 Resp 20 07/03/24 11:43 BP 125/83 07/03/24 11:43 Pulse Ox 96 07/03/24 11:43 FiO2 50 07/01/24 08:34 Intake & Output 07/02/24 07/03/24 07/03/24 18:59 06:59 18:59 Intake Total 1320 420 480 Output Total 900 Balance 420 420 480 Weight 101.6 kg Intake: Oral 1320 420 480 Output: Urine 900 Other: Voiding Method Toilet Toilet Toilet # Voids 1 1 1 - Exam General: Revealed 49-year-old female in no distress, on 2 L nasal cannula Head: Atraumatic, normocephalic Head: atraumatic, normocephalic, symmetric Mouth: Moist mucous membranes, Cardiovascular: S1 S2 tachy. No murmur. Lungs: Diminished breath sounds at the bases no rhonchi no wheezes Ext: No clubbing edema or cyanosis Neuro: Alert oriented x 3 no gross focal deficit Psych: Normal mood affect and no mental status examination Skin: No rashes - Labs CBC & Chem 7: 07/02/24 06:32 07/02/24 06:32 Assessment and Plan Assessment: Impression Acute hypoxic respiratory failure, possible interstitial lung disease, atypical pneumonia, diastolic congestive heart failure, however considering the patient is improving within a relatively short period of time I favor congestive heart failure History of obstructive sleep apnea syndrome History of gastric sleeve for morbid obesity in 2012 Leukocytosis Degenerative joint disease GERD without esophagitis Benign essential hypertension Dyslipidemia Recommendation: Consider repeat CT of the chest Definitely repeat chest x-ray in a.m. Continue antibiotics in the meantime and continue diuretics Echocardiogram is pending Continue bronchodilators and methylprednisolone Will continue to follow Time with Patient: Less than 30
--- NOTE | 2024-07-03 15:38 | P.PN ---
Subjective Progress Note Date: 07/03/24 49 year old F with PMH of Asthma, GERD, HLD, HTN, Anxiety and Depression presents to [facility] as a transfer from [place]. Patient reports shortness of breath with cough productive of yellow-green sputum ongoing for the past day. Patient reports battling recurrent PNA since January. She also reports to right sided pleuritic pain, and posttussive emesis. Smoker for the past 34 years, quit 1.5 years ago. In the ED she underwent extensive evaluation. She was placed on BiPAP for about an hour and was able to be transitioned to nasal cannula. Vital signs now BP 166/80, HR 102, RR 20, T 97.6F, 96% on 2L NC. Lab analysis significant for WBC 17.12, Hg 9.9. K 3.2. Mag 1.6. Trop < 0.1. BNP 30.2. D-Dimer 1.05. COVID, RSV, Flu neg. Lactic 1.8. ABG pH 7.41. EKG sinus tachycardia. CTA chest bilateral infiltrates and dilated esophagus. She is admitted for asthma exacerbation with Pulmonary on consult. Started on bronchodilators and SoluMedrol. 07/02 Patient was seen and examined. Breathing 60% improved. She reports difficulty swallowing. Previous gastric bypass with Dr. Vanessa. Recently underwent MBS and EGD in [facility] in October, not sure of results, never followed up. Reports history of pulmonary abscess. 93% on 3L NC. CBC and CMP significant for WBC 20.95, RBC 3.96, Hg 11, Hct 35.1, Plt 547, BUN 29, glu 146. Legionella Ag neg. CXR shows persistent bilateral infiltrates. 07/03 Patient was seen and examined. Breathing 75% improved. ST recommends MBS. Surgery recommends upper GI. Discussed with Dr. Araya, obtain CT chest. BNP 1730. Pro-ken 0.22. RF < 15. LAMIN negative. General: no distress, appears at stated age Derm: warm, dry Head: atraumatic, normocephalic, symmetric Mouth: no lip lesion, mucus membranes moist Cardiovascular: S1 S2 reg. No murmur. Lungs: Decreased BS bilaterally, no accessory muscle use Ext: no gross muscle atrophy, no edema, no contractures Neuro: No focal neurologic deficits. Psych: Alert and oriented. Based on my assessment of this patient, this patient meets a high complexity level of care. Acute hypoxic respiratory failure secondary to asthma exacerbation + PNA: Concerns for aspiration given severe GERD. DuoNeb QID scheduled and PRN for SOB/wheezing. Symbicort 2 INH BID. SoluMedrol 40 mg IV TID. RF < 15. LAMIN negative. Singulair 10 mg PO QHS. Spiriva 2 INH QD. Continue Zosyn 3.75 g IV TID. Pro-ken 0.22. BNP 1730, Echocardiogram pending. CT chest pending. Telemetry monitoring. Supplemental O2 to maintain O2 sat > 92%. Pulmonary on board. Sepsis likely related to PNA: Management as above. Pro-ken as above. Follow Sputum Cx, BCx. Telemetry monitoring. Dysphagia: ST consulted to evaluate swallow, MBS ordered. Upper GI ordered by surgery. Aspiration precautions. Elevated HOB. ST and Surgery on board. Normocytic anemia with Thrombocytosis: Likely iron def. anemia. No signs of active bleeding. Monitor. Elevated D-Dimer: CTA neg for PE. Dyslipidemia: Zetia 10 mg PO QHS. Depression and Anxiety: Prozac 40 mg PO QD. Seroquel 100 mg PO QHS. Effexor 225 mg PO QD. GERD: Protonix 40 mg PO BID. Hypertension: Triamterene-HCTZ 37.5-25 mg PO QD. Resolved: HypoMg, HypoK CODE STATUS: FULL CODE DVT Prophylaxis: Lovenox SQ GI Prophylaxis: Protonix PO Designated medical POA if patient is not able to make medical decisions for the mselves: George, Son I have reviewed the following audit consultant notes: Surgery, Pulmonary. I have reviewed the results of the following tests: BNP, Pro-ken, RF, LAMIN. I have ordered the following tests: Sputum Cx, Echo pending. CT chest ordered. MBS ordered. Upper GI ordered. I have discussed the care of this patient with the following independent historian: I have independently interpreted the following test below: I have discussed the management of this patient with the following physician: Minna Araya and Lizabeth CARROLL. Objective - Vital Signs Vital signs: Vital Signs Temp 98.3 F 07/03/24 07:44 Pulse 85 07/03/24 13:23 Resp 20 07/03/24 11:43 BP 125/83 07/03/24 11:43 Pulse Ox 96 07/03/24 11:43 FiO2 50 07/01/24 08:34 Intake & Output 07/02/24 07/03/24 07/03/24 18:59 06:59 18:59 Intake Total 1320 420 480 Output Total 900 Balance 420 420 480 Weight 101.6 kg Intake: Oral 1320 420 480 Output: Urine 900 Other: Voiding Method Toilet Toilet Toilet # Voids 1 1 1 - Labs CBC & Chem 7: 07/02/24 06:32 07/02/24 06:32
--- NOTE | 2024-07-03 16:30 | CT ---
INDICATION: Patient age:Female; 49 years old; Reason for study: ILD; PHH. COMPARISON: Chest radiograph 07/02/2024, outside institution CTA chest 07/01/2024 is nondiagnostic for review. TECHNIQUE: Multiple thin axial images were obtained through the chest at selected intervals. Prone and supine in spiratory along with supine expiratory images were submitted for review. Please note that due to inte rval acquisition images as defined by high-resolution CT protocol the entire lung parenchyma is not e valuated, therefore small nodular densities may not be visualized. Evaluation of vascular structures , viscera and lymphatics is limited due to lack of intravenous contrast administration. One or more C T dose reduction strategies were utilized during this examination. Total DLP 1894.7 mGycm. FINDINGS: LUNGS: Diffuse patchy tree-in-bud nodular opacities throughout the lungs. Scattered regions of subple ural groundglass opacities. Regions of linear scarring and atelectasis within the right upper lobe, r ight middle lobe, left lower lobe. There is no evidence of honeycombing or architectural distortion i n the lungs. No bronchiectasis. LARGE AIRWAYS: Central airways are patent. No dynamic airway collapse on expiratory imaging. PLEURA: No pleural effusion or thickening. HEART AND PERICARDIUM: Heart is normal in size. There is no pericardial effusion. No significant kenneth nary artery calcifications. MEDIASTINUM AND MARISA: No mediastinal or hilar lymphadenopathy or soft tissue mass. VESSELS: The thoracic aorta is normal in course and caliber. CHEST WALL AND DIAPHRAGM: Normal. LOWER NECK: Normal. UPPER ABDOMEN: Postsurgical changes from gastric sleeve with mildly distended mid to distal fluid-valeriano led esophagus. MUSCULOSKELETAL: No acute fracture. Multilevel degenerative changes of the spine. Partial visualizat ion of anterior cervical fusion hardware and thoracolumbar fusion hardware. IMPRESSION: 1. Scattered regions of tree-in-bud nodular opacities and groundglass opacities likely representing an atypical pneumonia/bronchiolitis. Mild pulmonary fibrotic changes without evidence of honeycombing . 2. Postsurgical changes from gastric sleeve with mildly distended mid to distal fluid-filled esophagu s. Consider further evaluation with esophagram. [facility], , 07/03/2024 4:27 PM
--- NOTE | 2024-07-03 16:35 | CA ---
Transthoracic Echo Report Name: Reema Ruiz Age: 49 Gender: F : 1975 Exam Date: 07/03/2024 13:18 Exam Location: [facility] [facility] Ht (in): 63 Wt (lb): 224 Ordering Physician: Fermín Clayton MD Attending/Referring Phys: Dry Color Mixer Enedelia Zapata RDCS Procedure CPT: Indications: Possible CHF Cardiac Hx: Technical Quality: Fair Contrast 1: Total Dose (mL): Contrast 2: Total Dose (mL): MEASUREMENTS (Male / Female) Normal Values 2D ECHO LV Diastolic Diameter PLAX 4.5 cm 4.2 - 5.9 / 3.9 - 5.3 cm LV Systolic Diameter PLAX 3.0 cm IVS Diastolic Thickness 1.6 cm 0.6 - 1.0 / 0.6 - 0.9 cm LVPW Diastolic Thickness 1.5 cm 0.6 - 1.0 / 0.6 - 0.9 cm LV Relative Wall Thickness 0.7 RV Internal Dim ED PLAX 3.4 cm LA Systolic Diameter LX 3.8 cm 3.0 - 4.0 / 2.7 - 3.8 cm LV Diastolic Volume MOD BP 105.4 cm??? 67 - 155 / 56 - 104 cm??? LV Systolic Volume MOD BP 27.0 cm??? 22 - 58 / 19 - 49 cm??? LV Ejection Fraction MOD BP 74.4 % >= 55 % LV Cardiac Index MOD BP 3454.6 cm???/min???m??? LV Diastolic Volume MOD 4C 92.9 cm??? LV Systolic Volume MOD 4C 29.0 cm??? LV Ejection Fraction MOD 4C 68.8 % LV Cardiac Index MOD 4C 2818.5 cm???/min???m??? LV Diastolic Length 4C 7.6 cm LV Systolic Length 4C 6.2 cm LV Diastolic Volume MOD 2C 111.8 cm??? LV Systolic Volume MOD 2C 25.9 cm??? LV Ejection Fraction MOD 2C 76.9 % LV Cardiac Index MOD 2C 3787.0 cm???/min???m??? LV Diastolic Length 2C 8.2 cm LV Systolic Length 2C 6.1 cm LA Volume 52.8 cm??? 18 - 58 / 22 - 52 cm??? LA Volume Index 24.3 cm???/m??? 16 - 28 cm???/m??? M-MODE Aortic Root Diameter MM 2.9 cm AV Cusp Separation MM 2.4 cm DOPPLER AV Peak Velocity 221.9 cm/s AV Peak Gradient 19.7 mmHg MV Area PHT 2.6 cm??? Mitral E Point Velocity 87.5 cm/s Mitral A Point Velocity 107.6 cm/s Mitral E to A Ratio 0.8 MV Deceleration Time 291.1 ms TR Peak Velocity 286.0 cm/s TR Peak Gradient 32.7 mmHg Right Ventricular Systolic Press 35.3 mmHg FINDINGS Left Ventricle Left ventricular ejection fraction is estimated at 55-60 %. Left ventricular cavity size normal. Severely increased septal wall thickness. Moderately increased posterior wall thickness. Mildly increased left ventricular diastolic volume. Normal left ventricular wall motion. Right Ventricle Mild right ventricular dilatation. Mild pulmonary hypertension. Right Atrium Normal right atrial size. No right atrial thrombus or mass seen. Left Atrium Normal left atrial size. No left atrial thrombus or mass present. Mitral Valve Structurally normal mitral valve. No mitral stenosis, regurgitation or prolapse. Aortic Valve Trileaflet aortic valve. No aortic valve stenosis or regurgitation. Tricuspid Valve Structurally normal tricuspid valve. Mild tricuspid regurgitation. Pulmonic Valve Structurally normal pulmonic valve. No pulmonic regurgitation. Pericardium No pericardial effusion. Aorta Normal size aortic root and proximal ascending aorta. CONCLUSIONS Left ventricular ejection fraction 55 to 60% Moderate to severely increased left ventricular wall thickness Mild tricuspid regurgitation No pericardial effusion Previewed by: Dr. Pradip Schofield DO (Electronically Signed) Final Date: 03 July 2024 16:34
--- NOTE | 2024-07-04 12:01 | P.PN ---
Subjective Progress Note Date: 07/04/24 49 year old F with PMH of Asthma, GERD, HLD, HTN, Anxiety and Depression presents to [facility] as a transfer from [place]. Patient reports shortness of breath with cough productive of yellow-green sputum ongoing for the past day. Patient reports battling recurrent PNA since January. She also reports to right sided pleuritic pain, and posttussive emesis. Smoker for the past 34 years, quit 1.5 years ago. In the ED she underwent extensive evaluation. She was placed on BiPAP for about an hour and was able to be transitioned to nasal cannula. Vital signs now BP 166/80, HR 102, RR 20, T 97.6F, 96% on 2L NC. Lab analysis significant for WBC 17.12, Hg 9.9. K 3.2. Mag 1.6. Trop < 0.1. BNP 30.2. D-Dimer 1.05. COVID, RSV, Flu neg. Lactic 1.8. ABG pH 7.41. EKG sinus tachycardia. CTA chest bilateral infiltrates and dilated esophagus. She is admitted for asthma exacerbation with Pulmonary on consult. Started on bronchodilators and SoluMedrol. 07/02 Patient was seen and examined. Breathing 60% improved. She reports difficulty swallowing. Previous gastric bypass with Dr. Vanessa. Recently underwent MBS and EGD in [place] back in October, not sure of results, never followed up. Reports history of pulmonary abscess. 93% on 3L NC. CBC and CMP significant for WBC 20.95, RBC 3.96, Hg 11, Hct 35.1, Plt 547, BUN 29, glu 146. Legionella Ag neg. CXR shows persistent bilateral infiltrates. 07/03 Patient was seen and examined. Breathing 75% improved. ST recommends MBS. Surgery recommends upper GI. Discussed with Dr. Araya, obtain CT chest. BNP 1730. Pro-ken 0.22. RF < 15. LAMIN negative. 07/04 Patient was seen and examined. Breathing much better. CT chest shows scattered tree-in-bud nodular opacities and groundglass opacities likely atypical PNA/bronchiolitis with mild pulmonary fibrotic changes along with mildly distended mid to distal fluid filled esophagus. Echo shows EF 55-60% with mod-severe LVH. Pulmonary plans on bronchoscopy tomorrow. Upper GI is still pending. General: no distress, appears at stated age Derm: warm, dry Head: atraumatic, normocephalic, symmetric Mouth: no lip lesion, mucus membranes moist Cardiovascular: S1 S2 reg. No murmur. Lungs: Decreased BS bilaterally, no accessory muscle use Ext: no gross muscle atrophy, no edema, no contractures Neuro: No focal neurologic deficits. Psych: Alert and oriented. Based on my assessment of this patient, this patient meets a high complexity level of care. Acute hypoxic respiratory failure secondary to asthma exacerbation + PNA: Concerns for aspiration given severe GERD. DuoNeb QID scheduled and PRN for SO B/wheezing. Symbicort 2 INH BID. SoluMedrol 40 mg IV TID. RF < 15. LAMIN negative. Singulair 10 mg PO QHS. Spiriva 2 INH QD. Continue Zosyn 3.75 g IV TID. Pro-ken 0.22. BNP 1730, Echocardiogram and CT chest as above. Telemetry monitoring. Supplemental O2 to maintain O2 sat > 92%. Pulmonary on board, plans for bronchoscopy tomorrow. Sepsis likely related to PNA: Management as above. Pro-ken as above. Follow Sputum Cx, BCx. Telemetry monitoring. Dysphagia: ST consulted to evaluate swallow, MBS ordered. Upper GI ordered by surgery. Aspiration precautions. Elevated HOB. ST and Surgery on board. Normocytic anemia with Thrombocytosis: Likely iron def. anemia. No signs of active bleeding. Monitor. Elevated D-Dimer: CTA neg for PE. Dyslipidemia: Zetia 10 mg PO QHS. Depression and Anxiety: Prozac 40 mg PO QD. Seroquel 100 mg PO QHS. Effexor 225 mg PO QD. GERD: Protonix 40 mg PO BID. Hypertension: Triamterene-HCTZ 37.5-25 mg PO QD. Resolved: HypoMg, HypoK CODE STATUS: FULL CODE DVT Prophylaxis: Lovenox SQ GI Prophylaxis: Protonix PO Designated medical POA if patient is not able to make medical decisions for themselves: George, Son I have reviewed the following plan consultant notes: I have reviewed the results of the following tests: CT chest, Echo. I have ordered the following tests: Sputum Cx pending. MBS ordered. Upper GI ordered. I have discussed the care of this patient with the following independent historian: I have independently interpreted the following test below: I have discussed the management of this patient with the following physician: Objective - Vital Signs Vital signs: Vital Signs Temp 98.2 F 07/04/24 07:22 Pulse 80 07/04/24 11:54 Resp 20 07/04/24 11:00 BP 135/75 07/04/24 11:00 Pulse Ox 98 07/04/24 11:00 FiO2 50 07/01/24 08:34 Intake & Output 07/03/24 07/04/24 07/04/24 18:59 06:59 18:59 Intake Total 480 180 Balance 480 180 Weight 102 kg Intake: Oral 480 180 Other: Voiding Method Toilet Toilet Toilet # Voids 1 1 # Bowel Movements 1 - Labs CBC & Chem 7: 07/02/24 06:32 07/02/24 06:32
--- NOTE | 2024-07-04 12:37 | P.PN ---
Subjective Progress Note Date: 07/04/24 On 07/02/2024, the patient is being seen in consult regarding shortness of breath. The patient reports that she has been having shortness of breath since January 2024. She has been told to have pneumonias on several occasions by various health practitioners and the patient was treated accordingly. The patient came into the emergency department at [facility] yesterday complaining of coughing with sputum production a few days duration. Based on that, the patient was given a chest x-ray and the chest x-ray was consistent with cardiomegaly and pulmonary edema. Following that, the patient was given a CAT scan of the chest that was reported to be possible pulmonary infiltrates. Based on that, the patient got transferred to [facility] for further evaluation. The patient is currently on 2 L of oxygen by nasal cannula. Blood work was reviewed and the patient has a white cell count of 20 with a hemoglobin of 11 and a platelet count of 547. BUN is 29 with a creatinine of 0.66 and a sodium levels at 141. Procalcitonin level is at 0.22. Calcium level is at 10.1 and the Legionella urine antigen was negative. The patient was started on IV Zosyn. Hemodynamically stable. Oxygenation is also stable and the patient remains on 2 to 3 L/min nasal cannula. No fever documented here in the hospital. According to records from [facility], the viral screen was negative. Her lactic acid level was at 1.8. D-dimer was at 1.05. proBNP level was 30.2. Troponins were negative. Her CTA of the chest showed bilateral infiltrates with groundglass pulmonary opacities. Patient denies having any history of congestion heart failure. She has undergone previous gastric sleeve for morbid obesity and the patient has lost more than 200 pounds. She has hypertension hyperlipidemia and degenerative arthritis. She has obstructive sleep apnea and she has not utilized CPAP therapy. She is morbidly obese with a body mass index of 40. Patient was seen today on 07/03/2024, feels a bit better, has intermittent cough, O2 sat is 96% on 2 L, remains on empiric antibiotics and diuretics, definite improvement according to the patient which speaks in favor of pulmonary edema rather than interstitial lung disease assuming the patient is truly improving since her admission. Could not visualize the CT of the chest which was done at [place], may have to consider another CT of the chest in our institution. WBC count is 20.9 hemoglobin 11 electrolytes are normal renal profile is normal procalcitonin level is normal BNP level is a bit elevated at 1730 Legionella antigen is negative rheumatoid screen is negative LAMIN is negative The patient is seen today July 04, 2024 in follow-up on the selective care unit. She is currently sitting up in bed. Awake and alert in no acute distress. Still with some loose cough and congestion. Maintaining O2 saturations in the upper 90s on 2 L/min per nasal cannula. She has been afebrile. Hemodynamically stable. CT scan of the chest reveals scattered regions of tree-in-bud nodular opacities and groundglass opacities likely representing an atypical pneumonia. Mild pulmonary fibrotic changes without evidence of honeycombing. Postsurgical changes from gastric sleeve with mildly distended mid to distal fluid-filled esophagus. She is continued on DuoNeb inhalations, Symbicort, Solu-Medrol, Spiriva. Lovenox for DVT prophylaxis. Antibiotics in the form of Zosyn. Objective - Vital Signs Vital signs: Vital Signs Temp 98.2 F 07/04/24 07:22 Pulse 80 07/04/24 12:05 Resp 20 07/04/24 11:00 BP 135/75 07/04/24 11:00 Pulse Ox 98 07/04/24 11:00 FiO2 50 07/01/24 08:34 Intake & Output 07/03/24 07/04/24 07/04/24 18:59 06:59 18:59 Intake Total 480 180 Balance 480 180 Weight 102 kg Intake: Oral 480 180 Other: Voiding Method Toilet Toilet Toilet # Voids 1 1 # Bowel Movements 1 - Exam GENERAL EXAM: Alert, obese, pleasant 49-year-old female, on 2 L nasal cannula, fairly comfortable in no apparent distress. HEAD: Normocephalic. EYES: Normal reaction of pupils, equal size. NOSE: Clear with pink turbinates. THROAT: No erythema or exudates. NECK: No masses, no JVD. CHEST: No chest wall deformity. LUNGS: Equal air entry with bilateral scattered rhonchi. CVS: S1 and S2 normal with no audible murmur, regular rhythm. ABDOMEN: No hepatosplenomegaly, normal bowel sounds, no guarding or rigidity. SPINE: No scoliosis or deformity SKIN: No rashes CENTRAL NERVOUS SYSTEM: No focal deficits, tone is normal in all 4 extremities. EXTREMITIES: There is no peripheral edema. No clubbing, no cyanosis. Peripheral pulses are intact. - Labs CBC & Chem 7: 07/02/24 06:32 07/02/24 06:32 Assessment and Plan Assessment: Acute hypoxic respiratory failure, possible interstitial lung disease, atypical pneumonia, diastolic congestive heart failure, however considering the patient is improving within a relatively short period of time I favor congestive heart failure History of obstructive sleep apnea syndrome History of gastric sleeve for morbid obesity in 2011 Leukocytosis Degenerative joint disease GERD without esophagitis Benign essential hypertension Dyslipidemia Plan: The patient was seen and evaluated CT scan of the chest reviewed Medications reviewed She has been slow to progress Continue DuoNeb and elations Continue Symbicort, Spiriva, Singulair Continue Solu-Medrol Continue Zosyn Lovenox for DVT prophylaxis Will plan for bronchoscopy with BAL tomorrow The patient verbalized understanding and is agreeable to the plan I have personally seen and examined the patient, performed the documentation and the assessment and plan as written. Number of minutes spent on the visit: 10 Dictation was produced using [employer] dictation software. Please excuse any gra mmatical, word or spelling errors.
--- NOTE | 2024-07-04 14:09 | P.PN ---
Subjective Progress Note Date: 07/04/24 SURGICAL PROGRESS NOTE CHIEF COMPLAINT: Shortness of breath HISTORY OF PRESENT ILLNESS: Surgical service following regards to patient's dysphagia. Patient is able to eat small amounts of food. She is scheduled for modified barium swallow today. CT scan chest reporting pneumonia. Mild pulmonary fibrotic changes. Mildly distended mid to distal fluid-filled esophagus. Afebrile. PHYSICAL EXAM: VITAL SIGNS: Reviewed. GENERAL: Well-developed in no acute distress. ABDOMEN: Soft. Nondistended. Nontender. NEUROLOGIC: Alert and oriented. Cranial nerves II through XII grossly intact. ASSESSMENT: 1. Dysphagia 2. History of sleeve gastrectomy PLAN: -MBS scheduled for today -Patient scheduled for upper GI tomorrow -Pulmonary service planning bronchoscopy tomorrow -Scheduled for EGD on with Dr. Vanessa Physician Termite Treater note has been reviewed by physician. Signing provider agrees with the documented findings, assessment, and plan of care. Objective - Vital Signs Vital signs: Vital Signs Temp 98.2 F 07/04/24 07:22 Pulse 83 07/04/24 13:04 Resp 20 07/04/24 11:00 BP 135/75 07/04/24 11:00 Pulse Ox 98 07/04/24 11:00 FiO2 50 07/01/24 08:34 Intake & Output 07/03/24 07/04/24 07/04/24 18:59 06:59 18:59 Intake Total 480 180 Balance 480 180 Weight 102 kg Intake: Oral 480 180 Other: Voiding Method Toilet Toilet Toilet # Voids 1 1 # Bowel Movements 1 - Labs CBC & Chem 7: 07/02/24 06:32 07/02/24 06:32
--- NOTE | 2024-07-04 14:25 | FL ---
EXAMINATION TYPE: FL barium swallow w video DATE OF EXAM: 07/04/2024 MODIFIED SWALLOW / DEGLUTITION STUDY CLINICAL HISTORY: Dysphagia. History of gastric sleeve surgery 3 years earlier. TECHNIQUE: Deglutition study is performed utilizing thin liquid barium, barium thick pudding, and ba rium coated cracker. 1 minute 21 seconds of fluoro time and 0 images obtained. Total dose area prod uct (DAP) in uGy*m?, mGy*cm? (or similar): n/p COMPARISON: None. FINDINGS: The oral and pharyngeal phases show satisfactory initiation and propagation with all modali ties tested. Normal mastication is seen with solid modalities tested. There is no evidence of penet ration or aspiration with any modality tested. No significant pharyngeal residue was appreciated. IMPRESSION: No aspiration observed. Please refer to speech therapist notes for further details if ne cessary. [facility], , 07/04/2024 2:23 PM
--- NOTE | 2024-07-05 10:43 | FL ---
EXAMINATION TYPE: FL UGI w esophagus DATE OF EXAM: 07/05/2024 LIMITED UGI: CLINICAL INDICATION: Female, 49 years old with history of dysphagia, reflux-like symptoms, pain, coug h, ongoing recurrent pneumonia. History of gastric sleeve surgery in the past. TECHNIQUE: Limited esophagram is performed utilizing thin liquid barium. A total of 86 seconds of fl uoroscopic time was utilized during procedure and 69 images obtained. Total DAP = 1980.48 COMPARISON: Chest CT [address] abdomen and pelvis December 26, 2017 FINDINGS: The patient swallowed contrast without difficulty or delay. There is redemonstration 2 lev el anterior fusion plate in the cervical spine. Esophageal peristalsis and motility are within brandi l limits. There is subsequent pooling of contrast in the lower thorax with delayed flow through the diaphragmatic hiatus. In reviewing recent CT there is small hiatal hernia now present. There is at le ast moderate delay in flow at level of the diaphragmatic hiatus likely proximal anastomosis into the gastric sleeve. There is adequate filling of the sleeve without observable flow through the distal an astomosis. Patient has symptoms of dysphagia without vomiting. There is no evidence of contrast extra vasation to suggest leak. IMPRESSION: There is evidence of gastric sleeve surgery redemonstrated. There is new small fixed hiat al hernia containing portion of the gastric sleeve. There is moderate to severe obstruction at level of diaphragmatic hiatus. Consider direct visualization to further evaluate. [facility], , 07/05/2024 10:41 AM
--- NOTE | 2024-07-05 12:00 | P.PN ---
Subjective Progress Note Date: 07/05/24 49 year old F with PMH of Asthma, GERD, HLD, HTN, Anxiety and Depression presents to [facility] as a transfer from [place]. Patient reports shortness of breath with cough productive of yellow-green sputum ongoing for the past day. Patient reports battling recurrent PNA since January. She also reports to right sided pleuritic pain, and posttussive emesis. Smoker for the past 34 years, quit 1.5 years ago. In the ED she underwent extensive evaluation. She was placed on BiPAP for about an hour and was able to be transitioned to nasal cannula. Vital signs now BP 166/80, HR 102, RR 20, T 97.6F, 96% on 2L NC. Lab analysis significant for WBC 17.12, Hg 9.9. K 3.2. Mag 1.6. Trop < 0.1. BNP 30.2. D-Dimer 1.05. COVID, RSV, Flu neg. Lactic 1.8. ABG pH 7.41. EKG sinus tachycardia. CTA chest bilateral infiltrates and dilated esophagus. She is admitted for asthma exacerbation with Pulmonary on consult. Started on bronchodilators and SoluMedrol. 07/02 Patient was seen and examined. Breathing 60% improved. She reports difficulty swallowing. Previous gastric bypass with Dr. Vanessa. Recently underwent MBS and EGD in [place] back in October, not sure of results, never followed up. Reports history of pulmonary abscess. 93% on 3L NC. CBC and CMP significant for WBC 20.95, RBC 3.96, Hg 11, Hct 35.1, Plt 547, BUN 29, glu 146. Legionella Ag neg. CXR shows persistent bilateral infiltrates. 07/03 Patient was seen and examined. Breathing 75% improved. ST recommends MBS. Surgery recommends upper GI. Discussed with Dr. Araya, obtain CT chest. BNP 1730. Pro-ken 0.22. RF < 15. LAMIN negative. 07/04 Patient was seen and examined. Breathing much better. CT chest shows scattered tree-in-bud nodular opacities and groundglass opacities likely atypical PNA/bronchiolitis with mild pulmonary fibrotic changes along with mildly distended mid to distal fluid filled esophagus. Echo shows EF 55-60% with mod-severe LVH. Pulmonary plans on bronchoscopy tomorrow. Upper GI is still pending. 07/05 Patient was seen and examined. Breathing stable. Currently on 2L NC. Upper GI completed. MBS shows no aspiration. Antibotics include Zosyn 3.75g IV TID. Bronchoscopy likely to be done tomorrow along with EGD. General: no distress, appears at stated age Derm: warm, dry Head: atraumatic, normocephalic, symmetric Mouth: no lip lesion, mucus membranes moist Cardiovascular: S1 S2 reg. No murmur. Lungs: End expiratory wheezing bilaterally, no accessory muscle use Ext: no gross muscle atrophy, no edema, no contractures Neuro: No focal neurologic deficits. Psych: Alert and oriented. Based on my assessment of this patient, this patient meets a high complexity level of care. Acute hypoxic respiratory failure secondary to asthma exacerbation + PNA: Concerns for aspiration given severe GERD. DuoNeb QID scheduled and PRN for SOB/wheezing. Symbicort 2 INH BID. SoluMedrol 40 mg IV TID. RF < 15. LAMIN neg ative. Singulair 10 mg PO QHS. Spiriva 2 INH QD. Continue Zosyn 3.75 g IV TID. Pro-ken 0.22. BNP 1730, Echocardiogram and CT chest as above. Telemetry monitoring. Supplemental O2 to maintain O2 sat > 92%. Pulmonary on board, plans for bronchoscopy tomorrow. Sepsis likely related to PNA: Management as above. Pro-ken as above. Follow Sputum Cx, BCx. Telemetry monitoring. Dysphagia: ST consulted to evaluate swallow, MBS shows no aspiration. Upper GI completed this morning. Aspiration precautions. Elevated HOB. Plans for EGD in the AM. ST and Surgery on board. Normocytic anemia with Thrombocytosis: Likely iron def. anemia. No signs of active bleeding. Monitor. Elevated D-Dimer: CTA neg for PE. Dyslipidemia: Zetia 10 mg PO QHS. Depression and Anxiety: Prozac 40 mg PO QD. Seroquel 100 mg PO QHS. Effexor 225 mg PO QD. GERD: Protonix 40 mg PO BID. Hypertension: Triamterene-HCTZ 37.5-25 mg PO QD. Resolved: HypoMg, HypoK CODE STATUS: FULL CODE DVT Prophylaxis: Lovenox SQ GI Prophylaxis: Protonix PO Designated medical POA if patient is not able to make medical decisions for themselves: George, Son I have reviewed the following [employer] product consultant notes: Surgery, Pulmonary. I have reviewed the results of the following tests: MBS. I have ordered the following tests: I have discussed the care of this patient with the following independent historian: I have independently interpreted the following test below: I have discussed the management of this patient with the following physician: Objective - Vital Signs Vital signs: Vital Signs Temp 98.2 F 07/05/24 08:00 Pulse 80 07/05/24 09:41 Resp 18 07/05/24 08:00 BP 170/93 07/05/24 08:00 Pulse Ox 98 07/05/24 09:28 FiO2 50 07/01/24 08:34 Intake & Output 07/04/24 07/05/24 07/05/24 18:59 06:59 18:59 Intake Total 450 10 Balance 450 10 Weight 102.8 kg Intake: IV 10 Invasive Line 3 10 Oral 450 Other: Voiding Method Toilet Toilet # Voids 1 1 - Labs CBC & Chem 7: 07/02/24 06:32 07/02/24 06:32
--- NOTE | 2024-07-05 12:20 | P.PN ---
Subjective Progress Note Date: 07/05/24 Principal diagnosis: Chest acute hypoxic respiratory failure possible interstitial lung disease, rule out congestive heart failure On 07/02/2024, the patient is being seen in consult regarding shortness of breath. The patient reports that she has been having shortness of breath since January 2024. She has been told to have pneumonias on several occasions by various health practitioners and the patient was treated accordingly. The patient came into the emergency department at [facility] yesterday complaining of coughing with sputum production a few days duration. Based on that, the patient was given a chest x-ray and the chest x-ray was consistent with cardiomegaly and pulmonary edema. Following that, the patient was given a CAT scan of the chest that was reported to be possible pulmonary infiltrates. Based on that, the patient got transferred to [facility] for further evaluation. The patient is currently on 2 L of oxygen by nasal cannula. Blood work was reviewed and the patient has a white cell count of 20 with a hemoglobin of 11 and a platelet count of 547. BUN is 29 with a creatinine of 0.66 and a sodium levels at 141. Procalcitonin level is at 0.22. Calcium level is at 10.1 and the Legionella urine antigen was negative. The patient was started on IV Zosyn. Hemodynamically stable. Oxygenation is also stable and the patient re harlan on 2 to 3 L/min nasal cannula. No fever documented here in the hospital. According to records from [facility], the viral screen was negative. Her lactic acid level was at 1.8. D-dimer was at 1.05. proBNP level was 30.2. Troponins were negative. Her CTA of the chest showed bilateral infiltrates with groundglass pulmonary opacities. Patient denies having any history of congestio n heart failure. She has undergone previous gastric sleeve for morbid obesity and the patient has lost more than 200 pounds. She has hypertension hyperlipidemia and degenerative arthritis. She has obstructive sleep apnea and she has not utilized CPAP therapy. She is morbidly obese with a body mass index of 40. Patient was seen today on 07/03/2024, feels a bit better, has intermittent cough, O2 sat is 96% on 2 L, remains on empiric antibiotics and diuretics, definite improvement according to the patient which speaks in favor of pulmonary edema rather than interstitial lung disease assuming the patient is truly improving since her admission. Could not visualize the CT of the chest which was done at [place], may have to consider another CT of the chest in our institution. WBC count is 20.9 hemoglobin 11 electrolytes are normal renal profile is normal procalcitonin level is normal BNP level is a bit elevated at 1730 Legionella antigen is negative rheumatoid screen is negative LAMIN is negative Patient was seen today on 07/05/2024, patient continues to have intermittent cough, she was supposed to undergo bronchoscopy and BAL today, however the patient had an upper GI/esophagram which showed significant narrowing in the distal esophagus, and the patient is supposed to have EGD tomorrow. Bronchoscopy was postponed till tomorrow, will likely perform bronchoscopy on this patient after her EGD tomorrow. In the meantime continues to have intermittent episodes of cough, no fever no chills no hemoptysis and no chest pain. Continues to have leukocytosis with WBC count of 20.9 hemoglobin 11 electrolytes are normal renal profile is normal Objective - Vital Signs Vital signs: Vital Signs Temp 98.2 F 07/05/24 08:00 Pulse 80 07/05/24 09:41 Resp 18 07/05/24 08:00 BP 170/93 07/05/24 08:00 Pulse Ox 98 07/05/24 09:28 FiO2 50 07/01/24 08:34 Intake & Output 07/04/24 07/05/24 07/05/24 18:59 06:59 18:59 Intake Total 450 10 Balance 450 10 Weight 102.8 kg Intake: IV 10 Invasive Line 3 10 Oral 450 Other: Voiding Method Toilet Toilet # Voids 1 1 - Exam General: Revealed 49-year-old female in no distress, on 2 L nasal cannula Head: Atraumatic, normocephalic Head: atraumatic, normocephalic, symmetric Mouth: Moist mucous membranes, Cardiovascular: S1 S2 tachy. No murmur. Lungs: Diminished breath sounds at the bases minimal crackles no wheezing Ext: No clubbing edema or cyanosis Neuro: Alert oriented x 3 no gross focal deficit Psych: Normal mood affect and no mental status examination Skin: No rashes - Labs CBC & Chem 7: 07/02/24 06:32 07/02/24 06:32 Assessment and Plan Assessment: Impression Acute hypoxic respiratory failure, suspect chronic pneumonia secondary to chronic microaspiration History of obstructive sleep apnea syndrome History of gastric sleeve for morbid obesity in 2012 Leukocytosis Degenerative joint disease GERD without esophagitis Benign essential hypertension Dyslipidemia Recommendation: Continue antibiotics, Reviewed results of the esophagogram patient will need EGD Will postpone bronchoscopy till tomorrow and the patient will undergo BAL of the right side. Continue antibiotics in the meantime Echocardiogram, showed mild pulmonary hypertension otherwise unremarkable. Continue bronchodilators and methylprednisolone Will continue to follow Time with Patient: Less than 30
[2024-07-05] MEDS: IPRATROPIUM-ALBUTEROL 3 ML NEB INHALATION PRN (12:56)
--- NOTE | 2024-07-05 13:43 | P.PN ---
Subjective Progress Note Date: 07/05/24 SURGICAL PROGRESS NOTE CHIEF COMPLAINT: Shortness of breath HISTORY OF PRESENT ILLNESS: Surgical service following regards to patient's dysphagia. Patient had MBS study completed with no evidence of aspiration. Upper GI there is a new small fixed hiatal hernia containing portion of the gastric sleeve. There is moderate to severe obstruction at level of diaphragmatic hiatus. Consider direct visualization. PHYSICAL EXAM: VITAL SIGNS: Reviewed. GENERAL: Well-developed in no acute distress. ABDOMEN: Soft. Nondistended. Nontender. NEUROLOGIC: Alert and oriented. Cranial nerves II through XII grossly intact. ASSESSMENT: 1. Dysphagia. Upper GI reports moderate to severe obstruction at level of diaphragmatic hiatus 2. History of sleeve gastrectomy PLAN: -Patient scheduled for EGD tomorrow with Dr. Vanessa -Pulmonary service planning bronchoscopy tomorrow - N.p.o. after midnight Physician [employer] note has been reviewed by physician. Signing provider agrees with the documented findings, assessment, and plan of care. Objective - Vital Signs Vital signs: Vital Signs Temp 98.2 F 07/05/24 08:00 Pulse 78 07/05/24 13:05 Resp 18 07/05/24 08:00 BP 170/93 07/05/24 08:00 Pulse Ox 98 07/05/24 09:28 FiO2 50 07/01/24 08:34 Intake & Output 07/04/24 07/05/24 07/05/24 18:59 06:59 18:59 Intake Total 450 10 120 Balance 450 10 120 Weight 102.8 kg Intake: IV 10 Invasive Line 3 10 Oral 450 120 Other: Voiding Method Toilet Toilet # Voids 1 1 - Labs CBC & Chem 7: 07/02/24 06:32 07/02/24 06:32
[2024-07-05] MEDS: ALBUTEROL NEBULIZED 2.5 MG/3 ML INHALATION SCH (16:09)
[2024-07-06 08:12] LABS: Basophils # (A) 0.04 10*3/uL (0.00-0.10); Basophils % (A) 0.2 %; Eosinophils # (A) 0.04 10*3/uL (0.04-0.35); Eosinophils % (A) 0.2 %; HCT 33.6 % (37.2-46.3); HGB 10.2 g/dL (12.0-15.0); Lymphocytes # (A) 2.23 10*3/uL (0.90-5.00); Lymphocytes % (A) 13.9 %; MCH 27.1 pg (27.0-32.0); MCHC 30.4 g/dL (32.0-37.0); MCV 89.4 fL (80.0-97.0); Mean Platelet Volume 9.1 fL (9.5-12.2); Monocytes # (A) 0.63 10*3/uL (0.20-1.00); Monocytes % (A) 3.9 %; Neutrophils # (A) 12.42 10*3/uL (1.80-7.70); Neutrophils % (A) 77.4 %; Platelet Count 414 10*3/uL (140-440); RBC 3.76 10*6/uL (4.10-5.20); RDW 15.2 % (11.5-14.5); WBC 16.07 10*3/uL (4.50-10.00)
[2024-07-06 08:31] LABS: African American GFR (CKD) >90 (>60 ml/min/1.73 sqM); Anion Gap 9 mmol/L; Blood Urea Nitrogen 33 mg/dL (7-17); Calcium 9.8 mg/dL (8.4-10.2); Carbon Dioxide 27 mmol/L (22-30); Chloride 103 mmol/L (98-107); Glucose 110 mg/dL (74-99); Non-African American GFR(CKD) >90 (>60 ml/min/1.73 sqM); Potassium 5.5 mmol/L (3.5-5.1); Sodium 139 mmol/L (137-145)
--- NOTE | 2024-07-06 11:21 | P.PN ---
Subjective Progress Note Date: 07/06/24 49 year old F with PMH of Asthma, GERD, HLD, HTN, Anxiety and Depression presents to [facility] as a transfer from [place]. Patient reports shortness of breath with cough productive of yellow-green sputum ongoing for the past day. Patient reports battling recurrent PNA since January. She also reports to right sided pleuritic pain, and posttussive emesis. Smoker for the past 34 years, quit 1.5 years ago. In the ED she underwent extensive evaluation. She was placed on BiPAP for about an hour and was able to be transitioned to nasal cannula. Vital signs now BP 166/80, HR 102, RR 20, T 97.6F, 96% on 2L NC. Lab analysis significant for WBC 17.12, Hg 9.9. K 3.2. Mag 1.6. Trop < 0.1. BNP 30.2. D-Dimer 1.05. COVID, RSV, Flu neg. Lactic 1.8. ABG pH 7.41. EKG sinus tachycardia. CTA chest bilateral infiltrates and dilated esophagus. She is admitted for asthma exacerbation with Pulmonary on consult. Started on bronchodilators, Rocephin/Azithromycin (which was switched to Zosyn) and SoluMedrol. Pulmonary consulted. Legionella Ag neg. BNP 1730. Pro-ken 0.22. RF < 15. LAMIN negative. CT chest shows scattered tree-in-bud nodular opacities and groundglass opacities likely atypical PNA/bronchiolitis with mild pulmonary fibrotic changes along with mildly distended mid to distal fluid filled esophagus. Echo shows EF 55-60% with mod-severe LVH. Patient reported concerns of dysphagia, given history of gastric bypass with Dr. Vanessa, surgery was also consulted. She underwent MBS which showed no aspiration. 07/06 Patient was seen and examined. Breathing stable. Reports anxiety. Currently on 2L NC. Upper GI shows moderate to severe obstruction at the level of diaphgramatic hiatus. Antibotics include Zosyn 3.75g IV TID. Bronchoscopy likely to be done today along with EGD. CBC and BMP significant for WBC 16.07, RBC 3.76, Hg 10.2, Hct 33.6, K 5.5, BUN 33, glu 110. General: no distress, appears at stated age Derm: warm, dry Head: atraumatic, normocephalic, symmetric Mouth: no lip lesion, mucus membranes moist Cardiovascular: S1 S2 reg. No murmur. Lungs: Decreased BS bilaterally, no accessory muscle use Ext: no gross muscle atrophy, no edema, no contractures Neuro: No focal neurologic deficits. Psych: Alert and oriented. Based on my assessment of this patient, this patient meets a high complexity level of care. Acute hypoxic respiratory failure secondary to asthma exacerbation + PNA: Concerns for aspiration given severe GERD. DuoNeb QID scheduled and PRN for SOB/wheezing. Symbicort 2 INH BID. SoluMedrol 40 mg IV TID. RF < 15. LAMIN negative. Singulair 10 mg PO QHS. Spiriva 2 INH QD. Continue Zosyn 3.75 g IV TID. Pro-ken 0.22. BNP 1730, Echocardiogram and CT chest as above. Telemetry monitoring. Supplemental O2 to maintain O2 sat > 92%. Pulmonary on board, plans for bronchoscopy today. Sepsis likely related to PNA: Management as above. Pro-ken as above. Follow S putum Cx, BCx. Telemetry monitoring. Dysphagia: ST consulted to evaluate swallow, MBS shows no aspiration. Upper GI shows moderate to severe obstruction at the level of diaphgramatic hiatus. Aspiration precautions. Elevated HOB. Plans for EGD today. ST and Surgery on board. Hyperkalemia: Mild elevation. Repeat at 4PM. Normocytic anemia with Thrombocytosis: Likely iron def. anemia. No signs of acti ve bleeding. Monitor. Elevated D-Dimer: CTA neg for PE. Dyslipidemia: Zetia 10 mg PO QHS. Depression and Anxiety: Prozac 40 mg PO QD. Seroquel 100 mg PO QHS. Effexor 225 mg PO QD. GERD: Protonix 40 mg PO BID. Hypertension: Triamterene-HCTZ 37.5-25 mg PO QD. Resolved: HypoMg, HypoK CODE STATUS: FULL CODE DVT Prophylaxis: Lovenox SQ GI Prophylaxis: Protonix PO Designated medical POA if patient is not able to make medical decisions for themselves: Enoc Vazquez I have reviewed the following trial consultant notes: Surgery, Pulmonary. I have reviewed the results of the following tests: Upper GI. CBC. BMP. I have ordered the following tests: K at 4 PM. I have discussed the care of this patient with the following independent historian: RN. I have independently interpreted the following test below: I have discussed the management of this patient with the following physician: Objective - Vital Signs Vital signs: Vital Signs Temp 98.2 F 07/06/24 08:00 Pulse 69 07/06/24 08:00 Resp 18 07/06/24 08:00 BP 118/65 07/06/24 08:00 Pulse Ox 100 07/06/24 08:00 FiO2 50 07/01/24 08:34 Intake & Output 07/05/24 07/06/24 07/06/24 18:59 06:59 18:59 Intake Total 240 20 Balance 240 20 Weight 103 kg Intake: IV 20 Invasive Line 4 20 Oral 240 Other: Voiding Method Toilet # Voids 1 - Labs CBC & Chem 7: 07/06/24 07:31 07/06/24 07:31 Labs: Abnormal Lab Results - Last 24 Hours (Table) 07/06/24 07/06/24 Range/Units 07:31 07:31 WBC 16.07 H (4.50-10.00) 10*3/uL RBC 3.76 L (4.10-5.20) 10*6/uL Hgb 10.2 L (12.0-15.0) g/dL Hct 33.6 L (37.2-46.3) % MCHC 30.4 L (32.0-37.0) g/dL MPV 9.1 L (9.5-12.2) fL Immature Gran # 0.71 H (0.00-0.04) 10*3/uL Neutrophils # 12.42 H (1.80-7.70) 10*3/uL Potassium 5.5 H (3.5-5.1) mmol/L BUN 33 H (7-17) mg/dL Glucose 110 H (74-99) mg/dL
[2024-07-06] MEDS ORDERED: PROPOFOL 10 MG/ML 20 ML VIAL IV ONE (12:57)
[2024-07-06] MEDS: IV FLUID CONTINUATION 1,000 ML IV ONE ×2 (13:03→13:25)
--- NOTE | 2024-07-06 13:14 | P.OP ---
Date of Procedure: 07/06/24 Preoperative Diagnosis: Dysphagia Postoperative Diagnosis: Esophagitis No evidence of gastric sleeve stricture Procedure(s) Performed: EGD Anesthesia: MAC Surgeon: William Vanessa Pathology: other (Esophagus) Condition: stable Disposition: PACU Description of Procedure: The patient was placed on the endoscopy table in the lateral position she received IV sedation. The gas was placed oropharynx and passed in the esophagus and then into the stomach. The scope was advanced through the stomach into the pylorus and then through the pylorus into the 1st and 2nd portion of the duodenum. The 1st and 2nd portion duodenum appeared normal. Scope was then brought back to the antrum this appeared normal. There was no evidence of any gastric sleeve stricture. There was no obstruction seen the gastric sleeve. The GE junction was at 39 cm. The distal esophagus appeared inflamed. The appearance was suspicious for Shani infection. This area was biopsied. The proximal esophagus appeared normal. Scope withdrawn from the patient.
--- NOTE | 2024-07-06 13:20 | P.PN ---
Subjective Progress Note Date: 07/06/24 On 07/02/2024, the patient is being seen in consult regarding shortness of breath. The patient reports that she has been having shortness of breath since January 2024. She has been told to have pneumonias on several occasions by various health practitioners and the patient was treated accordingly. The patient came into the emergency department at [facility] yesterday complaining of coughing with sputum production a few days duration. Based on that, the patient was given a chest x-ray and the chest x-ray was consistent with cardiomegaly and pulmonary edema. Following that, the patient was given a CAT scan of the chest that was reported to be possible pulmonary infiltrates. Based on that, the patient got transferred to [facility] for further evaluation. The patient is currently on 2 L of oxygen by nasal cannula. Blood work was reviewed and the patient has a white cell count of 20 with a hemoglobin of 11 and a platelet count of 547. BUN is 29 with a creatinine of 0.66 and a sodium levels at 141. Procalcitonin level is at 0.22. Calcium level is at 10.1 and the Legionella urine antigen was negative. The patient was started on IV Zosyn. Hemodynamically stable. Oxygenation is also stable and the patient remains on 2 to 3 L/min nasal cannula. No fever documented here in the hospital. According to records from [facility], the viral screen was negative. Her lactic acid level was at 1.8. D-dimer was at 1.05. proBNP level was 30.2. Troponins were negative. Her CTA of the chest showed bilateral infiltrates with groundglass pulmonary opacities. Patient denies having any history of congestion heart failure. She has undergone previous gastric sleeve for morbid obesity and the patient has lost more than 200 pounds. She has hypertension hyperlipidemia and degenerative arthritis. She has obstructive sleep apnea and she has not utilized CPAP therapy. She is morbidly obese with a body mass index of 40. Patient was seen today on 07/03/2024, feels a bit better, has intermittent cough, O2 sat is 96% on 2 L, remains on empiric antibiotics and diuretics, definite improvement according to the patient which speaks in favor of pulmonary edema rather than interstitial lung disease assuming the patient is truly improving since her admission. Could not visualize the CT of the chest which was done at [place], may have to consider another CT of the chest in our institution. WBC count is 20.9 hemoglobin 11 electrolytes are normal renal profile is normal procalcitonin level is normal BNP level is a bit elevated at 1730 Legionella antigen is negative rheumatoid screen is negative LAMIN is negative The patient is seen today July 04, 2024 in follow-up on the selective care unit. She is currently sitting up in bed. Awake and alert in no acute distress. Still with some loose cough and congestion. Maintaining O2 saturations in the upper 90s on 2 L/min per nasal cannula. She has been afebrile. Hemodynamically stable. CT scan of the chest reveals scattered regions of tree-in-bud nodular opacities and groundglass opacities likely representing an atypical pneumonia. Mild pulmonary fibrotic changes without evidence of honeycombing. Postsurgical changes from gastric sleeve with mildly distended mid to distal fluid-filled esophagus. She is continued on DuoNeb inhalations, Symbicort, Solu-Medrol, Spiriva. Lovenox for DVT prophylaxis. Antibiotics in the form of Zosyn. The patient is seen today July 06, 2024 in follow-up on the selective care unit. She is currently sitting up in bed. Awake and alert in no acute distress. Denies any worsening shortness of breath, cough or congestion. Continue O2 saturations up to 100% on 2 L/min per nasal cannula. She has been afebrile. Hemodynamically stable. Plan is for EGD and bronchoscopy today. She remains on DuoNeb inhalations, Symbicort, Spiriva and Solu-Medrol. Remains on Zosyn. Lovenox for DVT prophylaxis. Objective - Vital Signs Vital signs: Vital Signs Temp 98.2 F 07/06/24 12:00 Pulse 83 07/06/24 12:00 Resp 17 07/06/24 12:00 BP 157/92 07/06/24 12:00 Pulse Ox 99 07/06/24 12:00 FiO2 50 07/01/24 08:34 Intake & Output 07/05/24 07/06/24 07/06/24 18:59 06:59 18:59 Intake Total 240 20 10 Balance 240 20 10 Weight 103 kg Intake: IV 20 10 Invasive Line 4 20 10 Oral 240 Other: Voiding Method Toilet # Voids 1 2 - Exam GENERAL EXAM: Alert, 49-year-old female, on 2 L nasal cannula, comfortable in no apparent distress. HEAD: Normocephalic. EYES: Normal reaction of pupils, equal size. NOSE: Clear with pink turbinates. THROAT: No erythema or exudates. NECK: No masses, no JVD. CHEST: No chest wall deformity. LUNGS: Equal air entry with bilateral scattered rhonchi. CVS: S1 and S2 normal with no audible murmur, regular rhythm. ABDOMEN: No hepatosplenomegaly, normal bowel sounds, no guarding or rigidity. SPINE: No scoliosis or deformity SKIN: No rashes CENTRAL NERVOUS SYSTEM: No focal deficits, tone is normal in all 4 extremities. EXTREMITIES: There is no peripheral edema. No clubbing, no cyanosis. Peripheral pulses are intact. - Labs CBC & Chem 7: 07/06/24 07:31 07/06/24 07:31 Labs: Abnormal Lab Results - Last 24 Hours (Table) 07/06/24 07/06/24 Range/Units 07:31 07:31 WBC 16.07 H (4.50-10.00) 10*3/uL RBC 3.76 L (4.10-5.20) 10*6/uL Hgb 10.2 L (12.0-15.0) g/dL Hct 33.6 L (37.2-46.3) % MCHC 30.4 L (32.0-37.0) g/dL MPV 9.1 L (9.5-12.2) fL Immature Gran # 0.71 H (0.00-0.04) 10*3/uL Neutrophils # 12.42 H (1.80-7.70) 10*3/uL Potassium 5.5 H (3.5-5.1) mmol/L BUN 33 H (7-17) mg/dL Glucose 110 H (74-99) mg/dL Assessment and Plan Assessment: Acute hypoxic respiratory failure, possible interstitial lung disease, atypical pneumonia, diastolic congestive heart failure, however considering the patient is improving within a relatively short period of time favor congestive heart failure History of obstructive sleep apnea syndrome History of gastric sleeve for morbid obesity in 2011 Leukocytosis Degenerative joint disease GERD without esophagitis Benign essential hypertension Dyslipidemia Plan: The patient was seen and evaluated Medications and labs reviewed Continue DuoNeb inhalations Continue Symbicort, Spiriva, Singulair Continue Solu-Medrol Continue Zosyn Lovenox for DVT prophylaxis Plan is for EGD and bronchoscopy with BAL today The patient verbalized understanding and is agreeable to the plan I have personally seen and examined the patient, performed the documentation and the assessment and plan as written. Number of minutes spent on the visit: 10 Dictation was produced using [employer] dictation software. Please excuse any grammatical, word or spelling errors.
--- NOTE | 2024-07-06 13:45 | P.PN ---
Subjective Progress Note Date: 07/06/24 SURGICAL PROGRESS NOTE CHIEF COMPLAINT: Shortness of breath HISTORY OF PRESENT ILLNESS: Surgical service following regards to patient's dysphagia. Patient had MBS study completed with no evidence of aspiration. Upper GI there is a new small fixed hiatal hernia containing portion of the gastric sleeve. There is moderate to severe obstruction at level of diaphragmatic hiatus. Consider direct visualization. Scheduled for EGD today. Vital stable. WBC is down from 20-16 Hgb 10.2 PHYSICAL EXAM: VITAL SIGNS: Reviewed. GENERAL: Well-developed in no acute distress. ABDOMEN: Soft. Nondistended. Nontender. NEUROLOGIC: Alert and oriented. Cranial nerves II through XII grossly intact. ASSESSMENT: 1. Dysphagia. Upper GI reports moderate to severe obstruction at level of diaphragmatic hiatus 2. History of sleeve gastrectomy PLAN: -Patient scheduled for EGD today -Pulmonary service planning bronchoscopy today Physician Production Floater note has been reviewed by physician. Signing provider agrees with the documented findings, assessment, and plan of care. Objective - Vital Signs Vital signs: Vital Signs Temp 98.2 F 07/06/24 12:00 Pulse 83 07/06/24 12:00 Resp 17 07/06/24 12:00 BP 157/92 07/06/24 12:00 Pulse Ox 99 07/06/24 12:00 FiO2 50 07/01/24 08:34 Intake & Output 07/05/24 07/06/24 07/06/24 18:59 06:59 18:59 Intake Total 240 20 310 Balance 240 20 310 Weight 103 kg Intake: IV 20 310 Invasive Line 4 20 10 Oral 240 Other: Voiding Method Toilet # Voids 1 2 - Labs CBC & Chem 7: 07/06/24 07:31 07/06/24 07:31 Labs: Abnormal Lab Results - Last 24 Hours (Table) 07/06/24 07/06/24 Range/Units 07:31 07:31 WBC 16.07 H (4.50-10.00) 10*3/uL RBC 3.76 L (4.10-5.20) 10*6/uL Hgb 10.2 L (12.0-15.0) g/dL Hct 33.6 L (37.2-46.3) % MCHC 30.4 L (32.0-37.0) g/dL MPV 9.1 L (9.5-12.2) fL Immature Gran # 0.71 H (0.00-0.04) 10*3/uL Neutrophils # 12.42 H (1.80-7.70) 10*3/uL Potassium 5.5 H (3.5-5.1) mmol/L BUN 33 H (7-17) mg/dL Glucose 110 H (74-99) mg/dL
[2024-07-06] MEDS: FLUCONAZOLE IN NACL,ISO-OSM 200 MG in SALINE 1 100ML.BAG IVPB SCH (14:07)
[2024-07-06] MEDS: LORazepam 1 MG TAB PO PRN (17:55)
[2024-07-06 20:26] LABS: Appearance,BF Blood Tinged (Clear); RBC, Body Fluid 4860 /UL (0-2000)
[2024-07-06] MEDS: LORazepam 1 MG/0.5 ML VIAL IV STA ×2 (20:59→21:08)
[2024-07-07 06:45] LABS: HCT 36.4 % (37.2-46.3); HGB 11.3 g/dL (12.0-15.0); MCH 27.6 pg (27.0-32.0); MCV 88.8 fL (80.0-97.0); Mean Platelet Volume 9.4 fL (9.5-12.2); Platelet Count 458 10*3/uL (140-440); RDW 15.1 % (11.5-14.5); WBC 20.07 10*3/uL (4.50-10.00)
[2024-07-07 07:00] LABS: ALT 20 U/L (4-34); AST 16 U/L (14-36); African American GFR (CKD) >90 (>60 ml/min/1.73 sqM); Albumin 3.9 g/dL (3.5-5.0); Alkaline Phosphatase 38 U/L (38-126); Anion Gap 10 mmol/L; Blood Urea Nitrogen 34 mg/dL (7-17); Calcium 10.1 mg/dL (8.4-10.2); Carbon Dioxide 26 mmol/L (22-30); Chloride 103 mmol/L (98-107); Glucose 138 mg/dL (74-99); Non-African American GFR(CKD) >90 (>60 ml/min/1.73 sqM); Sodium 139 mmol/L (137-145); Total Bilirubin 0.4 mg/dL (0.2-1.3); Total Protein 7.1 g/dL (6.3-8.2)
[2024-07-07 09:07] LABS: Nucleated Cells, Body Fluid 1620 /UL
--- NOTE | 2024-07-07 10:51 | PCN ---
PROCEDURE NOTE PROCEDURES PERFORMED: Bronchoscopy, bronchoalveolar lavage of the right middle lobe and right lower lobe. PREOPERATIVE DIAGNOSIS: Atypical pneumonia and abnormal chest x-ray, abnormal CT of the chest. POSTOPERATIVE DIAGNOSIS: Atypical pneumonia and abnormal chest x-ray, abnormal CT of the chest. ANESTHESIA USED: The patient had IV conscious sedation. PROCEDURE IN DETAIL: The patient was placed in supine position. She already had a bite block in place. Nasal cannula was applied. We monitored her O2 saturation continuously, blood pressure was intermittently monitored, and cardiac rhythm was continuously monitored. After adequate IV conscious sedation, the bronchoscope was advanced through the bite block down to the area of the vocal cords. There was significant thrush noted in the area around and over the vocal cords. Then, lidocaine was applied over the vocal cords. Bronchoscope was advanced further down and as we went down to the trachea, there was evidence of copious amount of purulent secretions which were suctioned. Then, thorough examination was done of the right upper lobe, right middle lobe, right lower lobe, left upper lobe lingula, and left lower lobe. There was evidence of purulent secretions throughout. Then, the bronchoscope was wedged in the right middle lobe and at one point in the right lower lobe, and bronchoalveolar lavage was done of both lobes. All the secretions from other areas were suctioned and cleared from the airways. Procedure was well tolerated. No complication. Fluid obtained was sent for different diagnostic studies including routine cultures, AFB cultures, and fungal cultures. MMODL / IJN: [id number] /
[2024-07-07 11:27] VITALS: BMI 40.0
--- NOTE | 2024-07-07 11:52 | P.PN ---
Subjective Progress Note Date: 07/07/24 49 year old F with PMH of Asthma, GERD, HLD, HTN, Anxiety and Depression presents to [facility] as a transfer from [place]. Patient reports shortness of breath with cough productive of yellow-green sputum ongoing for the past day. Patient reports battling recurrent PNA since January. She also reports to right sided pleuritic pain, and posttussive emesis. Smoker for the past 34 years, quit 1.5 years ago. In the ED she underwent extensive evaluation. She was placed on BiPAP for about an hour and was able to be transitioned to nasal cannula. Vital signs now BP 166/80, HR 102, RR 20, T 97.6F, 96% on 2L NC. Lab analysis significant for WBC 17.12, Hg 9.9. K 3.2. Mag 1.6. Trop < 0.1. BNP 30.2. D-Dimer 1.05. COVID, RSV, Flu neg. Lactic 1.8. ABG pH 7.41. EKG sinus tachycardia. CTA chest bilateral infiltrates and dilated esophagus. She is admitted for asthma exacerbation with Pulmonary on consult. Started on bronchodilators, Rocephin/Azithromycin (which was switched to Zosyn) and SoluMedrol. Pulmonary consulted. Legionella Ag neg. BNP 1730. Pro-ken 0.22. RF < 15. LAMIN negative. CT chest shows scattered tree-in-bud nodular opacities and groundglass opacities likely atypical PNA/bronchiolitis with mild pulmonary fibrotic changes along with mildly distended mid to distal fluid filled esophagus. Echo shows EF 55-60% with mod-severe LVH. Underwent bronchoscopy with BAL showing copious secretions which was sent for culture. Patient reported concerns of dysphagia, given history of gastric bypass with Dr. Vanessa, surgery was also consulted. She underwent MBS which showed no a spiration. Underwent EGD showing esophagitis concerning for candidal infection, started on Diflucan. 07/07 Patient was seen and examined. Breathing stable. Currently on 2L NC. Antibotics include Zosyn 3.75g IV TID (D5) and Diflucan 200 mg IV QD (D2). CBC and BMP significant for WBC 20.07, Hg 11.3, Hct 36.4, BUN 34, glu 138. General: no distress, appears at stated age Derm: warm, dry Head: atraumatic, normocephalic, symmetric Mouth: no lip lesion, mucus membranes moist Cardiovascular: S1 S2 reg. No murmur. Lungs: Decreased BS bilaterally, no accessory muscle use Ext: no gross muscle atrophy, no edema, no contractures Neuro: No focal neurologic deficits. Psych: Alert and oriented. Based on my assessment of this patient, this patient meets a high complexity level of care. Acute hypoxic respiratory failure secondary to asthma exacerbation + PNA: DuoNeb QID scheduled and PRN for SOB/wheezing. Symbicort 2 INH BID. SoluMedrol 40 mg IV TID. RF < 15. LAMIN and Legionella negative. Singulair 10 mg PO QHS. Spiriva 2 INH QD. Continue Zosyn 3.75 g IV TID (D5). Pro-ken 0.22. BNP 1730, Echocardiogram and CT chest as above. Telemetry monitoring. Supplemental O2 to maintain O2 sat > 92%. Status post bronch with BAL, cultures pending. Pulmonary on board. Sepsis likely related to PNA: Management as above. Pro-ken as above. Follow BAL cultures. Telemetry monitoring. Dysphagia due to Esophagitis: ST consulted to evaluate swallow, MBS shows no aspiration. Upper GI shows moderate to severe obstruction at the level of diaphgramatic hiatus. EGD shows esophagitis concerning for candidal infection. Diflucan 200 mg IV QD (D2). Aspiration precautions. Elevated HOB. ST and Surgery on board. Normocytic anemia with Thrombocytosis: Likely iron def. anemia. No signs of active bleeding. Monitor. Elevated D-Dimer: CTA neg for PE. Dyslipidemia: Zetia 10 mg PO QHS. Depression and Anxiety: Prozac 40 mg PO QD. Seroquel 100 mg PO QHS. Effexor 225 mg PO QD. GERD: Protonix 40 mg PO BID. Hypertension: Triamterene-HCTZ 37.5-25 mg PO QD. Resolved: HypoMg, HypoK, HyperK Anticipate DC in 1-2 days after BAL cultures finalize. CODE STATUS: FULL CODE DVT Prophylaxis: Lovenox SQ GI Prophylaxis: Protonix PO Designated medical POA if patient is not able to make medical decisions for themselves: George, Son I have reviewed the following party plan sales consultant notes: Surgery, Pulmonary, EGD, bronchoscopy. I have reviewed the results of the following tests: CBC. BMP. I have ordered the following tests: I have discussed the care of this patient with the following independent historian: I have independently interpreted the following test below: I have discussed the management of this patient with the following physician: Objective - Vital Signs Vital signs: Vital Signs Temp 98.4 F 07/07/24 08:00 Pulse 94 07/07/24 08:00 Resp 20 07/07/24 08:00 BP 131/70 07/07/24 08:00 Pulse Ox 97 07/07/24 08:37 FiO2 50 07/01/24 08:34 Intake & Output 07/06/24 07/07/24 07/07/24 18:59 06:59 18:59 Intake Total 438 10 236 Balance 438 10 236 Weight 102.6 kg 102.6 kg Intake: IV 320 10 Invasive Line 4 20 10 Oral 118 236 Other: Voiding Method Toilet # Voids 2 2 - Labs CBC & Chem 7: 07/07/24 06:11 07/07/24 06:11 Labs: Abnormal Lab Results - Last 24 Hours (Table) 07/06/24 07/07/24 07/07/24 Range/Units 13:09 06:11 06:11 WBC 20.07 H (4.50-10.00) 10*3/uL Hgb 11.3 L (12.0-15.0) g/dL Hct 36.4 L (37.2-46.3) % MCHC 31.0 L (32.0-37.0) g/dL Plt Count 458 H (140-440) 10*3/uL MPV 9.4 L (9.5-12.2) fL BUN 34 H (7-17) mg/dL Glucose 138 H (74-99) mg/dL Fluid Appearance Blood Tinged A (Clear) Fluid RBC 4860 H (0-2000) /uL Microbiology - Last 24 Hours (Table) 07/06/24 13:09 Gram Stain - Preliminary Pleural Fluid Body Fluid Culture - Preliminary Presumptive Staph aureus
--- NOTE | 2024-07-07 12:46 | P.PN ---
Subjective Progress Note Date: 07/07/24 SURGICAL PROGRESS NOTE CHIEF COMPLAINT: Shortness of breath HISTORY OF PRESENT ILLNESS: Surgical service following regards to patient's dysphagia. Patient is status post EGD that had revealed esophagitis. Appearance of the esophagus suspicious for Shani infection. No evidence of gastric sleeve stricture. Patient reports tolerating regular diet. But she does report that pills do stick. Afebrile. Wbc 20. Patient does have atypical ammonia and had bronchoscopy yesterday. Patient seen and examined with Dr. Vanessa PHYSICAL EXAM: VITAL SIGNS: Reviewed. GENERAL: Well-developed in no acute distress. ABDOMEN: Soft. Nondistended. NEUROLOGIC: Alert and oriented. Cranial nerves II through XII grossly intact. ASSESSMENT: 1. Dysphagia status post EGD with findings of esophagitis and possible Shani infection of the esophagus. No evidence of gastric sleeve stricture 2. History of sleeve gastrectomy PLAN: -Patient started on Diflucan for possible Shani of the esophagus - Patient can be discharged from surgical standpoint when medically cleared - Surgical service will sign off. Please call with any questions or concerns. Physician Host/Hostess Head note has been reviewed by physician. Signing provider agrees with the documented findings, assessment, and plan of care. Objective - Vital Signs Vital signs: Vital Signs Temp 98.4 F 07/07/24 08:00 Pulse 94 07/07/24 08:00 Resp 20 07/07/24 08:00 BP 131/70 07/07/24 08:00 Pulse Ox 97 07/07/24 08:37 FiO2 50 07/01/24 08:34 Intake & Output 07/06/24 07/07/24 07/07/24 18:59 06:59 18:59 Intake Total 438 10 236 Balance 438 10 236 Weight 102.6 kg 102.6 kg Intake: IV 320 10 Invasive Line 4 20 10 Oral 118 236 Other: Voiding Method Toilet # Voids 2 2 - Labs CBC & Chem 7: 07/07/24 06:11 07/07/24 06:11 Labs: Abnormal Lab Results - Last 24 Hours (Table) 07/06/24 07/07/24 07/07/24 Range/Units 13:09 06:11 06:11 WBC 20.07 H (4.50-10.00) 10*3/uL Hgb 11.3 L (12.0-15.0) g/dL Hct 36.4 L (37.2-46.3) % MCHC 31.0 L (32.0-37.0) g/dL Plt Count 458 H (140-440) 10*3/uL MPV 9.4 L (9.5-12.2) fL BUN 34 H (7-17) mg/dL Glucose 138 H (74-99) mg/dL Fluid Appearance Blood Tinged A (Clear) Fluid RBC 4860 H (0-2000) /uL Microbiology - Last 24 Hours (Table) 07/06/24 13:09 Gram Stain - Preliminary Pleural Fluid Body Fluid Culture - Preliminary Presumptive Staph aureus
[2024-07-07] MEDS ORDERED: VANCOMYCIN IV PER PHARMACY 1 EACH MISC MISCELLANE PRN (14:22)
--- NOTE | 2024-07-07 14:22 | P.PN ---
Subjective Progress Note Date: 07/07/24 Principal diagnosis: Chest acute hypoxic respiratory failure possible interstitial lung disease, rule out congestive heart failure On 07/02/2024, the patient is being seen in consult regarding shortness of breath. The patient reports that she has been having shortness of breath since January 2024. She has been told to have pneumonias on several occasions by various health practitioners and the patient was treated accordingly. The patient came into the emergency department at [facility] yesterday complaining of coughing with sputum production a few days duration. Based on that, the patient was given a chest x-ray and the chest x-ray was consistent with cardiomegaly and pulmonary edema. Following that, the patient was given a CAT scan of the chest that was reported to be possible pulmonary infiltrates. Based on that, the patient got transferred to [facility] for further evaluation. The patient is currently on 2 L of oxygen by nasal cannula. Blood work was reviewed and the patient has a white cell count of 20 with a hemoglobin of 11 and a platelet count of 547. BUN is 29 with a creatinine of 0.66 and a sodium levels at 141. Procalcitonin level is at 0.22. Calcium level is at 10.1 and the Legionella urine antigen was negative. The patient was started on IV Zosyn. Hemodynamically stable. Oxygenation is also stable and the patient re harlan on 2 to 3 L/min nasal cannula. No fever documented here in the hospital. According to records from [facility], the viral screen was negative. Her lactic acid level was at 1.8. D-dimer was at 1.05. proBNP level was 30.2. Troponins were negative. Her CTA of the chest showed bilateral infiltrates with groundglass pulmonary opacities. Patient denies having any history of congestio n heart failure. She has undergone previous gastric sleeve for morbid obesity and the patient has lost more than 200 pounds. She has hypertension hyperlipidemia and degenerative arthritis. She has obstructive sleep apnea and she has not utilized CPAP therapy. She is morbidly obese with a body mass index of 40. Patient was seen today on 07/03/2024, feels a bit better, has intermittent cough, O2 sat is 96% on 2 L, remains on empiric antibiotics and diuretics, definite improvement according to the patient which speaks in favor of pulmonary edema rather than interstitial lung disease assuming the patient is truly improving since her admission. Could not visualize the CT of the chest which was done at [place], may have to consider another CT of the chest in our institution. WBC count is 20.9 hemoglobin 11 electrolytes are normal renal profile is normal procalcitonin level is normal BNP level is a bit elevated at 1730 Legionella antigen is negative rheumatoid screen is negative LAMIN is negative Patient was seen today on 07/05/2024, patient continues to have intermittent cough, she was supposed to undergo bronchoscopy and BAL today, however the patient had an upper GI/esophagram which showed significant narrowing in the distal esophagus, and the patient is supposed to have EGD tomorrow. Bronchoscopy was postponed till tomorrow, will likely perform bronchoscopy on this patient after her EGD tomorrow. In the meantime continues to have intermittent episodes of cough, no fever no chills no hemoptysis and no chest pain. Continues to have leukocytosis with WBC count of 20.9 hemoglobin 11 electrolytes are normal renal profile is normal Seen today on 07/07/2024, minimal cough intermittently, feeling a bit better, remains on antibiotics, patient is also on Diflucan, BAL is showing presumptive Staph aureus. Patient is on Zosyn however if this turns out to be MRSA patient needs to be transition to vancomycin in the meantime continue Zosyn. Clinically the patient is feeling better breathing easier, continues to have leukocytosis with WBC of 20.7 hemoglobin 11.3 electrolytes are normal Objective - Vital Signs Vital signs: Vital Signs Temp 98.4 F 07/07/24 08:00 Pulse 94 07/07/24 08:00 Resp 20 07/07/24 08:00 BP 131/70 07/07/24 08:00 Pulse Ox 97 07/07/24 08:37 FiO2 50 07/01/24 08:34 Intake & Output 07/06/24 07/07/24 07/07/24 18:59 06:59 18:59 Intake Total 438 10 236 Balance 438 10 236 Weight 102.6 kg 102.6 kg Intake: IV 320 10 Invasive Line 4 20 10 Oral 118 236 Other: Voiding Method Toilet # Voids 2 2 2 # Bowel Movements 1 - Exam General: Revealed 49-year-old female in no distress, on 2 L nasal cannula Head: Atraumatic, normocephalic Head: atraumatic, normocephalic, symmetric Mouth: Moist mucous membranes, Cardiovascular: S1 S2 tachy. No murmur. Lungs: Diminished breath sounds at the bases minimal crackles no wheezing Ext: No clubbing edema or cyanosis Neuro: Alert oriented x 3 no gross focal deficit Psych: Normal mood affect and no mental status examination Skin: No rashes - Labs CBC & Chem 7: 07/07/24 06:11 07/07/24 06:11 Labs: Abnormal Lab Results - Last 24 Hours (Table) 07/06/24 07/07/24 07/07/24 Range/Units 13:09 06:11 06:11 WBC 20.07 H (4.50-10.00) 10*3/uL Hgb 11.3 L (12.0-15.0) g/dL Hct 36.4 L (37.2-46.3) % MCHC 31.0 L (32.0-37.0) g/dL Plt Count 458 H (140-440) 10*3/uL MPV 9.4 L (9.5-12.2) fL BUN 34 H (7-17) mg/dL Glucose 138 H (74-99) mg/dL Fluid Appearance Blood Tinged A (Clear) Fluid RBC 4860 H (0-2000) /uL Microbiology - Last 24 Hours (Table) 07/06/24 13:09 Acid Fast Bacilli Smear - Preliminary Pleural Fluid 07/06/24 13:09 Gram Stain - Preliminary Pleural Fluid Body Fluid Culture - Preliminary Presumptive Staph aureus Assessment and Plan Assessment: Impression Acute hypoxic respiratory failure, suspect Staph aureus pneumonia, final identification is pending in the meantime patient is on Zosyn History of obstructive sleep apnea syndrome History of gastric sleeve for morbid obesity in 2011 Leukocytosis Degenerative joint disease GERD without esophagitis Benign essential hypertension Dyslipidemia Recommendation: Continue antibiotics, give the patient a dose of vancomycin today, continue Zosyn and adjust antibiotics based on the final culture from BAL Reviewed results of the esophagogram patient will need EGD Echocardiogram, showed mild pulmonary hypertension otherwise unremarkable. Continue bronchodilators discontinue systemic steroids Will continue to follow Time with Patient: Less than 30
[2024-07-07] MEDS ORDERED: VANCOMYCIN 2,000 MG in SODIUM CHLORIDE 0.9% 500 ML 500 ML IVPB ONE (16:00)
[2024-07-07] MEDS: VANCOMYCIN 2,000 MG in SODIUM CHLORIDE 0.9% 500 ML 500 ML IVPB SCH (22:34)
[2024-07-08 07:55] LABS: African American GFR (CKD) >90 (>60 ml/min/1.73 sqM); Non-African American GFR(CKD) >90 (>60 ml/min/1.73 sqM)
[2024-07-08] MEDS: FLUCONAZOLE 100 MG TAB PO SCH (08:47)
[2024-07-08] MEDS: LACTATED RINGERS 1,000 ML IV SCH ×2 (10:10→10:11)
--- NOTE | 2024-07-08 10:55 | P.PN ---
Subjective Progress Note Date: 07/08/24 49 year old F with PMH of Asthma, GERD, HLD, HTN, Anxiety and Depression presents to [facility] as a transfer from [place]. Patient reports shortness of breath with cough productive of yellow-green sputum ongoing for the past day. Patient reports battling recurrent PNA since January. She also reports to right sided pleuritic pain, and posttussive emesis. Smoker for the past 34 years, quit 1.5 years ago. In the ED she underwent extensive evaluation. She was placed on BiPAP for about an hour and was able to be transitioned to nasal cannula. Vital signs now BP 166/80, HR 102, RR 20, T 97.6F, 96% on 2L NC. Lab analysis significant for WBC 17.12, Hg 9.9. K 3.2. Mag 1.6. Trop < 0.1. BNP 30.2. D-Dimer 1.05. COVID, RSV, Flu neg. Lactic 1.8. ABG pH 7.41. EKG sinus tachycardia. CTA chest bilateral infiltrates and dilated esophagus. She is admitted for asthma exacerbation with Pulmonary on consult. Started on bronchodilators, Rocephin/Azithromycin (which was switched to Zosyn) and SoluMedrol. Pulmonary consulted. Legionella Ag neg. BNP 1730. Pro-ken 0.22. RF < 15. LAMIN negative. CT chest shows scattered tree-in-bud nodular opacities and groundglass opacities likely atypical PNA/bronchiolitis with mild pulmonary fibrotic changes along with mildly distended mid to distal fluid filled esophagus. Echo shows EF 55-60% with mod-severe LVH. Underwent bronchoscopy with BAL showing copious secretions which was sent for culture. Patient reported concerns of dysphagia, given history of gastric bypass with Dr. Vanessa, surgery was also consulted. She underwent MBS which showed no a spiration. Underwent EGD showing esophagitis concerning for candidal infection, started on Diflucan. 07/08 Patient was seen and examined. Breathing stable. Currently on 2L NC. Antibotics include Zosyn 3.75g IV TID (D6) and Diflucan 200 mg PO QD (D3). BAL cultures growing presumptive S. aureus, thus Vancomycin dosed per pharmacy was added yesterday. Renal function wnl this morning. General: no distress, appears at stated age Derm: warm, dry Head: atraumatic, normocephalic, symmetric Mouth: no lip lesion, mucus membranes moist Cardiovascular: S1 S2 reg. No murmur. Lungs: Decreased BS bilaterally, no accessory muscle use Ext: no gross muscle atrophy, no edema, no contractures Neuro: No focal neurologic deficits. Psych: Alert and oriented. Based on my assessment of this patient, this patient meets a high complexity level of care. Acute hypoxic respiratory failure secondary to asthma exacerbation + PNA: DuoNeb QID scheduled and PRN for SOB/wheezing. Symbicort 2 INH BID. SoluMedrol 40 mg IV TID. RF < 15. LAMIN and Legionella negative. Singulair 10 mg PO QHS. Spiriva 2 INH QD. Continue Zosyn 3.75 g IV TID (D6) and Vancomycin dosed per pharmacy (D2). Pro-ken 0.22. BNP 1730, Echocardiogram and CT chest as above. Telemetry monitoring. Supplemental O2 to maintain O2 sat > 92%. Status post bronch with BAL, cultures growing presumptive S. aureus. Pulmonary on board. Sepsis likely related to PNA: Management as above. Pro-ken as above. Follow BAL cultures. Telemetry monitoring. Dysphagia due to Esophagitis: ST consulted to evaluate swallow, MBS shows no aspiration. Upper GI shows moderate to severe obstruction at the level of diaphgramatic hiatus. EGD shows esophagitis concerning for candidal infection. Diflucan 200 mg PO QD (D3). Aspiration precautions. Elevated HOB. ST and Surgery on board. Normocytic anemia with Thrombocytosis: Likely iron def. anemia. No signs of active bleeding. Monitor. Elevated D-Dimer: CTA neg for PE. Dyslipidemia: Zetia 10 mg PO QHS. Depression and Anxiety: Prozac 40 mg PO QD. Seroquel 100 mg PO QHS. Effexor 225 mg PO QD. GERD: Protonix 40 mg PO BID. Hypertension: Triamterene-HCTZ 37.5-25 mg PO QD. Resolved: HypoMg, HypoK, HyperK Anticipate DC in 1-2 days after BAL cultures finalize. CODE STATUS: FULL CODE DVT Prophylaxis: Lovenox SQ GI Prophylaxis: Protonix PO Designated medical POA if patient is not able to make medical decisions for themselves: George, Son I have reviewed the following devops consultant notes: Surgery, Pulm. I have reviewed the results of the following tests: Renal function. I have ordered the following tests: Daily renal function and trough while on Vancomycin. I have discussed the care of this patient with the following independent historian: I have independently interpreted the following test below: I have discussed the management of this patient with the following physician: Objective - Vital Signs Vital signs: Vital Signs Temp 97.6 F 07/08/24 08:46 Pulse 100 07/08/24 08:46 Resp 16 07/08/24 08:46 BP 128/82 07/08/24 08:46 Pulse Ox 98 07/08/24 08:46 FiO2 50 07/01/24 08:34 Intake & Output 07/07/24 07/08/24 07/08/24 18:59 06:59 18:59 Intake Total 354 Balance 354 Weight 102.6 kg 103 kg Intake: Oral 354 Other: Voiding Method Toilet Toilet # Voids 2 3 # Bowel Movements 1 - Labs CBC & Chem 7: 07/07/24 06:11 07/08/24 06:48 Labs: Microbiology - Last 24 Hours (Table) 07/06/24 13:09 Gram Stain - Preliminary Pleural Fluid Body Fluid Culture - Preliminary Presumptive Staph aureus 07/06/24 13:09 Acid Fast Bacilli Smear - Preliminary Pleural Fluid
[2024-07-08] MEDS: HYDROmorphone 1 MG/ML 1 ML SYRINGE IVP STA (11:26)
--- NOTE | 2024-07-08 13:15 | P.PN ---
Subjective Progress Note Date: 07/08/24 Principal diagnosis: Chest acute hypoxic respiratory failure possible interstitial lung disease, rule out congestive heart failure On 07/02/2024, the patient is being seen in consult regarding shortness of breath. The patient reports that she has been having shortness of breath since January 2024. She has been told to have pneumonias on several occasions by various health practitioners and the patient was treated accordingly. The patient came into the emergency department at [facility] yesterday complaining of coughing with sputum production a few days duration. Based on that, the patient was given a chest x-ray and the chest x-ray was consistent with cardiomegaly and pulmonary edema. Following that, the patient was given a CAT scan of the chest that was reported to be possible pulmonary infiltrates. Based on that, the patient got transferred to [facility] for further evaluation. The patient is currently on 2 L of oxygen by nasal cannula. Blood work was reviewed and the patient has a white cell count of 20 with a hemoglobin of 11 and a platelet count of 547. BUN is 29 with a creatinine of 0.66 and a sodium levels at 141. Procalcitonin level is at 0.22. Calcium level is at 10.1 and the Legionella urine antigen was negative. The patient was started on IV Zosyn. Hemodynamically stable. Oxygenation is also stable and the patient re harlan on 2 to 3 L/min nasal cannula. No fever documented here in the hospital. According to records from [facility], the viral screen was negative. Her lactic acid level was at 1.8. D-dimer was at 1.05. proBNP level was 30.2. Troponins were negative. Her CTA of the chest showed bilateral infiltrates with groundglass pulmonary opacities. Patient denies having any history of congestio n heart failure. She has undergone previous gastric sleeve for morbid obesity and the patient has lost more than 200 pounds. She has hypertension hyperlipidemia and degenerative arthritis. She has obstructive sleep apnea and she has not utilized CPAP therapy. She is morbidly obese with a body mass index of 40. Patient was seen today on 07/03/2024, feels a bit better, has intermittent cough, O2 sat is 96% on 2 L, remains on empiric antibiotics and diuretics, definite improvement according to the patient which speaks in favor of pulmonary edema rather than interstitial lung disease assuming the patient is truly improving since her admission. Could not visualize the CT of the chest which was done at [place], may have to consider another CT of the chest in our institution. WBC count is 20.9 hemoglobin 11 electrolytes are normal renal profile is normal procalcitonin level is normal BNP level is a bit elevated at 1730 Legionella antigen is negative rheumatoid screen is negative LAMIN is negative Patient was seen today on 07/05/2024, patient continues to have intermittent cough, she was supposed to undergo bronchoscopy and BAL today, however the patient had an upper GI/esophagram which showed significant narrowing in the distal esophagus, and the patient is supposed to have EGD tomorrow. Bronchoscopy was postponed till tomorrow, will likely perform bronchoscopy on this patient after her EGD tomorrow. In the meantime continues to have intermittent episodes of cough, no fever no chills no hemoptysis and no chest pain. Continues to have leukocytosis with WBC count of 20.9 hemoglobin 11 electrolytes are normal renal profile is normal Seen today on 07/07/2024, minimal cough intermittently, feeling a bit better, remains on antibiotics, patient is also on Diflucan, BAL is showing presumptive Staph aureus. Patient is on Zosyn however if this turns out to be MRSA patient needs to be transition to vancomycin in the meantime continue Zosyn. Clinically the patient is feeling better breathing easier, continues to have leukocytosis with WBC of 20.7 hemoglobin 11.3 electrolytes are normal Patient was seen today on 07/08/2024, some improvement but still having intermittent cough, shortness of breath, no wheezing, her BAL came back positive for MRSA, hence I went ahead and changed her antibiotics from Zosyn to vancomycin. Patient will be seen by infectious disease as she may need a PICC line as early as Wednesday, and she could have vancomycin on outpatient basis if agreeable with infectious disease who will be consulted today. Patient continues to have leukocytosis with WBC of 20.07 hemoglobin 11.3, patient is afebrile temp 97.6 blood pressure is normal O2 sat is 98% on 2 L. Objective - Vital Signs Vital signs: Vital Signs Temp 97.6 F 07/08/24 08:46 Pulse 87 07/08/24 11:21 Resp 16 07/08/24 11:21 BP 127/83 07/08/24 11:21 Pulse Ox 98 07/08/24 11:21 FiO2 50 07/01/24 08:34 Intake & Output 07/07/24 07/08/24 07/08/24 18:59 06:59 18:59 Intake Total 354 Balance 354 Weight 102.6 kg 103 kg Intake: Oral 354 Other: Voiding Method Toilet Toilet # Voids 2 3 # Bowel Movements 1 - Exam General: Revealed 49-year-old female in no distress, on 2 L nasal cannula, O2 sat is 98% Head: Atraumatic, normocephalic Head: atraumatic, normocephalic, symmetric Mouth: Moist mucous membranes, Cardiovascular: S1 S2 tachy. No murmur. Lungs: Diminished breath sounds at the bases minimal crackles no wheezing Ext: No clubbing edema or cyanosis Neuro: Alert oriented x 3 no gross focal deficit Psych: Normal mood affect and no mental status examination Skin: No rashes - Labs CBC & Chem 7: 07/07/24 06:11 07/08/24 06:48 Labs: Microbiology - Last 24 Hours (Table) 07/06/24 13:09 Gram Stain - Final Pleural Fluid Body Fluid Culture - Final Methicillin resist S. aureus Viridans streptococcus group Shain albicans 07/06/24 13:09 Acid Fast Bacilli Smear - Preliminary Pleural Fluid Assessment and Plan Assessment: Impression Acute hypoxic respiratory failure, secondary to MRSA pneumonia History of obstructive sleep apnea syndrome History of gastric sleeve for morbid obesity in 2011 Leukocytosis Degenerative joint disease GERD without esophagitis Benign essential hypertension Dyslipidemia Recommendation: Continue vancomycin, DC Zosyn, consult infectious disease for possible treatment on outpatient basis with IV vancomycin via PICC line early next week Continue Diflucan Echocardiogram, showed mild pulmonary hypertension otherwise unremarkable. Continue bronchodilators, no need for Solu-Medrol. Infectious disease consultation was initiated. Will continue to follow Time with Patient: Less than 30
[2024-07-08] MEDS: HYDROmorphone 1 MG/ML 1 ML SYRINGE IVP PRN (16:10)
[2024-07-09 03:50] LABS: African American GFR (CKD) 86 (>60 ml/min/1.73 sqM); Non-African American GFR(CKD) 75 (>60 ml/min/1.73 sqM)
[2024-07-09] MEDS: VANCOMYCIN TROUGH DUE 1 EACH MISC MISCELLANE ONE (08:46)
[2024-07-09] MEDS ORDERED: VANCOMYCIN IV PER PHARMACY 1 EACH MISC MISCELLANE PRN (10:41)
--- NOTE | 2024-07-09 13:14 | P.PN ---
Subjective Progress Note Date: 07/09/24 49 year old F with PMH of Asthma, GERD, HLD, HTN, Anxiety and Depression presents to [facility] as a transfer from [place]. Patient reports shortness of breath with cough productive of yellow-green sputum ongoing for the past day. Patient reports battling recurrent PNA since January. She also reports to right sided pleuritic pain, and posttussive emesis. Smoker for the past 34 years, quit 1.5 years ago. In the ED she underwent extensive evaluation. She was placed on BiPAP for about an hour and was able to be transitioned to nasal cannula. Vital signs now BP 166/80, HR 102, RR 20, T 97.6F, 96% on 2L NC. Lab analysis significant for WBC 17.12, Hg 9.9. K 3.2. Mag 1.6. Trop < 0.1. BNP 30.2. D-Dimer 1.05. COVID, RSV, Flu neg. Lactic 1.8. ABG pH 7.41. EKG sinus tachycardia. CTA chest bilateral infiltrates and dilated esophagus. She is admitted for asthma exacerbation with Pulmonary on consult. Started on bronchodilators, Rocephin/Azithromycin (which was switched to Zosyn) and SoluMedrol. Pulmonary consulted. Legionella Ag neg. BNP 1730. Pro-ken 0.22. RF < 15. LAMIN negative. CT chest shows scattered tree-in-bud nodular opacities and groundglass opacities likely atypical PNA/bronchiolitis with mild pulmonary fibrotic changes along with mildly distended mid to distal fluid filled esophagus. Echo shows EF 55-60% with mod-severe LVH. Underwent bronchoscopy with BAL showing copious secretions which was sent for culture. Patient reported concerns of dysphagia, given history of gastric bypass with Dr. Vanessa, surgery was also consulted. She underwent MBS which showed no a spiration. Underwent EGD showing esophagitis concerning for candidal infection, started on Diflucan. 07/08 Patient was seen and examined. Breathing stable. Currently on 2L NC. She reports 10/10 lower back pain. BAL cultures growing MRSA, Viridans strep and Shani. Antibotics include Vancomycin dosed per pharmacy (D3) and Diflucan 200 mg PO QD (D4). ID has been consulted for possible need for PICC line and retirement antibiotics. Renal function is wnl. Vanc trough is 31.1. General: moderate distress, appears at stated age Derm: warm, dry Head: atraumatic, normocephalic, symmetric Mouth: no lip lesion, mucus membranes moist Cardiovascular: S1 S2 reg. No murmur. Lungs: Decreased BS bilaterally, no accessory muscle use Ext: no gross muscle atrophy, no edema, no contractures Neuro: No focal neurologic deficits. Psych: Alert and oriented. Tenderness to palpation over the paraspinal muscles bilaterally. Based on my assessment of this patient, this patient meets a high complexity level of care. Acute hypoxic respiratory failure secondary to asthma exacerbation + sepsis secondary to PNA: Pro-ken 0.22. BNP 1730, Echocardiogram and CT chest as above. BAL cultures growing MRSA, Viridans strep and Shani. DuoNeb QID scheduled and PRN for SOB/wheezing. Symbicort 2 INH BID. SoluMedrol 40 mg IV TID. Singulair 10 mg PO QHS. Spiriva 2 INH QD. Continue Vancomycin dosed per pharmacy (D3) and D iflucan 200 mg PO QD (D4). Telemetry monitoring. Supplemental O2 to maintain O2 sat > 92%. Pulmonary on board. ID consulted to guide antibiotic therapy. Dysphagia due to Esophagitis: ST consulted to evaluate swallow, MBS shows no aspiration. Upper GI shows moderate to severe obstruction at the level of diaphgramatic hiatus. EGD shows esophagitis concerning for candidal infection. Diflucan 200 mg PO QD (D4). Aspiration precautions. Elevated HOB. ST and Surgery on board. Normocytic anemia with Thrombocytosis: Likely iron def. anemia. No signs of active bleeding. Monitor. Elevated D-Dimer: CTA neg for PE. Dyslipidemia: Zetia 10 mg PO QHS. Depression and Anxiety: Prozac 40 mg PO QD. Seroquel 100 mg PO QHS. Effexor 225 mg PO QD. GERD: Protonix 40 mg PO BID. Hypertension: Triamterene-HCTZ 37.5-25 mg PO QD. Resolved: HypoMg, HypoK, HyperK ID consulted to guide antibiotic therapy. May need PICC line and retirement antibiotics to be done on Wednesday. CODE STATUS: FULL CODE DVT Prophylaxis: Lovenox SQ GI Prophylaxis: Protonix PO Designated medical POA if patient is not able to make medical decisions for themselves: George, Son I have reviewed the following international travel consultant notes: Pulm. I have reviewed the results of the following tests: Renal function. Vanco trough. I have ordered the following tests: Daily renal function and trough while on Vancomycin. I have discussed the care of this patient with the following independent historian: RN regarding management of back pain. I have independently interpreted the following test below: I have discussed the management of this patient with the following physician: Objective - Vital Signs Vital signs: Vital Signs Temp 97.3 F L 07/09/24 02:00 Pulse 86 07/09/24 12:42 Resp 18 07/09/24 07:00 BP 144/78 07/09/24 07:00 Pulse Ox 99 07/09/24 09:12 FiO2 50 07/01/24 08:34 Intake & Output 07/08/24 07/09/24 07/09/24 18:59 06:59 18:59 Intake Total 320 Balance 320 Intake: Oral 320 Other: Voiding Method Toilet Toilet # Voids 1 2 # Bowel Movements 0 - Labs CBC & Chem 7: 07/07/24 06:11 07/09/24 02:56 Labs: Abnormal Lab Results - Last 24 Hours (Table) 07/09/24 Range/Units 07:52 Vancomycin Trough 31.1 H* ug/mL Microbiology - Last 24 Hours (Table) 07/06/24 13:09 Gram Stain - Final Pleural Fluid Body Fluid Culture - Final Methicillin resist S. aureus Viridans streptococcus group Shani albicans
--- NOTE | 2024-07-09 13:22 | P.PN ---
Subjective Progress Note Date: 07/09/24 On 07/02/2024, the patient is being seen in consult regarding shortness of breath. The patient reports that she has been having shortness of breath since January 2024. She has been told to have pneumonias on several occasions by various health practitioners and the patient was treated accordingly. The patient came into the emergency department at [facility] yesterday complaining of coughing with sputum production a few days duration. Based on that, the patient was given a chest x-ray and the chest x-ray was consistent with cardiomegaly and pulmonary edema. Following that, the patient was given a CAT scan of the chest that was reported to be possible pulmonary infiltrates. Based on that, the patient got transferred to [facility] for further evaluation. The patient is currently on 2 L of oxygen by nasal cannula. Blood work was reviewed and the patient has a white cell count of 20 with a hemoglobin of 11 and a platelet count of 547. BUN is 29 with a creatinine of 0.66 and a sodium levels at 141. Procalcitonin level is at 0.22. Calcium level is at 10.1 and the Legionella urine antigen was negative. The patient was started on IV Zosyn. Hemodynamically stable. Oxygenation is also stable and the patient remains on 2 to 3 L/min nasal cannula. No fever documented here in the hospital. According to records from [facility], the viral screen was negative. Her lactic acid level was at 1.8. D-dimer was at 1.05. proBNP level was 30.2. Troponins were negative. Her CTA of the chest showed bilateral infiltrates with groundglass pulmonary opacities. Patient denies having any history of congestion heart failure. She has undergone previous gastric sleeve for morbid obesity and the patient has lost more than 200 pounds. She has hypertension hyperlipidemia and degenerative arthritis. She has obstructive sleep apnea and she has not utilized CPAP therapy. She is morbidly obese with a body mass index of 40. Patient was seen today on 07/03/2024, feels a bit better, has intermittent cough, O2 sat is 96% on 2 L, remains on empiric antibiotics and diuretics, definite improvement according to the patient which speaks in favor of pulmonary edema rather than interstitial lung disease assuming the patient is truly improving since her admission. Could not visualize the CT of the chest which was done at [facility], may have to consider another CT of the chest in our institution. WBC count is 20.9 hemoglobin 11 electrolytes are normal renal profile is normal procalcitonin level is normal BNP level is a bit elevated at 1730 Legionella antigen is negative rheumatoid screen is negative LAMIN is negative The patient is seen today July 04, 2024 in follow-up on the selective care unit. She is currently sitting up in bed. Awake and alert in no acute distress. Still with some loose cough and congestion. Maintaining O2 saturations in the upper 90s on 2 L/min per nasal cannula. She has been afebrile. Hemodynamically stable. CT scan of the chest reveals scattered regions of tree-in-bud nodular opacities and groundglass opacities likely representing an atypical pneumonia. Mild pulmonary fibrotic changes without evidence of honeycombing. Postsurgical changes from gastric sleeve with mildly distended mid to distal fluid-filled esophagus. She is continued on DuoNeb inhalations, Symbicort, Solu-Medrol, Spiriva. Lovenox for DVT prophylaxis. Antibiotics in the form of Zosyn. The patient is seen today July 06, 2024 in follow-up on the selective care unit. She is currently sitting up in bed. Awake and alert in no acute distress. Denies any worsening shortness of breath, cough or congestion. Continue O2 saturations up to 100% on 2 L/min per nasal cannula. She has been afebrile. Hemodynamically stable. Plan is for EGD and bronchoscopy today. She remains on DuoNeb inhalations, Symbicort, Spiriva and Solu-Medrol. Remains on Zosyn. Lovenox for DVT prophylaxis. Seen today on 07/07/2024, minimal cough intermittently, feeling a bit better, remains on antibiotics, patient is also on Diflucan, BAL is showing presumptive Staph aureus. Patient is on Zosyn however if this turns out to be MRSA patient needs to be transition to vancomycin in the meantime continue Zosyn. Clinically the patient is feeling better breathing easier, continues to have leukocytosis with WBC of 20.7 hemoglobin 11.3 electrolytes are normal Patient was seen today on 07/08/2024, some improvement but still having intermittent cough, shortness of breath, no wheezing, her BAL came back positive for MRSA, hence I went ahead and changed her antibiotics from Zosyn to vancomycin. Patient will be seen by infectious disease as she may need a PICC line as early as Wednesday, and she could have vancomycin on outpatient basis if agreeable with infectious disease who will be consulted today. Patient continues to have leukocytosis with WBC of 20.07 hemoglobin 11.3, patient is afebrile temp 97.6 blood pressure is normal O2 sat is 98% on 2 L. The patient is seen today July 09, 2024 in follow-up on the regular medical floor. She is currently sitting up in bed. Awake and alert in no acute distress. Maintaining good O2 saturations in the 90s on room air oxygen. No worsening shortness of breath, cough or congestion. Bronchial wash cultures positive for MRSA and Streptococcus viridans as well as Shani. Cytology pending. She remains on DuoNeb inhalations, Symbicort, Spiriva, Singulair. Remains on vancomycin and Diflucan. Lovenox for DVT prophylaxis. Vancomycin trough 31.1. Objective - Vital Signs Vital signs: Vital Signs Temp 97.3 F L 07/09/24 02:00 Pulse 86 07/09/24 12:42 Resp 18 07/09/24 07:00 BP 144/78 07/09/24 07:00 Pulse Ox 99 07/09/24 09:12 FiO2 50 07/01/24 08:34 Intake & Output 07/08/24 07/09/24 07/09/24 18:59 06:59 18:59 Intake Total 320 Balance 320 Intake: Oral 320 Other: Voiding Method Toilet Toilet # Voids 1 2 # Bowel Movements 0 - Exam GENERAL EXAM: Alert, pleasant 49-year-old female, on room air oxygen, comfortable in no apparent distress. HEAD: Normocephalic. EYES: Normal reaction of pupils, equal size. NOSE: Clear with pink turbinates. THROAT: No erythema or exudates. NECK: No masses, no JVD. CHEST: No chest wall deformity. LUNGS: Equal air entry with bilateral scattered rhonchi. CVS: S1 and S2 normal with no audible murmur, regular rhythm. ABDOMEN: No hepatosplenomegaly, normal bowel sounds, no guarding or rigidity. SPINE: No scoliosis or deformity SKIN: No rashes CENTRAL NERVOUS SYSTEM: No focal deficits, tone is normal in all 4 extremities. EXTREMITIES: There is no peripheral edema. No clubbing, no cyanosis. Peripheral pulses are intact. - Labs CBC & Chem 7: 07/07/24 06:11 07/09/24 02:56 Labs: Abnormal Lab Results - Last 24 Hours (Table) 07/09/24 Range/Units 07:52 Vancomycin Trough 31.1 H* ug/mL Microbiology - Last 24 Hours (Table) 07/06/24 13:09 Gram Stain - Final Pleural Fluid Body Fluid Culture - Final Methicillin resist S. aureus Viridans streptococcus group Shani albicans Assessment and Plan Assessment: Acute hypoxic respiratory failure secondary to pneumonia from MRSA, Streptococcus viridans and Shani pneumonia Leukocytosis secondary to above History of obstructive sleep apnea syndrome History of gastric sleeve for morbid obesity in 2011 Degenerative joint disease GERD without esophagitis Benign essential hypertension Dyslipidemia Plan: The patient was seen and evaluated Medications and labs reviewed BAL cultures reviewed Continue vancomycin Continue Diflucan Continue DuoNeb inhalations Continue Symbicort, Spiriva, Singulair Lovenox for DVT prophylaxis The patient verbalized understanding and is agreeable to the plan I have personally seen and examined the patient, performed the documentation and the assessment and plan as written. Number of minutes spent on the visit: 10 Dictation was produced using [employer] dictation software. Please excuse any grammatical, word or spelling errors.
--- NOTE | 2024-07-09 22:55 | P.CONS ---
History of Present Illness - Reason for Consult Consult date: 07/09/24 MRSA pneumonia Requesting physician: Lizabeth Wesley - Chief Complaint Shortness of breath and cough x days - History of Present Illness Patient is a 49-year-old female with a past medical history significant for asthma history of recurrent pneumonia presenting to the hospital more than a week ago for evaluation of increasing shortness of breath and this patient apparently complaining of shortness of breath getting worse that seem to have not responded to the steroid and outpatient IV steroids patient on presentation to the hospital was complaining of shortness of breath progressively getting worse even at rest the patient also have a cough moderate intensity and bring up some purulent sputum patient did have bilateral lower rib cage pleuritic chest pain moderate intensity without radiation patient denies have any nausea or vomiting no choking on the food abdominal pain only diarrhea on presentation to the hospital the patient was afebrile and no fever have been called subsequently patient was mildly tachycardic on admission subsequently resolved she was not hypotensive mildly hypoxic currently on 2 L nasal cannula oxygen patient did have a white count of 20.95 still elevated 20,000 with a left shift creatinine 0.65 patient did have a chest x-ray diffuse sensation prominence which is improved from prior radiograph correlate for atypical pneumonia patient did have a CT of the chest scattered regions of tree-in-bud nodular opacity and groundglass opacity, patient did have a bronchoscopy with lavage on 07/06/2024 culture has been finalized with MRSA strep viridans and Shani patient is currently on fluconazole and vancomycin which was started on 07/08/2024 prior to that she was treated with Zosyn, infectious disease was consulted for further management of antibiotic therapy Review of Systems Positive point and negatives has been mentioned in the HPI, complete review of systems was performed and all other systems are negative Past Medical History Past Medical History: Asthma Additional Past Medical History / Comment(s): PAST HX OF HTN, DIABETES , NO PROBLEM NOW-CHECKS SELF DAILY BUT TAKES NO MEDS., VARICOSE VEINS, SLEEP APNEA- DOES NOT USE MACHINE, CHRONIC BACK PAIN, RIGHT ROTATOR CUFF TEAR WITH LIMITED R.O.M., RIGGS ON RIGHT ARM, HX OF MULTIPLE KIDNEY INFECTIONS.INTERMITENT PROBLEM SWALLOWING FOODS History of Any Multi-Drug Resistant Organisms: None Reported Past Surgical History: Bariatric Surgery, Section, Cholecystectomy, Orthopedic Surgery, Tubal Ligation Additional Past Surgical History / Comment(s): X3, GASTRIC SLEEVE (2011), OVARY REMOVED., URETERAL STENT.PANNICULECTOMY with 2 kurtis drains rt shoulder Past Anesthesia/Blood Transfusion Reactions: No Reported Reaction Past Psychological History: Anxiety, Depression, Panic Disorder Smoking Status: Former smoker Past Alcohol Use History: None Reported Past Drug Use History: Marijuana Medications and Allergies Home Medications Medication Instructions Recorded Confirmed Type Ascorbic Acid [Vitamin C] 1,000 mg PO DAILY 02/17/16 07/01/24 History Calcium Citrate 1200mg+Vitamin D 1 tab PO DAILY 04/13/16 07/01/24 History EPINEPHrine [Epipen 2-Nikhil] 0.3 mg IM ONCE PRN 06/30/17 07/01/24 History Loratadine [Claritin] 10 mg PO DAILY 06/30/17 07/01/24 History Albuterol Nebulized [Ventolin 2.5 mg INHALATION RT-TID PRN 07/01/24 07/01/24 History Nebulized] Albuterol Sulfate [Albuterol 2 puff INHALATION RT-QID PRN 07/01/24 07/01/24 History Sulfate Hfa] Ezetimibe [Zetia] 10 mg PO HS 07/01/24 07/01/24 History FLUoxetine HCL [PROzac] 40 mg PO DAILY 07/01/24 07/01/24 History Famotidine [Pepcid] 20 mg PO HS 07/01/24 07/01/24 History Fluticasone Nasal [place] [Flonase 1 spray EA NOSTRIL DAILY 07/01/24 07/01/24 History Nasal [place]] Fluticasone/Umeclidin/Vilanter 1 puff INHALATION RT-DAILY 07/01/24 07/01/24 History [Trelegy Ellipta 200-62.5-25] Gabapentin [Neurontin] 800 mg PO BID 07/01/24 07/01/24 History Gabapentin [Neurontin] 800 mg PO DAILY PRN 07/01/24 07/01/24 History Montelukast [Singulair] 10 mg PO HS 07/01/24 07/01/24 History Omeprazole [PriLOSEC] 40 mg PO BID 07/01/24 07/01/24 History QUEtiapine [SEROquel] 100 mg PO HS 07/01/24 07/01/24 History Triamterene-Hctz 37.5-25Mg 1 cap PO DAILY 07/01/24 07/01/24 History [Dyazide 37.5-25 Capsule] Venlafaxine HCl [Effexor XR] 150 mg PO DAILY 07/01/24 07/01/24 History Venlafaxine HCl [Effexor] 75 mg PO DAILY 07/01/24 07/01/24 History Vitamin C/Biotin [Hair, Skin and 1 tab PO DAILY 07/01/24 07/01/24 History Nails Chew] oxyCODONE-APAP 10-325MG [Percocet 1 tab PO TID 07/01/24 07/01/24 History 10-325 mg] tiZANidine [Zanaflex] 8 mg PO TID 07/01/24 07/01/24 History Fluconazole [Diflucan] 200 mg PO DAILY #10 tablet 07/07/24 Rx Allergies Allergy/AdvReac Type Severity Reaction Status Date / Time latex Allergy Unknown Rash/Hives Verified 07/01/24 10:42 animal dander Allergy Unknown Verified 07/01/24 10:42 bee venom protein (honey bee) Allergy Swelling Verified 07/01/24 10:42 Physical Exam Vitals: Vital Signs Temp Pulse Pulse Resp BP Pulse Ox 07/09/24 12:42 86 07/09/24 12:33 88 07/09/24 09:19 78 07/09/24 09:12 74 99 07/09/24 07:00 72 18 144/78 96 07/09/24 02:00 97.3 F L 83 18 96/63 97 07/08/24 21:09 101 H 18 07/08/24 20:58 100 18 07/08/24 20:00 98 F 98 18 137/88 100 07/08/24 16:25 104 H 18 136/83 93 L 07/08/24 16:09 83 16 139/79 98 07/08/24 15:16 103 H 07/08/24 15:07 102 H Intake and Output 07/08/24 07/09/24 07/09/24 22:59 06:59 14:59 Intake Total 320 Balance 320 Intake: Oral 320 Other: Voiding Method Toilet # Voids 1 2 # Bowel Movements 0 GENERAL DESCRIPTION: Middle-age female lying in bed, no distress. No tachypnea or accessory muscle of respiration use. HEENT: Shows Pallor , no scleral icterus. Oral mucous membrane is dry. No pharyngeal erythema or thrush NECK: Trachea central, no thyromegaly. LUNGS: Unlabored breathing. Coarse breath sounds no wheeze HEART: S1, S2, regular rate and rhythm. No loud murmur ABDOMEN: Soft, no tenderness , guarding or rigidity, no organomegaly EXTREMITIES: No edema of feet. SKIN: No rash, no masses palpable. NEUROLOGICAL: The patient is awake, alert, oriented x3, mood and affect normal. Results CBC & Chem 7: 07/07/24 06:11 07/09/24 02:56 Labs: Abnormal Lab Results - Last 24 Hours (Table) 07/09/24 Range/Units 07:52 Vancomycin Trough 31.1 H* ug/mL Microbiology - Last 24 Hours (Table) 07/06/24 13:09 Gram Stain - Final Pleural Fluid Body Fluid Culture - Final Methicillin resist S. aureus Viridans streptococcus group Shani albicans Assessment and Plan (1) MRSA (methicillin resistant Staphylococcus aureus) infection Current Visit: Yes Status: Acute Code(s): A49.02 - METHICILLIN RESIS STAPH INFECTION, UNSP SITE SNOMED Code(s): 363147141 (2) Pneumonia Current Visit: Yes Status: Acute Code(s): J18.9 - PNEUMONIA, UNSPECIFIED ORGANISM SNOMED Code(s): 141012292 Plan: 1patient presented hospital with increasing shortness of breath and cough productive sputum did have pleuritic chest pain with abnormality seen on the chest x-ray CT status post bronchoscopy with culture now positive for MRSA concerning for underlying MRSA pneumonia. 2patient is on SSRI related currently to get the use of Zyvox which may have been ideal for outpatient oral antibiotic therapy. 3patient will be treated with vancomycin pharmacy to dose target of 15 will need a PICC line and at least a 10-day course of IV antibiotic on discharge. We will follow on clinical condition and cultures to further adjust medication if needed Thank you for this consultation we will follow the patient along with you Dictation was produced using [employer] software. please excuse any grammatical, word or spelling errors. Time with Patient: Greater than 30
[2024-07-10 06:53] LABS: African American GFR (CKD) >90 (>60 ml/min/1.73 sqM); Non-African American GFR(CKD) >90 (>60 ml/min/1.73 sqM)
[2024-07-10] MEDS: VANCOMYCIN 2,000 MG in SODIUM CHLORIDE 0.9% 500 ML 500 ML IVPB SCH (11:02)
[2024-07-10] MEDS: oxyCODONE-APAP 10-325MG 1 EACH TAB PO SCH (12:24)
--- NOTE | 2024-07-10 14:30 | P.PN ---
Subjective Progress Note Date: 07/10/24 On 07/02/2024, the patient is being seen in consult regarding shortness of breath. The patient reports that she has been having shortness of breath since January 2024. She has been told to have pneumonias on several occasions by various health practitioners and the patient was treated accordingly. The patient came into the emergency department at [facility] yesterday complaining of coughing with sputum production a few days duration. Based on that, the patient was given a chest x-ray and the chest x-ray was consistent with cardiomegaly and pulmonary edema. Following that, the patient was given a CAT scan of the chest that was reported to be possible pulmonary infiltrates. Based on that, the patient got transferred to [facility] for further evaluation. The patient is currently on 2 L of oxygen by nasal cannula. Blood work was reviewed and the patient has a white cell count of 20 with a hemoglobin of 11 and a platelet count of 547. BUN is 29 with a creatinine of 0.66 and a sodium levels at 141. Procalcitonin level is at 0.22. Calcium level is at 10.1 and the Legionella urine antigen was negative. The patient was started on IV Zosyn. Hemodynamically stable. Oxygenation is also stable and the patient remains on 2 to 3 L/min nasal cannula. No fever documented here in the hospital. According to records from [facility], the viral screen was negative. Her lactic acid level was at 1.8. D-dimer was at 1.05. proBNP level was 30.2. Troponins were negative. Her CTA of the chest showed bilateral infiltrates with groundglass pulmonary opacities. Patient denies having any history of congestion heart failure. She has undergone previous gastric sleeve for morbid obesity and the patient has lost more than 200 pounds. She has hypertension hyperlipidemia and degenerative arthritis. She has obstructive sleep apnea and she has not utilized CPAP therapy. She is morbidly obese with a body mass index of 40. Patient was seen today on 07/03/2024, feels a bit better, has intermittent cough, O2 sat is 96% on 2 L, remains on empiric antibiotics and diuretics, definite improvement according to the patient which speaks in favor of pulmonary edema rather than interstitial lung disease assuming the patient is truly improving since her admission. Could not visualize the CT of the chest which was done at [place], may have to consider another CT of the chest in our institution. WBC count is 20.9 hemoglobin 11 electrolytes are normal renal profile is normal procalcitonin level is normal BNP level is a bit elevated at 1730 Legionella antigen is negative rheumatoid screen is negative LAMIN is negative The patient is seen today July 04, 2024 in follow-up on the selective care unit. She is currently sitting up in bed. Awake and alert in no acute distress. Still with some loose cough and congestion. Maintaining O2 saturations in the upper 90s on 2 L/min per nasal cannula. She has been afebrile. Hemodynamically stable. CT scan of the chest reveals scattered regions of tree-in-bud nodular opacities and groundglass opacities likely representing an atypical pneumonia. Mild pulmonary fibrotic changes without evidence of honeycombing. Postsurgical changes from gastric sleeve with mildly distended mid to distal fluid-filled esophagus. She is continued on DuoNeb inhalations, Symbicort, Solu-Medrol, Spiriva. Lovenox for DVT prophylaxis. Antibiotics in the form of Zosyn. The patient is seen today July 06, 2024 in follow-up on the selective care unit. She is currently sitting up in bed. Awake and alert in no acute distress. Denies any worsening shortness of breath, cough or congestion. Continue O2 saturations up to 100% on 2 L/min per nasal cannula. She has been afebrile. Hemodynamically stable. Plan is for EGD and bronchoscopy today. She remains on DuoNeb inhalations, Symbicort, Spiriva and Solu-Medrol. Remains on Zosyn. Lovenox for DVT prophylaxis. Seen today on 07/07/2024, minimal cough intermittently, feeling a bit better, remains on antibiotics, patient is also on Diflucan, BAL is showing presumptive Staph aureus. Patient is on Zosyn however if this turns out to be MRSA patient needs to be transition to vancomycin in the meantime continue Zosyn. Clinically the patient is feeling better breathing easier, continues to have leukocytosis with WBC of 20.7 hemoglobin 11.3 electrolytes are normal Patient was seen today on 07/08/2024, some improvement but still having intermittent cough, shortness of breath, no wheezing, her BAL came back positive for MRSA, hence I went ahead and changed her antibiotics from Zosyn to vancomycin. Patient will be seen by infectious disease as she may need a PICC line as early as Wednesday, and she could have vancomycin on outpatient basis if agreeable with infectious disease who will be consulted today. Patient continues to have leukocytosis with WBC of 20.07 hemoglobin 11.3, patient is afebrile temp 97.6 blood pressure is normal O2 sat is 98% on 2 L. The patient is seen today July 09, 2024 in follow-up on the regular medical floor. She is currently sitting up in bed. Awake and alert in no acute distress. Maintaining good O2 saturations in the 90s on room air oxygen. No worsening shortness of breath, cough or congestion. Bronchial wash cultures positive for MRSA and Streptococcus viridans as well as Shani. Cytology pending. She remains on DuoNeb inhalations, Symbicort, Spiriva, Singulair. Remains on vancomycin and Diflucan. Lovenox for DVT prophylaxis. Vancomycin trough 31.1. The patient is seen today July 10, 2024 in follow-up on the regular medical floor. She is sitting up at the bedside. Awake and alert in no acute distress. Continues to maintain good O2 saturations in the 90s on 1 L/min per nasal cannula. She remains on DuoNeb inhalations, Symbicort, Spiriva. She remains on vancomycin. Bronchoscopy cultures were positive for MRSA and viridans Streptococcus group and Shani. Creatinine 0.77. GFR greater than 90. Random vancomycin 15.4. Objective - Vital Signs Vital signs: Vital Signs Temp 98.8 F 07/10/24 08:26 Pulse 85 07/10/24 11:39 Resp 18 07/10/24 11:39 BP 144/82 07/10/24 08:26 Pulse Ox 97 07/10/24 10:37 FiO2 50 07/01/24 08:34 Intake & Output 07/09/24 07/10/24 07/10/24 18:59 06:59 18:59 Intake Total 1010 240 Balance 1010 240 Intake: Intake, IV Titration 250 Amount Vancomycin 2,000 mg In 250 Sodium Chloride 0.9% 500 ml 500 ml @ 167 mls/hr IVPB Q12HR [facility] Rx#: [id number] Oral 760 240 Other: Voiding Method Toilet # Voids 4 2 - Exam GENERAL EXAM: Alert, active 49-year-old female, on room air oxygen, in no apparent distress. HEAD: Normocephalic. EYES: Normal reaction of pupils, equal size. NOSE: Clear with pink turbinates. THROAT: No erythema or exudates. NECK: No masses, no JVD. CHEST: No chest wall deformity. LUNGS: Equal air entry with bilateral scattered rhonchi. CVS: S1 and S2 normal with no audible murmur, regular rhythm. ABDOMEN: No hepatosplenomegaly, normal bowel sounds, no guarding or rigidity. SPINE: No scoliosis or deformity SKIN: No rashes CENTRAL NERVOUS SYSTEM: No focal deficits, tone is normal in all 4 extremities. EXTREMITIES: There is no peripheral edema. No clubbing, no cyanosis. Peripheral pulses are intact. - Labs CBC & Chem 7: 07/07/24 06:11 07/10/24 06:05 Labs: Abnormal Lab Results - Last 24 Hours (Table) 07/06/24 Range/Units 13:09 HSV I DNA PCR DETECTED A (Not detected) Assessment and Plan Assessment: Acute hypoxic respiratory failure secondary to pneumonia from MRSA, Streptococcus viridans and Shani pneumonia Leukocytosis secondary to above History of obstructive sleep apnea syndrome History of gastric sleeve for morbid obesity in 2011 Degenerative joint disease GERD without esophagitis Benign essential hypertension Dyslipidemia Plan: The patient was seen and evaluated Medications and labs reviewed BAL cultures reviewed Continue vancomycin Continue Diflucan Continue DuoNeb inhalations Continue Symbicort, Spiriva, Singulair Lovenox for DVT prophylaxis Infectious disease consult PICC line to be placed Will need 10-day course of IV antibiotics I have personally seen and examined the patient, performed the documentation and the assessment and plan as written. Number of minutes spent on the visit: 10 Dictation was produced using [employer] dictation software. Please excuse any grammatical, word or spelling errors.
[2024-07-10 14:51] VITALS: BP 135/84; TEMP 98.9
[2024-07-10 15:44] VITALS: PULSE 88; RESP 18
--- NOTE | 2024-07-10 16:06 | P.DS ---
Providers Date of admission: 07/01/24 09:52 Attending physician: Denise Barrientos DO Consults: 07/01/24 15:38 Consult Physician Routine Consulting Provider: Nat Campuzano Consult Reason/Comments: Asthma Do you want consulting provider notified?: Yes 07/08/24 10:48 Consult Physician Routine Consulting Provider: Olya Wheeler Consult Reason/Comments: MRSA pneumonia Do you want consulting provider notified?: Yes Primary care physician: [facility] Course: Discharge Diagnosis: Acute on chronic hypoxic respiratory failure secondary to asthma exacerbation Sepsis secondary to strep viridans, MRSA, Shani albicans pneumonia Dysphagia Normocytic anemia and thrombocytosis Elevated D-dimer CTA negative for PE Dyslipidemia Depression and anxiety GERD Hypertension Hospital Course: 49 year old F with PMH of Asthma, GERD, HLD, HTN, Anxiety and Depression presents to [facility] as a transfer from [place]. Patient reports shortness of breath with cough productive of yellow-green sputum ongoing for the past day. Patient reports battling recurrent PNA since January. She also reports to right sided pleuritic pain, and posttussive emesis. Smoker for the past 34 years, quit 1.5 years ago. In the ED she underwent extensive evaluation. She was placed on BiPAP for about an hour and was able to be transitioned to nasal cannula. Vital signs now BP 166/80, HR 102, RR 20, T 97.6F, 96% on 2L NC. Lab analysis significant for WBC 17.12, Hg 9.9. K 3.2. Mag 1.6. Trop < 0.1. BNP 30.2. D-Dimer 1.05. COVID, RSV, Flu neg. Lactic 1.8. ABG pH 7.41. EKG sinus tachycardia. CTA chest bilateral infiltrates and dilated esophagus. She is admitted for asthma exacerbation with Pulmonary on consult. Started on bronchodilators, Rocephin/Azithromycin (which was switched to Zosyn) and SoluMedrol. Pulmonary consulted. Legionella Ag neg. BNP 1730. Pro-ken 0.22. RF < 15. LAMIN negative. CT chest shows scattered tree-in-bud nodular opacities and groundglass opacities likely atypical PNA/bronchiolitis with mild pulmonary fibrotic changes along with mildly distended mid to distal fluid filled esophagus. Echo shows EF 55-60% with mod-severe LVH. Underwent bronchoscopy with BAL showing copious secretions which was sent for culture.BAL cultures growing MRSA, Viridans strep and Shani. Antibotics include Vancomycin dosed per pharmacy, Diflucan Patient reported concerns of dysphagia, given history of gastric bypass with Dr. Vanessa, surgery was also consulted. She underwent MBS which showed no aspiration. Underwent EGD showing esophagitis concerning for candidal infection, started on Diflucan. ID recommended PICC line placement that was performed on 07/10/2024, will need 10 days of IV antibiotics as well as oral Diflucan and follow-up with ID at discharge. Home O2 evaluation revealed no needing home O2. Was cleared by pulmonology for discharge on 07/10/2024 Patient to follow-up with PCP, surgery, ID, pulmonology. She will follow-up with her pain specialist regarding chronic back pain Patient seen and examined at bedside.[] Vital signs reviewed and stable. General: [nontoxic], [no distress], [appears at stated age] Derm: [warm], [dry] Head: [atraumatic], [normocephalic], [symmetric] Eyes: [EOMI], [no lid lag], [anicteric sclera] Mouth: [no lip lesion], [mucus membranes moist] Cardiovascular: [S1S2 reg], [no murmur] Lungs: [CTA bilateral], [no rhonchi, no rales] , [no accessory muscle use] Abdominal: [soft], [ nontender to palpation], [no guarding], [no appreciable organomegaly] Ext: [no gross muscle atrophy], [no edema], [no contractures] Neuro: [ CN II-XI grossly intact], [no focal neuro deficits] Psych: [Alert], [oriented], [appropriate affect] A total of 43minutes of time were spent preparing this complex discharge summary. Patient was discharged on 07/10/2024 Patient Condition at Discharge: Stable Plan - Discharge Summary Discharge Rx Participant: No New Discharge Prescriptions: New Fluconazole [Diflucan] 200 mg PO DAILY #10 tablet Continue Ascorbic Acid [Vitamin C] 1,000 mg PO DAILY Calcium Citrate 1200mg+Vitamin D 1 tab PO DAILY Loratadine [Claritin] 10 mg PO DAILY EPINEPHrine [Epipen 2-Nikhil] 0.3 mg IM ONCE PRN PRN Reason: Anaphylaxis Albuterol Sulfate [Albuterol Sulfate Hfa] 2 puff INHALATION RT-QID PRN PRN Reason: Shortness Of Breath Triamterene-Hctz 37.5-25Mg [Dyazide 37.5-25 Capsule] 1 cap PO DAILY Ezetimibe [Zetia] 10 mg PO HS Venlafaxine HCl [Effexor] 75 mg PO DAILY Venlafaxine HCl [Effexor XR] 150 mg PO DAILY Omeprazole [PriLOSEC] 40 mg PO BID tiZANidine [Zanaflex] 8 mg PO TID Fluticasone/Umeclidin/Vilanter [Trelegy Ellipta 200-62.5-25] 1 puff INHAL ATION RT-DAILY Vitamin C/Biotin [Hair, Skin and Nails Chew] 1 tab PO DAILY Fluticasone Nasal Benoit [Flonase Nasal Benoit] 1 spray EA NOSTRIL DAILY Gabapentin [Neurontin] 800 mg PO DAILY PRN PRN Reason: Pain Montelukast [Singulair] 10 mg PO HS Gabapentin [Neurontin] 800 mg PO BID Famotidine [Pepcid] 20 mg PO HS oxyCODONE-APAP 10-325MG [Percocet 10-325 mg] 1 tab PO TID QUEtiapine [SEROquel] 100 mg PO HS FLUoxetine HCL [PROzac] 40 mg PO DAILY Albuterol Nebulized [Ventolin Nebulized] 2.5 mg INHALATION RT-TID PRN PRN Reason: Shortness Of Breath Discharge Medication List Ascorbic Acid [Vitamin C] 1,000 mg PO DAILY 02/17/16 [History] Calcium Citrate 1200mg+Vitamin D 1 tab PO DAILY 04/13/16 [History] EPINEPHrine [Epipen 2-Nikhil] 0.3 mg IM ONCE PRN 06/30/17 [History] Loratadine [Claritin] 10 mg PO DAILY 06/30/17 [History] Albuterol Nebulized [Ventolin Nebulized] 2.5 mg INHALATION RT-TID PRN 07/01/24 [History] Albuterol Sulfate [Albuterol Sulfate Hfa] 2 puff INHALATION RT-QID PRN 07/01/24 [History] Ezetimibe [Zetia] 10 mg PO HS 07/01/24 [History] FLUoxetine HCL [PROzac] 40 mg PO DAILY 07/01/24 [History] Famotidine [Pepcid] 20 mg PO HS 07/01/24 [History] Fluticasone Nasal Benoit [Flonase Nasal Benoit] 1 spray EA NOSTRIL DAILY 07/01/24 [History] Fluticasone/Umeclidin/Vilanter [Trelegy Ellipta 200-62.5-25] 1 puff INHALATION RT-DAILY 07/01/24 [History] Gabapentin [Neurontin] 800 mg PO BID 07/01/24 [History] Gabapentin [Neurontin] 800 mg PO DAILY PRN 07/01/24 [History] Montelukast [Singulair] 10 mg PO HS 07/01/24 [History] Omeprazole [PriLOSEC] 40 mg PO BID 07/01/24 [History] QUEtiapine [SEROquel] 100 mg PO HS 07/01/24 [History] Triamterene-Hctz 37.5-25Mg [Dyazide 37.5-25 Capsule] 1 cap PO DAILY 07/01/24 [History] Venlafaxine HCl [Effexor XR] 150 mg PO DAILY 07/01/24 [History] Venlafaxine HCl [Effexor] 75 mg PO DAILY 07/01/24 [History] Vitamin C/Biotin [Hair, Skin and Nails Chew] 1 tab PO DAILY 07/01/24 [History] oxyCODONE-APAP 10-325MG [Percocet 10-325 mg] 1 tab PO TID 07/01/24 [History] tiZANidine [Zanaflex] 8 mg PO TID 07/01/24 [History] Fluconazole [Diflucan] 200 mg PO DAILY #10 tablet 07/07/24 [Rx] Follow up Appointment(s)/Referral(s): Gisella Araya MD [STAFF PHYSICIAN] - 1 Week Daniel Leigh MD [Primary Care Provider] - 1-2 days [facility] - As Needed [facility], [REFERRING] - As Needed Olya Wheeler MD [STAFF PHYSICIAN] - 1 Week William Vanessa MD [STAFF PHYSICIAN] - 10 Days Activity/Diet/Wound Care/Special Instructions: Please, follow-up with surgery, PCP, pulmonology, infectious disease specialist. as well as your pain specialist Discharge Disposition: HOME WITH HOME HEALTH SERVICES
[2024-07-10] MEDS: GABAPENTIN 400 MG CAP PO SCH (16:30)
--- NOTE | 2024-07-11 15:49 | P.PN ---
Subjective Progress Note Date: 07/10/24 Principal diagnosis: Reason for follow-up is MRSA pneumonia Patient is a 49-year-old female with a past medical history significant for asthma history of recurrent pneumonia presenting to the hospital more than a week ago for evaluation of increasing shortness of breath, patient to have abnormal CT he did have a bronchoscopy lavage on 07/06/2024 came back positive with MRSA prompting this consultation. On today's evaluation that is 07/10/2024,the patient denies any fever or any chills, patient is breathing comfortably on room air, the patient denies chest pain shortness of breath and cough is decreased in intensity to more productive, patient denies abdominal pain, no nausea vomiting or diarrhea. Mention feeling better wants to go home. Patient did have a creatinine 0.77 BUN/creatinine is 15.4 Objective - Vital Signs Vital signs: Vital Signs Temp 98.9 F 07/10/24 14:19 Pulse 106 H 07/10/24 14:19 Resp 20 07/10/24 14:19 BP 135/84 07/10/24 14:19 Pulse Ox 94 L 07/10/24 14:19 FiO2 50 07/01/24 08:34 Intake & Output 07/09/24 07/10/24 07/10/24 18:59 06:59 18:59 Intake Total 1010 240 Balance 1010 240 Intake: Intake, IV Titration 250 Amount Vancomycin 2,000 mg In 250 Sodium Chloride 0.9% 500 ml 500 ml @ 167 mls/hr IVPB Q12HR [facility] Rx#: [id number] Oral 760 240 Other: Voiding Method Toilet # Voids 4 2 - Exam GENERAL DESCRIPTION: Female up in bed in no distress RESPIRATORY SYSTEM: Unlabored breathing , decreased breath sounds at bases HEART: S1 S2 regular rate and rhythm , ABDOMEN: Soft , no tenderness EXTREMITIES: No edema feet - Labs CBC & Chem 7: 07/07/24 06:11 07/10/24 06:05 Labs: Abnormal Lab Results - Last 24 Hours (Table) 07/06/24 Range/Units 13:09 HSV I DNA PCR DETECTED A (Not detected) Assessment and Plan (1) MRSA (methicillin resistant Staphylococcus aureus) infection Status: Acute Code(s): A49.02 - METHICILLIN RESIS STAPH INFECTION, UNSP SITE SNOMED Code(s): 444318897 (2) Pneumonia Status: Acute Code(s): J18.9 - PNEUMONIA, UNSPECIFIED ORGANISM SNOMED Code(s): 873155386 Plan: 1patient presented hospital with increasing shortness of breath and cough productive sputum did have pleuritic chest pain with abnormality seen on the chest x-ray CT status post bronchoscopy with culture now positive for MRSA concerning for underlying MRSA pneumonia. 2patient is on SSRI related currently to get the use of Zyvox which may have been ideal for outpatient oral antibiotic therapy. 3patient did have a PICC line placement she will continue with vancomycin pharmacy to dose to finish 10-day course of IV antibiotic on discharge, prescription provided to briefcase sewer. Dictation was produced using [employer] dictation software. please excuse any grammatical, word or spelling errors. Time with Patient: Less than 30
== END 2024-07-10 18:15 | disposition home health service (06) | DRG 871 ==
LOC: EC 08:23 → 3SCARD 09:52 → 4SSUR 07-08 16:19
PROVIDERS: ADMIT Internal Medicine; ATTEND Internal Medicine
PROC: 02HV33Z Insertion of Infusion Device into Superior Vena Cava, Percutaneous Approach (ICD-10-PCS; 2024-07-01)
PROC: B5181ZA Fluoroscopy of Superior Vena Cava using Low Osmolar Contrast, Guidance (ICD-10-PCS; 2024-07-01)
PROC: B548ZZA Ultrasonography of Superior Vena Cava, Guidance (ICD-10-PCS; 2024-07-01)
PROC: 5A09357 Assistance with Respiratory Ventilation, Less than 24 Consecutive Hours, Continuous Positive Airway Pressure (ICD-10-PCS; 2024-07-01)
PROC: 0DB48ZX Excision of Esophagogastric Junction, Via Natural or Artificial Opening Endoscopic, Diagnostic (ICD-10-PCS; 2024-07-06)
PROC: 0B9D8ZX Drainage of Right Middle Lung Lobe, Via Natural or Artificial Opening Endoscopic, Diagnostic (ICD-10-PCS; principal; 2024-07-06 10:30)
PROC: 0B9F8ZX Drainage of Right Lower Lung Lobe, Via Natural or Artificial Opening Endoscopic, Diagnostic (ICD-10-PCS; 2024-07-06 10:30)
DX: A41.02 Sepsis due to Methicillin resistant Staphylococcus aureus (principal); B37.1 Pulmonary candidiasis; J96.01 Acute respiratory failure with hypoxia; J15.212 Pneumonia due to Methicillin resistant Staphylococcus aureus; J96.21 Acute and chronic respiratory failure with hypoxia; B37.89 Other sites of candidiasis; J44.0 Chronic obstructive pulmonary disease with (acute) lower respiratory infection; E11.9 Type 2 diabetes mellitus without complications; F32.A Depression, unspecified; I10 Essential (primary) hypertension; D50.9 Iron deficiency anemia, unspecified; B37.81 Candidal esophagitis; J44.1 Chronic obstructive pulmonary disease with (acute) exacerbation; J21.9 Acute bronchiolitis, unspecified; J45.901 Unspecified asthma with (acute) exacerbation; B37.7 Candidal sepsis; R13.10 Dysphagia, unspecified; R79.89 Other specified abnormal findings of blood chemistry; E78.5 Hyperlipidemia, unspecified; F41.0 Panic disorder [episodic paroxysmal anxiety]; K21.00 Gastro-esophageal reflux disease with esophagitis, without bleeding; M19.90 Unspecified osteoarthritis, unspecified site; G47.33 Obstructive sleep apnea (adult) (pediatric); D75.839 Thrombocytosis, unspecified; E87.6 Hypokalemia; E83.42 Hypomagnesemia; Z79.899 Other long term (current) drug therapy; D64.9 Anemia, unspecified; G89.29 Other chronic pain; E87.5 Hyperkalemia; K22.89 Other specified disease of esophagus; K44.9 Diaphragmatic hernia without obstruction or gangrene; K59.00 Constipation, unspecified; Z87.891 Personal history of nicotine dependence; Z87.01 Personal history of pneumonia (recurrent); Z98.84 Bariatric surgery status; Z91.040 Latex allergy status; Z91.030 Bee allergy status; Z90.49 Acquired absence of other specified parts of digestive tract; Z87.19 Personal history of other diseases of the digestive system
CPT/HCPCS: 31624; 36573; 43239; 71045; 71250; 74230; 74240; 80048; 80053; 80202; 82565; 83880; 84132; 84145; 84703; 85025; 85027; 86038; 86431; 87070; 87077; 87102; 87116; 87186; 87205; 87206; 87449; 88108; 88305; 88312; 89050; 93306; 94640; 94660; 94760; 96365; 99291